=== PATIENT | female | born 1930 | race Caucasian/White ===

== ENCOUNTER 2016-12-25 16:47 | Emergency (ER) | payer OTHER ==
[~2016-12-25] VITALS: Ht 160 cm; Wt 46.7 kg
[2016-12-25 16:47] VITALS: BP_SYST 115
[~2016-12-25 16:47] MED LIST: AMLO5TAB4 PO; BENA40TA2 PO; LIP10 PO; NITR-85 PO
--- NOTE | 2016-12-25 16:47 | NUR ---
Placed in room 3 . Placed on cardiac cath rn, blood pressure machine and pulse oximeter. To gown for exam. Side rails up.
--- NOTE | 2016-12-25 17:00 | NUR ---
ER at bedside examining patient.
--- NOTE | 2016-12-25 17:09 | NUR ---
transported to CT scan via [facility]
--- NOTE | 2016-12-25 17:11 | NUR ---
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 per her son,they were outside walking, her body was shaky,assited to sit down,she had syncope episode for a few minutes. no trama noted.pt is currently awake,alert oriented x4. denies any pain.pt has early stage of dementia.no apparent neuro deficit noted.
--- NOTE | 2016-12-25 17:26 | NUR ---
returned back from the ct scan
[2016-12-25 17:27] LABS: BASOPHILS % (AUTO) 0.7 % (0.0-2.0); EOSINOPHILS # (AUTO) 0.4 K/uL (0.0-0.4); EOSINOPHILS % (AUTO) 6.8 % (0.0-4.0); HEMATOCRIT 37.3 % (36-48); HEMOGLOBIN 12.7 g/dL (12.0-16.0); LYMPHOCYTES # (AUTO) 0.8 K/uL (1.0-5.5); LYMPHOCYTES % (AUTO) 12.5 % (20.5-51.5); MEAN CORPUSCULAR HEMOGLOBIN 28 pg (27-31); MEAN CORPUSCULAR HGB CONC 34 % (32-36); MEAN CORPUSCULAR VOLUME 84 fL (79.0-98.0); MONOCYTES # (AUTO) 0.4 K/uL (0.0-1.0); MONOCYTES % (AUTO) 5.4 % (1.7-9.3); NEUTROPHILS % (AUTO) 74.6 % (40.0-70.0); PLATELET COUNT (AUTO) 220 K/uL (130-430); RED BLOOD CELL COUNT(AUTO) 4.45 MIL/uL (4.2-6.2); RED CELL DISTRIBUTION WIDTH 13.3 % (9.0-15.0); WHITE BLOOD COUNT (AUTO) 6.6 K/uL (4.8-10.8)
[2016-12-25 17:34] LABS: ANION GAP 5 (5-15); CHLORIDE 107 mmol/L (98-107); CREATININE 1.47 mg/dL (0.55-1.30); GLUCOSE 202 mg/dL (70-99); POTASSIUM 4.2 mmol/L (3.5-5.1); SODIUM SERUM 138 mmol/L (136-145); UREA NITROGEN, BLOOD 28 mg/dL (8-21)
[2016-12-25 17:38] LABS: INR 1.1 (0.8-1.2); PROTHROMBIN TIME 12.1 SECS (9.5-12.5)
[2016-12-25 17:39] LABS: ALANINE AMINOTRANSFERASE 29 U/L (12-78); ALBUMIN 3.6 g/dL (3.4-4.8); ASPARTATE AMINOTRANSFERASE 13 U/L (10-37); TOTAL BILIRUBIN 0.4 mg/dL (0.0-1.0); TOTAL PROTEIN, SERUM 7.5 g/dL (6.4-8.3)
--- NOTE | 2016-12-25 18:32 | NUR ---
# 14 FR In and Out catheter with use of sterile technique. Immediate return of 50 ml urine noted. Urine sample collected and sent to lab. Pt tolerated procedure . Patient unable to toilet self.
[2016-12-25 18:45] LABS: BILIRUBIN,URINE NEGATIVE (NEGATIVE); BLOOD, URINE NEGATIVE (NEGATIVE); CLARITY/URINE HAZY (CLEAR); COLOR,URINE YELLOW (YELLOW); GLUCOSE,URINE NEGATIVE (NEGATIVE); KETONES,URINE NEGATIVE (NEGATIVE); LEUKOCYTE ESTERASE ,URINE NEGATIVE (NEGATIVE); NITRITE, URINE NEGATIVE (NEGATIVE); PROTEIN URINE TRACE (NEGATIVE); UROBILINOGEN,URINE 0.2 (0.2-1.0)
[2016-12-25] MEDS ORDERED: NACL 0.9% 1,000 ML IV ONE (19:00)
[2016-12-25 19:06] LABS: RBC,URINE 0-3 /HPF (0-3)
[2016-12-25 19:07] LABS: BACTERIA,URINE MANY /HPF (None Seen); MUCUS,URINE 3+ /LPF (None Seen)
--- NOTE | 2016-12-25 19:11 | NUR ---
report given to juan ramon MOREIRA
[2016-12-25 20:00] VITALS: BP_SYST 133
--- NOTE | 2016-12-25 20:00 | NUR ---
Patient given written and verbal discharge instructions and verbalizes understanding. ER MD Orona discussed with patient the results and treatment provided. Patient in stable condition. ID arm band removed. no rx given. Patient educated on pain management and to follow up with PMD. Pain Scale 0/10. Opportunity for questions provided and answered.
== END 2016-12-25 20:00 | disposition home or self-care (01) ==
LOC: SED 16:47
DX: E86.0 Dehydration (principal); R55 Syncope and collapse; N39.0 Urinary tract infection, site not specified; F03.90 Unspecified dementia, unspecified severity, without behavioral disturbance, psychotic disturbance, mood disturbance, and anxiety; E11.9 Type 2 diabetes mellitus without complications; I10 Essential (primary) hypertension
CPT/HCPCS: 36415; 70450-TC; 71010; 80053; 81000-TC; 84484; 85025; 85610-TC; 85730-TC; 87086; 93005; 96360; 99285; J7030

== ENCOUNTER 2017-03-21 13:48 | Emergency (ER) | payer OTHER ==
[~2017-03-21] VITALS: Ht 160 cm; Wt 55.3 kg
[2017-03-21 14:01] VITALS: BP_SYST 125
[2017-03-21 15:34] LABS: BILIRUBIN,URINE NEGATIVE (NEGATIVE); CLARITY/URINE CLEAR (CLEAR); COLOR,URINE YELLOW (YELLOW); GLUCOSE,URINE NEGATIVE (NEGATIVE); KETONES,URINE NEGATIVE (NEGATIVE); LEUKOCYTE ESTERASE ,URINE NEGATIVE (NEGATIVE); NITRITE, URINE NEGATIVE (NEGATIVE); PH,URINE 5.5 (5.0-8.0); PROTEIN URINE NEGATIVE (NEGATIVE); UROBILINOGEN,URINE 0.2 (0.2-1.0)
[2017-03-21 15:35] LABS: BLOOD, URINE TRACE (NEGATIVE)
[2017-03-21 15:56] LABS: BACTERIA,URINE FEW /HPF (None Seen); RBC,URINE NONE SEEN /HPF (0-3)
[2017-03-21 15:57] LABS: MUCUS,URINE 2+ /LPF (None Seen)
[2017-03-21 16:35] LABS: ANION GAP 7 (5-15); CALCIUM 10.3 mg/dL (8.4-11.0); CHLORIDE 105 mmol/L (98-107); CREATININE 1.22 mg/dL (0.55-1.30); GLUCOSE 95 mg/dL (70-99); POTASSIUM 3.8 mmol/L (3.5-5.1); SODIUM SERUM 139 mmol/L (136-145); UREA NITROGEN, BLOOD 24 mg/dL (8-21)
[2017-03-21 16:44] LABS: ALANINE AMINOTRANSFERASE 40 U/L (12-78); ALBUMIN 3.8 g/dL (3.4-4.8); ASPARTATE AMINOTRANSFERASE 29 U/L (10-37); TOTAL BILIRUBIN 0.6 mg/dL (0.0-1.0); TOTAL PROTEIN, SERUM 7.3 g/dL (6.4-8.3)
[2017-03-21 18:13] LABS: BASOPHILS # (AUTO) 0.1 K/uL (0.0-0.2); BASOPHILS % (AUTO) 0.7 % (0.0-2.0); EOSINOPHILS # (AUTO) 0.2 K/uL (0.0-0.4); EOSINOPHILS % (AUTO) 2.3 % (0.0-4.0); HEMATOCRIT 36.2 % (36-48); LYMPHOCYTES # (AUTO) 0.8 K/uL (1.0-5.5); LYMPHOCYTES % (AUTO) 11.4 % (20.5-51.5); MEAN CORPUSCULAR HEMOGLOBIN 29 pg (27-31); MEAN CORPUSCULAR HGB CONC 33 % (32-36); MEAN CORPUSCULAR VOLUME 86 fL (79.0-98.0); MONOCYTES # (AUTO) 0.3 K/uL (0.0-1.0); NEUTROPHILS # (AUTO) 5.8 K/uL (1.8-7.7); NEUTROPHILS % (AUTO) 81.6 % (40.0-70.0); PLATELET COUNT (AUTO) 224 K/uL (130-430); RED BLOOD CELL COUNT(AUTO) 4.21 MIL/uL (4.2-6.2); RED CELL DISTRIBUTION WIDTH 13.3 % (9.0-15.0); WHITE BLOOD COUNT (AUTO) 7.2 K/uL (4.8-10.8)
[2017-03-21 18:28] LABS: BARBITURATE, URINE NEGATIVE (NEG <=200); BENZODIAZEPINE, URINE NEGATIVE (NEG <=150); CANNABINOID, URINE NEGATIVE (NEG <=50); COCAINE, URINE NEGATIVE (NEG <=150); METHAMPHETAMINES SCREEN,URINE NEGATIVE (NEG <=500); OPIATE, URINE NEGATIVE (NEG <=100); PHENCYCLIDINE SCREEN,URINE NEGATIVE (NEG <=25); UR TRICYCLIC ANTIDEPRESSANTS NEGATIVE (NEG <=300); URINE AMPHETAMINE NEGATIVE (NEG <=500); URINE METHADONE NEGATIVE (NEG <=200); URINE OXYCODONE SCREEN NEGATIVE (NEG <=100); URINE PROPOXYPHENE SCREEN NEGATIVE (NEG <=300)
[2017-03-21 18:45] VITALS: BP_SYST 136
== END 2017-03-21 18:45 | disposition home or self-care (01) ==
LOC: SED 13:48
DX: F03.90 Unspecified dementia, unspecified severity, without behavioral disturbance, psychotic disturbance, mood disturbance, and anxiety (principal); E11.9 Type 2 diabetes mellitus without complications; I10 Essential (primary) hypertension
CPT/HCPCS: 36415; 70450-TC; 71010; 80053; 80307; 81000-TC; 84484; 85025; 93005; 99285

== ENCOUNTER 2018-03-04 17:42 | Inpatient (IN) | payer OTHER ==
[~2018-03-04] VITALS: Ht 160 cm; Wt 50.8 kg
[2018-03-04 17:58] VITALS: BP_SYST 132
[2018-03-04 18:45] LABS: ANION GAP 11 (5-15); CALCIUM 11.6 mg/dL (8.4-11.0); CHLORIDE 106 mmol/L (98-107); CREATININE 0.97 mg/dL (0.55-1.30); GLUCOSE 115 mg/dL (70-99); POTASSIUM 4.2 mmol/L (3.5-5.1); SODIUM SERUM 139 mmol/L (136-145); UREA NITROGEN, BLOOD 31 mg/dL (8-21)
[2018-03-04 18:46] LABS: BASOPHILS # (AUTO) 0.1 K/uL (0.0-0.2); BASOPHILS % (AUTO) 0.8 % (0.0-2.0); EOSINOPHILS # (AUTO) 0.3 K/uL (0.0-0.4); EOSINOPHILS % (AUTO) 3.9 % (0.0-4.0); HEMATOCRIT 32.3 % (36-48); HEMOGLOBIN 11.1 g/dL (12.0-16.0); LYMPHOCYTES # (AUTO) 1.3 K/uL (1.0-5.5); LYMPHOCYTES % (AUTO) 16.8 % (20.5-51.5); MEAN CORPUSCULAR HEMOGLOBIN 31 pg (27-31); MEAN CORPUSCULAR HGB CONC 34 % (32-36); MEAN CORPUSCULAR VOLUME 90 fL (79.0-98.0); MONOCYTES # (AUTO) 0.4 K/uL (0.0-1.0); NEUTROPHILS # (AUTO) 5.5 K/uL (1.8-7.7); NEUTROPHILS % (AUTO) 73.5 % (40.0-70.0); PLATELET COUNT (AUTO) 185 K/uL (130-430); RED BLOOD CELL COUNT(AUTO) 3.58 MIL/uL (4.2-6.2); RED CELL DISTRIBUTION WIDTH 13.1 % (9.0-15.0); WHITE BLOOD COUNT (AUTO) 7.6 K/uL (4.8-10.8)
[2018-03-04 18:50] LABS: ALANINE AMINOTRANSFERASE 20 U/L (12-78); ALBUMIN 3.3 g/dL (3.4-4.8); ASPARTATE AMINOTRANSFERASE 12 U/L (10-37); PROTHROMBIN TIME 10.5 SECS (9.5-12.5); TOTAL BILIRUBIN 0.5 mg/dL (0.0-1.0)
[2018-03-04 19:26] LABS: BILIRUBIN,URINE NEGATIVE (NEGATIVE); BLOOD, URINE 1+ (NEGATIVE); CLARITY/URINE HAZY (CLEAR); COLOR,URINE YELLOW (YELLOW); GLUCOSE,URINE NEGATIVE (NEGATIVE); KETONES,URINE NEGATIVE (NEGATIVE); LEUKOCYTE ESTERASE ,URINE 1+ (NEGATIVE); NITRITE, URINE POSITIVE (NEGATIVE); PH,URINE 5.5 (5.0-8.0); PROTEIN URINE NEGATIVE (NEGATIVE); UROBILINOGEN,URINE 0.2 (0.2-1.0)
[2018-03-04 19:35] LABS: BACTERIA,URINE MANY /HPF (None Seen); MUCUS,URINE None Seen /LPF (None Seen)
[2018-03-04] MEDS ORDERED: GLU850 PO (19:40)
[2018-03-04] MEDS ORDERED: [UNRECOGNIZED DRUG - CODE] PO (19:40)
[2018-03-04] MEDS ORDERED: cefTRIAXone 1 GM IVPB PREMIX 50 ML IV ONE (19:45)
[2018-03-04] MEDS ORDERED: NACL 0.9% 1,000 ML IV SCH (20:15)
[2018-03-04 20:55] VITALS: BP_SYST 141
[2018-03-05] MEDS: D5/0.45 NS 1,000 ML IV SCH ×4 (00:51→20:26)
[2018-03-05 06:41] LABS: BASOPHILS % (AUTO) 0.6 % (0.0-2.0); EOSINOPHILS # (AUTO) 0.2 K/uL (0.0-0.4); HEMATOCRIT 32.3 % (36-48); HEMOGLOBIN 10.8 g/dL (12.0-16.0); LYMPHOCYTES # (AUTO) 1.1 K/uL (1.0-5.5); LYMPHOCYTES % (AUTO) 18.5 % (20.5-51.5); MEAN CORPUSCULAR HEMOGLOBIN 31 pg (27-31); MEAN CORPUSCULAR HGB CONC 33 % (32-36); MEAN CORPUSCULAR VOLUME 92 fL (79.0-98.0); MONOCYTES # (AUTO) 0.4 K/uL (0.0-1.0); NEUTROPHILS # (AUTO) 4.4 K/uL (1.8-7.7); NEUTROPHILS % (AUTO) 69.9 % (40.0-70.0); PLATELET COUNT (AUTO) 186 K/uL (130-430); RED BLOOD CELL COUNT(AUTO) 3.53 MIL/uL (4.2-6.2); RED CELL DISTRIBUTION WIDTH 12.9 % (9.0-15.0); WHITE BLOOD COUNT (AUTO) 6.1 K/uL (4.8-10.8)
[2018-03-05 06:54] LABS: ALANINE AMINOTRANSFERASE 17 U/L (12-78); ALBUMIN 3.1 g/dL (3.4-4.8); ANION GAP 9 (5-15); ASPARTATE AMINOTRANSFERASE 9 U/L (10-37); CALCIUM 10.8 mg/dL (8.4-11.0); CHLORIDE 106 mmol/L (98-107); CREATININE 0.89 mg/dL (0.55-1.30); GLUCOSE 162 mg/dL (70-99); POTASSIUM 3.7 mmol/L (3.5-5.1); SODIUM SERUM 140 mmol/L (136-145); TOTAL BILIRUBIN 0.5 mg/dL (0.0-1.0); UREA NITROGEN, BLOOD 22 mg/dL (8-21)
[2018-03-05] MEDS: INSULIN REGULAR, HUMAN 100 UNITS/ML, 10 ML VIAL (novoLIN R) SUBCUT PRN ×4 (07:02→20:28)
[2018-03-05 07:45] VITALS: BP_SYST 151
[2018-03-05] MEDS: metFORMIN HCL 500 MG TABLET PO SCH ×2 (09:00→20:17)
[2018-03-05] MEDS ORDERED: DEXTROSE 50% JECT 50 ML DISP.SYRIN IVP PRN (09:15)
[2018-03-05 09:51] LABS: FREE T4 (FREE THYROXINE) 0.9 ng/dL (0.6-1.6); THYROID STIMULATING HORMONE 2.27 uIu/mL (0.34-4.82)
[2018-03-05] MEDS ORDERED: BENAZEPRIL HCL 20 MG TABLET (LOTENSIN) PO ONE (10:45)
[2018-03-05] MEDS ORDERED: amLODIPine BESYLATE 5 MG TABLET PO ONE (11:00)
[2018-03-05] MEDS: ATORVASTATIN 10 MG TABLET PO SCH (11:04)
[2018-03-05] MEDS: LACTOBACILLUS RHAMNOSUS GG 1 CAP CAPSULE PO SCH (11:06)
[2018-03-05 11:30] VITALS: BP_SYST 133
[2018-03-05 15:32] VITALS: BP_SYST 131
[2018-03-05 19:58] VITALS: BP_SYST 138
[2018-03-05] MEDS: cefTRIAXone 1 GM IVPB PREMIX 50 ML IV SCH (20:19)
[2018-03-06 00:46] VITALS: BP_SYST 143
[2018-03-06 05:12] LABS: T3 UPTAKE 30 % (24-39); TRIIODOTHYRONINE (T3) 95 ng/dL (71-180)
[2018-03-06 06:59] LABS: BASOPHILS % (AUTO) 0.3 % (0.0-2.0); EOSINOPHILS # (AUTO) 0.3 K/uL (0.0-0.4); HEMATOCRIT 29.2 % (36-48); HEMOGLOBIN 10.1 g/dL (12.0-16.0); LYMPHOCYTES % (AUTO) 15.8 % (20.5-51.5); MEAN CORPUSCULAR HEMOGLOBIN 31 pg (27-31); MEAN CORPUSCULAR HGB CONC 35 % (32-36); MEAN CORPUSCULAR VOLUME 89 fL (79.0-98.0); MONOCYTES # (AUTO) 0.3 K/uL (0.0-1.0); NEUTROPHILS % (AUTO) 73.9 % (40.0-70.0); PLATELET COUNT (AUTO) 188 K/uL (130-430); RED BLOOD CELL COUNT(AUTO) 3.29 MIL/uL (4.2-6.2); RED CELL DISTRIBUTION WIDTH 13.1 % (9.0-15.0); WHITE BLOOD COUNT (AUTO) 6.6 K/uL (4.8-10.8)
[2018-03-06 07:09] LABS: ANION GAP 11 (5-15); CALCIUM 10.1 mg/dL (8.4-11.0); CHLORIDE 111 mmol/L (98-107); GLUCOSE 134 mg/dL (70-99); PHOSPHORUS 2.5 mg/dL (2.7-4.5); POTASSIUM 3.7 mmol/L (3.5-5.1); SODIUM SERUM 144 mmol/L (136-145); UREA NITROGEN, BLOOD 19 mg/dL (8-21)
[2018-03-06 08:00] VITALS: BP_SYST 157
[2018-03-06] MEDS: LACTOBACILLUS RHAMNOSUS GG 1 CAP CAPSULE PO SCH (08:29)
[2018-03-06] MEDS: metFORMIN HCL 500 MG TABLET PO SCH ×2 (08:29→21:23)
[2018-03-06] MEDS: ATORVASTATIN 10 MG TABLET PO SCH (08:29)
[2018-03-06] MEDS: BENAZEPRIL HCL 20 MG TABLET (LOTENSIN) PO SCH (08:30)
[2018-03-06] MEDS: amLODIPine BESYLATE 5 MG TABLET PO SCH (08:30)
[2018-03-06] MEDS ORDERED: DOCUSATE SODIUM 100 MG CAPSULE PO ONE (10:15)
[2018-03-06] MEDS ORDERED: NAPH,MB-DB/K PH,MBDB 250 MG TAB PO ONE (10:15)
[2018-03-06 11:29] VITALS: BP_SYST 143
[2018-03-06] MEDS ORDERED: CARB1TAB8 PO (11:37)
[2018-03-06] MEDS: INSULIN REGULAR, HUMAN 100 UNITS/ML, 10 ML VIAL (novoLIN R) SUBCUT PRN ×2 (12:06→21:22)
[2018-03-06] MEDS: CARBIDOPA/LEVODOPA 10/100 MG TABLET PO SCH ×3 (13:14→21:25)
[2018-03-06] MEDS: D5/0.45 NS 1,000 ML IV SCH (13:15)
[2018-03-06 15:25] VITALS: BP_SYST 143
[2018-03-06 18:00] VITALS: BP_SYST 143
[2018-03-06 20:00] VITALS: BP_SYST 158
[2018-03-06] MEDS: cefTRIAXone 1 GM IVPB PREMIX 50 ML IV SCH (21:14)
[2018-03-06] MEDS: DOCUSATE SODIUM 100 MG CAPSULE PO SCH (21:14)
[2018-03-07] VITALS: BP_SYST 150
[2018-03-07] MEDS: D5/0.45 NS 1,000 ML IV SCH (05:29)
[2018-03-07 07:42] LABS: EOSINOPHILS # (AUTO) 0.4 K/uL (0.0-0.4); MONOCYTES # (AUTO) 0.4 K/uL (0.0-1.0)
[2018-03-07 07:43] LABS: ANION GAP 7 (5-15); CALCIUM 10.9 mg/dL (8.4-11.0); CHLORIDE 111 mmol/L (98-107); CREATININE 0.84 mg/dL (0.55-1.30); GLUCOSE 105 mg/dL (70-99); PHOSPHORUS 2.6 mg/dL (2.7-4.5); POTASSIUM 3.9 mmol/L (3.5-5.1); SODIUM SERUM 142 mmol/L (136-145); UREA NITROGEN, BLOOD 19 mg/dL (8-21)
[2018-03-07 07:56] LABS: BASOPHILS % (AUTO) 0.6 % (0.0-2.0); EOSINOPHILS % (AUTO) 4.9 % (0.0-4.0); HEMATOCRIT 30.2 % (36-48); HEMOGLOBIN 10.4 g/dL (12.0-16.0); LYMPHOCYTES # (AUTO) 1.1 K/uL (1.0-5.5); LYMPHOCYTES % (AUTO) 13.9 % (20.5-51.5); MEAN CORPUSCULAR HEMOGLOBIN 31 pg (27-31); MEAN CORPUSCULAR HGB CONC 34 % (32-36); MEAN CORPUSCULAR VOLUME 91 fL (79.0-98.0); NEUTROPHILS % (AUTO) 75.6 % (40.0-70.0); PLATELET COUNT (AUTO) 225 K/uL (130-430); RED BLOOD CELL COUNT(AUTO) 3.32 MIL/uL (4.2-6.2); RED CELL DISTRIBUTION WIDTH 13.3 % (9.0-15.0); WHITE BLOOD COUNT (AUTO) 7.9 K/uL (4.8-10.8)
[2018-03-07] MEDS: metFORMIN HCL 500 MG TABLET PO SCH (09:49)
[2018-03-07] MEDS: DOCUSATE SODIUM 100 MG CAPSULE PO SCH (09:49)
[2018-03-07] MEDS: amLODIPine BESYLATE 5 MG TABLET PO SCH (09:50)
[2018-03-07] MEDS: LACTOBACILLUS RHAMNOSUS GG 1 CAP CAPSULE PO SCH (09:50)
[2018-03-07] MEDS: ATORVASTATIN 10 MG TABLET PO SCH (09:50)
[2018-03-07] MEDS: BENAZEPRIL HCL 20 MG TABLET (LOTENSIN) PO SCH (09:50)
[2018-03-07] MEDS: CARBIDOPA/LEVODOPA 10/100 MG TABLET PO SCH ×2 (09:50→15:45)
[2018-03-07] MEDS ORDERED: NAPH,MB-DB/K PH,MBDB 250 MG TAB PO ONE (10:45)
[2018-03-07] MEDS ORDERED: BENA20TA75 PO ×2 (11:19→11:28)
[2018-03-07] MEDS ORDERED: AMLO5TAB4 PO (11:19)
[2018-03-07] MEDS ORDERED: LACT1CAP57 PO (11:19)
[2018-03-07] MEDS ORDERED: DOCU-144 PO (11:19)
[2018-03-07] MEDS ORDERED: CIPR-211 PO (11:21)
[2018-03-07 11:34] VITALS: BP_SYST 178
[2018-03-07] MEDS ORDERED: BENAZEPRIL HCL 20 MG TABLET (LOTENSIN) PO ONE (11:45)
[2018-03-07] MEDS ORDERED: amLODIPine BESYLATE 5 MG TABLET PO ONE (11:45)
[2018-03-07 15:32] VITALS: BP_SYST 139
[2018-03-07 18:30] VITALS: BP_SYST 139
[2018-03-08] MEDS ORDERED: amLODIPine BESYLATE 5 MG TABLET PO SCH (09:00)
[2018-03-08] MEDS ORDERED: BENAZEPRIL HCL 20 MG TABLET (LOTENSIN) PO SCH (09:00)
== END 2018-03-07 19:47 | disposition home health service (06) | DRG 682 ==
LOC: SED 17:42 → STU 20:11 → SMU 03-06 18:52
PROVIDERS: ADMIT Family Medicine; ATTEND Family Medicine
DX: N17.0 Acute kidney failure with tubular necrosis (principal); G93.41 Metabolic encephalopathy; N39.0 Urinary tract infection, site not specified; E44.0 Moderate protein-calorie malnutrition; Z68.1 Body mass index [BMI] 19.9 or less, adult; F03.90 Unspecified dementia, unspecified severity, without behavioral disturbance, psychotic disturbance, mood disturbance, and anxiety; I10 Essential (primary) hypertension; E78.5 Hyperlipidemia, unspecified; E11.65 Type 2 diabetes mellitus with hyperglycemia; E83.39 Other disorders of phosphorus metabolism; B96.20 Unspecified Escherichia coli [E. coli] as the cause of diseases classified elsewhere; Z79.899 Other long term (current) drug therapy; Z90.49 Acquired absence of other specified parts of digestive tract; Z79.84 Long term (current) use of oral hypoglycemic drugs; Z83.3 Family history of diabetes mellitus
CPT/HCPCS: 36415; 71045; 74018; 80048; 80053; 80061; 81000-TC; 82140-TC; 82150-TC; 82962; 83036; 83605; 83690-TC; 83735-TC; 83880; 84100-TC; 84439; 84443-TC; 84479; 84480; 84484; 85025; 85610-TC; 85730-TC; 87040-TC; 87086; 87186-TC; 93005; 93306; 96365; 97110-GP; 97116-GP; 97530-GP; 99285; J0696; J1815; J7030

== ENCOUNTER 2018-05-29 11:29 | Inpatient (IN) | payer OTHER ==
[2018-05-29] VITALS (7 sets, daily range): BP systolic 148–213
[~2018-05-29] VITALS: Ht 165.1 cm; Wt 49.0 kg
[~2018-05-29 11:29] MED LIST changes: +BENA20TA75 PO; -BENA40TA2 PO; +CARB1TAB8 PO; +CIPR-211 PO; +DOCU-144 PO; +GLU850 PO; +LACT1CAP57 PO; -NITR-85 PO
--- NOTE | 2018-05-29 11:42 | NUR ---
Patient to ER bed 01 to gown for evaluation. Side rails up. Report given to ALFREDO MOREIRA.
--- NOTE | 2018-05-29 11:43 | NUR ---
Patient was not able to take PO medication this morning or eat breakfast.
--- NOTE | 2018-05-29 11:45 | NUR ---
ER Dr. Winchester at bedside examining patient.
--- NOTE | 2018-05-29 11:50 | NUR ---
Pt presents to ER brought in by family after having an unwitnessed fall yesterday. Per pt's family, pt was assisted into the bathroom and left unattended, when family returned to restroom pt was found on the ground outside of bathroom laying on her back. Per pt's family, no bleeding present after fall, no lacerations. Pt's family state that this morning, pt had no complaints, was having conversations with family, then while at the table having breakfast pt had sudden onset of lethargy and unresponsiveness. Pt denies any pain but grimaces when abdomen is palpated. Upon arrival to ER, pt AOX2, respirations even and unlabored. Family at bedside.
--- NOTE | 2018-05-29 11:55 | NUR ---
# 22 gauge angiocath placed to LAC. Use of asceptic technique. Opsite placed over site. Blood return noted. Blood for lab drawn from site. Flushed with 10 cc of normal saline. No evidence of infiltration noted. Patient tolerated well.
--- NOTE | 2018-05-29 12:10 | NUR ---
Patient transported to radiology via gurney, accompanied by rad staff.
[2018-05-29 12:22] LABS: BASOPHILS # (AUTO) 0.1 K/uL (0.0-0.2); BASOPHILS % (AUTO) 1.1 % (0.0-2.0); EOSINOPHILS # (AUTO) 0.2 K/uL (0.0-0.4); HEMATOCRIT 38.1 % (36-48); HEMOGLOBIN 12.6 g/dL (12.0-16.0); LYMPHOCYTES # (AUTO) 0.8 K/uL (1.0-5.5); LYMPHOCYTES % (AUTO) 9.5 % (20.5-51.5); MEAN CORPUSCULAR HEMOGLOBIN 29 pg (27-31); MEAN CORPUSCULAR HGB CONC 33 % (32-36); MEAN CORPUSCULAR VOLUME 88 fL (79.0-98.0); MONOCYTES # (AUTO) 0.2 K/uL (0.0-1.0); MONOCYTES % (AUTO) 2.8 % (1.7-9.3); NEUTROPHILS # (AUTO) 7.2 K/uL (1.8-7.7); NEUTROPHILS % (AUTO) 84.6 % (40.0-70.0); RED BLOOD CELL COUNT(AUTO) 4.32 MIL/uL (4.2-6.2); WHITE BLOOD COUNT (AUTO) 8.5 K/uL (4.8-10.8)
[2018-05-29 12:30] LABS: PLATELET COUNT (AUTO) 243 K/uL (130-430)
--- NOTE | 2018-05-29 12:30 | NUR ---
Returned from radiology, back to [facility].
[2018-05-29] MEDS ORDERED: IRBE300T40 PO (12:39)
[2018-05-29] MEDS ORDERED: ENALAPRILAT DIHYDRATE 1.25 MG/ML VIAL IVP ONE ×2 (12:45→13:45)
--- NOTE | 2018-05-29 12:50 | NUR ---
Medication reconciliation completed based upon list provided by family.
[2018-05-29] MEDS ORDERED: BENA20TA2 PO (12:52)
[2018-05-29] MEDS ORDERED: LACT1CAP61 PO (12:52)
[2018-05-29] MEDS ORDERED: DOCU-144 PO (12:52)
[2018-05-29] MEDS ORDERED: NOR10 PO (12:52)
[2018-05-29] MEDS ORDERED: MEGE40TA PO (12:52)
[2018-05-29 13:14] LABS: ANION GAP 10 (5-15); CALCIUM 11.2 mg/dL (8.4-11.0); CHLORIDE 104 mmol/L (98-107); GLUCOSE 163 mg/dL (70-99); POTASSIUM 4.1 mmol/L (3.5-5.1); SODIUM SERUM 139 mmol/L (136-145); UREA NITROGEN, BLOOD 19 mg/dL (8-21)
--- NOTE | 2018-05-29 13:16 | NUR ---
Medicated per MD orders. IVF infusing with no s/s of infiltration at this time. Will continue to monitor
[2018-05-29 13:19] LABS: INR 1.1 (0.8-1.2); PROTHROMBIN TIME 10.9 SECS (9.5-12.5)
[2018-05-29 13:23] LABS: ALANINE AMINOTRANSFERASE 19 U/L (12-78); ALBUMIN 3.5 g/dL (3.4-4.8); ASPARTATE AMINOTRANSFERASE 17 U/L (10-37); LIPASE 139 U/L (73-393); TOTAL BILIRUBIN 0.8 mg/dL (0.0-1.0)
[2018-05-29 14:13] LABS: BILIRUBIN,URINE NEGATIVE (NEGATIVE); BLOOD, URINE 2+ (NEGATIVE); CLARITY/URINE CLOUDY (CLEAR); COLOR,URINE YELLOW (YELLOW); GLUCOSE,URINE NEGATIVE (NEGATIVE); KETONES,URINE NEGATIVE (NEGATIVE); LEUKOCYTE ESTERASE ,URINE 2+ (NEGATIVE); NITRITE, URINE NEGATIVE (NEGATIVE); PROTEIN URINE 2+ (NEGATIVE); UROBILINOGEN,URINE 0.2 (0.2-1.0)
[2018-05-29 14:25] LABS: BACTERIA,URINE MANY /HPF (None Seen); MUCUS,URINE None Seen /LPF (None Seen); YEAST,URINE None Seen /HPF (None Seen)
--- NOTE | 2018-05-29 14:28 | NUR ---
Admitting orders taken from Dr. Grigsby.
[2018-05-29] MEDS ORDERED: cefTRIAXone 1 GM IVPB PREMIX 50 ML IV ONE (14:30)
[2018-05-29] MEDS ORDERED: LABETALOL 100 MG/ 20ML VIAL IVP ONE (14:30)
--- NOTE | 2018-05-29 14:30 | NUR ---
Post administration of Labetalol 10mg, BP 183/87 HR 79. Pt tolerated med administration well; will continue to monitor.
--- NOTE | 2018-05-29 14:40 | NUR ---
Laboratory at bedside for blood draw.
--- NOTE | 2018-05-29 14:57 | NUR ---
ADMISSION NOTE Received patient from ER via [facility], received report from TOUCHER UP. Patient admitted with diagnosis of SP FALL. Patient oriented to hospital routine, call light, toileting and safety-patient verbalized understanding.
--- NOTE | 2018-05-29 15:00 | NUR ---
Patient will be admitted to care of Dr. Grigsby. Admitted to tele unit. Will go to room 104b. Belongings list completed. Summary report printed. Report will be given at bedside. Transfer to tele via ACLS protocol. Licensed nurse present. IV present no signs or symptoms of infiltration.
--- NOTE | 2018-05-29 16:17 | NUR ---
Consult called: for Dr. Perez, regarding altered mental status, ordered by Dr. Grigsby, spoke with Michelle.
[2018-05-29] MEDS ORDERED: ZOLPIDEM TARTRATE 5 MG TABLET PO PRN (16:45)
[2018-05-29] MEDS ORDERED: ACETAMINOPHEN 325 MG TABLET PO PRN (16:45)
[2018-05-29] MEDS ORDERED: BENAZEPRIL HCL 20 MG TABLET (LOTENSIN) PO ONE (17:00)
--- NOTE | 2018-05-29 17:10 | NUR ---
BP: BP = 192/103, Dr Grigsby is aware. First dose of Benazepril 20mg given. Will continue to monitor.
[2018-05-29] MEDS ORDERED: INSULIN REGULAR, HUMAN 100 UNITS/ML, 10 ML VIAL (novoLIN R) SUBCUT PRN (17:15)
--- NOTE | 2018-05-29 17:30 | NUR ---
SKIN CARE: Bilateral heels off loaded with pillow due to redness. Patient needs assist in turning.
[2018-05-29] MEDS ORDERED: GLUCOSE 15 GM GEL (in 37.5 GM TUBE) PO PRN ×2 (17:45)
[2018-05-29] MEDS ORDERED: DEXTROSE 50%-WATER 50 ML DISP.SYRIN IVP PRN ×2 (17:45)
--- NOTE | 2018-05-29 18:19 | NUR ---
end of shift: Patient is still confused but cooperative. Ate 10% for dinner. Bilateral SCD applied for DVT prophylaxis.
--- NOTE | 2018-05-29 19:22 | NUR ---
ELEVATED BP: Bp recheck = 226/107after Lotensin dose. Dr. Grigsby is aware with new order of Norvasc 10 mg now.
--- NOTE | 2018-05-29 19:25 | NUR ---
OPENING NOTE RECEIVED PT AND REPORT FROM DAY SHIFT NURSE. PT IS ASLEEP IN BED. PT SPEAKS LUXEMBOURGER. PT APPEARS CONFUSED AND LETHARGIC. PT ON ROOM AIR. IV IS INTACT AND PATENT. FAMILY AT BEDSIDE. FALL AND SAFETY PRECAUTIONS IN PLACE. BED LOCKED IN LOWEST POSITION. BED ALARM ON. CALL LIGHT WITH PT. WILL FOLLOW ORDERS FOR BLOOD PRESSURE MANAGEMENT. WILL MONITOR CLOSELY.
[2018-05-29] MEDS ORDERED: amLODIPine BESYLATE 10 MG TABLET PO ONE (19:30)
--- NOTE | 2018-05-29 19:36 | NUR ---
BP WASH OIL COOLER OPERATOR ADMINISTERED BP MED PER ORDERS. BP CURRENTLY 213/95. WILL CONTINUE TO MONITOR.
--- NOTE | 2018-05-29 20:47 | NUR ---
REASSESS BP BP NOW 162/87, HR:85
--- NOTE | 2018-05-29 21:00 | NUR ---
ARMINDA, ORDERS INFORMED DR HILLIARD OF BLOOD PRESSURE AND POSSIBLE NEED FOR SPEECH EVALUATION. DR HILLIARD WILL PUT IN ORDERS. WILL FOLLOW ORDERS.
[2018-05-29] MEDS: DOCUSATE SODIUM 100 MG CAPSULE PO SCH (21:22)
[2018-05-29] MEDS: CARBIDOPA/LEVODOPA 10/100 MG TABLET PO SCH (21:22)
--- NOTE | 2018-05-29 21:22 | NUR ---
GENERAL LOT ATTENDANT/ BS ADMINISTERED MEDICATIONS PER ORDERS. BLOOD SUGAR READING OF 162. NO COVERAGE PER SLIDING SCALE. WILL CONTINUE TO MONITOR.
--- NOTE | 2018-05-29 23:50 | NUR ---
ROUNDING NOTE PT RESTING IN BED. PT APPEARS MORE AWAKE. PT REMAINS CONFUSED. PT SPEAKS NEPALI. PT DENIES ANY NEEDS. WILL CONTINUE TO MONITOR.
--- NOTE | 2018-05-30 01:25 | NUR ---
ROUNDING NOTE PT IS SLEEPING IN BED. NO S/S OF DISTRESS OR DISCOMFORT. CALL LIGHT WITH PT. WILL CONTINUE TO MONITOR.
--- NOTE | 2018-05-30 03:30 | NUR ---
ROUNDING NOTE PT REMAINS ASLEEP. NO SIGNS OF ACUTE DISTRESS. FALL PRECAUTIONS IN PLACE. WILL CONTINUE TO MONITOR.
[2018-05-30 04:30] VITALS: BP_SYST 177
[2018-05-30] MEDS: cloNIDine HCL 0.1 MG TABLET PO PRN (04:30)
--- NOTE | 2018-05-30 04:35 | NUR ---
HIGH BP BLOOD PRESSURE READING OF 177/85. ADMINISTERED PRN BP MEDICATION PER ORDERS. WILL CONTINUE TO MONITOR.
--- NOTE | 2018-05-30 05:11 | NUR ---
CONSULTATION PAGED/CALLED Reason for Consultation: ASHLIE JEREZ Person Who was Notified: [employer]REE [employer] Consulting Physician: Geography Faculty Member Specialty:SPEECH THERAPY Ordering Physician: ARMINDA
--- NOTE | 2018-05-30 05:35 | NUR ---
BP REASSESS BP: 104/58
[2018-05-30 05:40] VITALS: BP_SYST 104
--- NOTE | 2018-05-30 06:00 | NUR ---
BLOOD SUGAR BLOOD SUGAR READING OF 147. NO COVERAGE PER SLIDING SCALE. PT RESTING. WILL CONTINUE TO MONITOR.
--- NOTE | 2018-05-30 06:48 | NUR ---
CLOSING NOTE WILL ENDORSE CARE AND REPORT TO DAY SHIFT. PT SLEEPING IN BED. NO S/S OF DISTRESS OR DISCOMFORT. PT IN STABLE CONDITION. ALL NEEDS MET THROUGHOUT SHIFT. FALL AND SAFETY PRECAUTIONS MAINTAINED DURING SHIFT. BP MANAGED THROUGHOUT SHIFT. CALL LIGHT WITH PT. WILL CONTINUE TO MONITOR.
--- NOTE | 2018-05-30 07:59 | NUR ---
OPENING NOTE: RECEIVED REPORT FROM NIGHT NURSE. PATIENT IS SLEEPING COMFORTABLY IN BED. NO S/S OF DISTRESS OR SOB. VITAL SIGNS WNL. PATIENT ON ROOM AIR. SAFETY PRECAUTIONS IN PLACE. CALL LIGHT IN REACH, BED IN LOWEST POSITION, AND WILL CONTINUE TO MONITOR.
[2018-05-30 08:04] VITALS: BP_SYST 117
[2018-05-30] MEDS: NACL 0.9% 1,000 ML IV SCH ×2 (08:18→20:18)
[2018-05-30] MEDS: CARBIDOPA/LEVODOPA 10/100 MG TABLET PO SCH ×3 (08:25→20:19)
[2018-05-30] MEDS: cefTRIAXone 1 GM in D5W 50 ML IV SCH (08:25)
[2018-05-30] MEDS: ATORVASTATIN 10 MG TABLET PO SCH (08:25)
--- NOTE | 2018-05-30 08:25 | NUR ---
Nutrition Update Michele Scale 12 noted. Pt admitted for s/p fall, altered mental status. Diet: NPO BMI: 18 kg/m2 RD to follow per nutrition care standards.
[2018-05-30] MEDS: amLODIPine BESYLATE 10 MG TABLET PO SCH (08:26)
[2018-05-30] MEDS: MEGESTROL ACETATE 40 MG TABLET PO SCH (08:27)
[2018-05-30] MEDS: LOSARTAN POTASSIUM 50 MG TABLET (COZAAR) PO SCH (08:27)
[2018-05-30] MEDS: DOCUSATE SODIUM 100 MG CAPSULE PO SCH ×2 (08:29→20:18)
[2018-05-30] MEDS ORDERED: BENAZEPRIL HCL 20 MG TABLET (LOTENSIN) PO SCH (09:00)
[2018-05-30 09:07] LABS: ANION GAP 6 (5-15); CALCIUM 10.4 mg/dL (8.4-11.0); CHLORIDE 105 mmol/L (98-107); CREATININE 0.84 mg/dL (0.55-1.30); GLUCOSE 141 mg/dL (70-99); POTASSIUM 3.6 mmol/L (3.5-5.1); SODIUM SERUM 138 mmol/L (136-145); THYROID STIMULATING HORMONE 1.08 uIu/mL (0.34-4.82); UREA NITROGEN, BLOOD 18 mg/dL (8-21)
--- NOTE | 2018-05-30 10:38 | NUR ---
RN ROUNDS PATIENT IS SLEEPING COMFORTABLY IN BED. NO S/S OF DISTRESS OR SOB. PATIENTS SON WAS VISITING. DR. HILLIARD MADE ROUNDS. IV IS PATENT AND INFUSING. NO NEEDS AT THIS MOMENT. CALL LIGHT IN REACH, BED IN LOWEST POSITION, AND WILL CONTINUE TO MONITOR.
[2018-05-30 12:02] VITALS: BP_SYST 106
--- NOTE | 2018-05-30 12:18 | NUR ---
S.T. SWALLOW EVAL COMPLETED. DTR PRESENT. PT PRESENTS W/ PT PRESENTS W/ MOD ORAL AND ML-MOD PHARYNGEAL DYSPHAGIA W/ DELAYED BOLUS TRANSFER, ML PROLONGED MASTICATION, AND DELAYED SWALLOW AT TIMES. COUGHING X 1 ON NECTAR THICK LIQUIDS; BUT NO COUGHING ON SUBSEQUENT THICK AND THIN LIQUID SWALLOWS REC: MECH SOFT FINELY CHOPPED DIET. THIN LIQUIDS OK. ENCOURAGED DAUGHTER TO HAVE PT'S HOME CAREGIVER TO COME DURING MEAL TIMES. SHE VERBALIZED AGREEMENT. NURSE DEJON NOTIFIED. G8996 CK G8997 CK G8998 CK NOMS LEVEL 4.
--- NOTE | 2018-05-30 12:55 | NUR ---
RN ROUNDS PATIENT IS RESTING COMFORTABLY IN BED. NO S/S OF DISTRESS OR SOB. PATIENT IS AWAKE BUT NOT ALERT. DAUGHTER AT BEDSIDE. SWALLOW EVALUATION COMPLETE. DIET ORDER CHANGED. CALL LIGHT IN REACH, BED IN LOWEST POSITION, AND WILL CONTINUE TO MONITOR.
--- NOTE | 2018-05-30 14:10 | NUR ---
Wound Evaluation: Late note for 1410 secondary to patient care. Wound Consult ordered for Low Michele Score. Patient evaluated for a low Michele score of 12. Patient was awake, alert, confused, and received in a [place] Bed with an Atmos-Air 9000 mattress. Patient needs to be turned in bed. Skin is fair. Recommend reposition patient side to side only every 2 hours with pillow support. Elevate, off-load and float bilateral heels with pillows. Offload pressure areas with pillows for pressure re-distribution. Perform skin care and monitor skin integrity Q shift. Use moisture barrier cream on moisture susceptible areas QID and PRN for soiling. Place patient on a low air-loss mattress. Skin assessment: 1. Buttocks: Blanchable erythema from IAD, present on admission. Recommend: Cleanse involved areas with mild soap and water. Pat dry. Apply Hydraguard moisture barrier cream to involved areas. Perform site care 4 times a day, and as needed for soiling. 2. Bilateral heels: Dry flaky skin, with blanchable erythema, present on admission. Recommend: Elevate, offload and float bilateral heels with one pillow lengthwise under each extremity at all times. Will continue to follow as a Michele.
--- NOTE | 2018-05-30 14:48 | NUR ---
RN ROUNDS PATIENT IS RESTING COMFORTABLY IN BED. NO S/S OF DISTRESS OR SOB. NO NEEDS EXPRESSED AT THIS TIME. CALL LIGHT IN REACH, BED IN LOWEST POSITION, AND WILL CONTINUE TO MONITOR.
[2018-05-30 16:04] VITALS: BP_SYST 102
--- NOTE | 2018-05-30 16:30 | NUR ---
RN ROUNDS PATIENT IS SLEEPING COMFORTABLY IN BED. NO S/S OF DISTRESS OR SOB. NO NEEDS AT THIS TIME. CALL LIGHT IN REACH, BED IN LOWEST POSITION, AND WILL CONTINUE TO MONITOR.
[2018-05-30] MEDS: INSULIN ASPART 100 UNITS/ML, 10 ML VIAL (NovoLOG) SUBCUT PRN ×2 (16:55→20:32)
--- NOTE | 2018-05-30 18:20 | NUR ---
CLOSING NOTE: PATIENT IS RESTING COMFORTABLY IN BED. SON IS AT BEDSIDE. PATIENT IN STABLE CONDITION. NO S/S OF DISTRESS OR SOB. SON IS FEEDING DINNER. BLOOD PRESSURE CONTROLLED DURING SHIFT. ALL NEEDS MET. IV IS PATENT AND INFUSING. CALL LIGHT IN REACH, BED IN LOWEST POSITION, AND WILL GIVE REPORT TO NIGHT NURSE.
--- NOTE | 2018-05-30 19:05 | NUR ---
OPENING NOTE RECEIVED PT ENDORSEMENT REPORT FROM DAY SHIFT NURSE DEJON AT BEDSIDE. PT IS AOX2, PT RESTING COMFORTABLY IN BED WITH EYES OPEN. PT'S DTR AT BEDSIDE. PT'S CHEST RISE EVEN AND UNLABORED. NO COMPLAINTS OF PAIN AT THIS TIME. NO DISTRESS NOTED. NO RESPIRATORY DISTRESS NOTED.PT IS ON RA. PT'S IV ON LEFT FA 22G. PT ORIENTED TO HOSPITAL ROOM, PT INSTRUCTED HOW TO USE CALL LIGHT AND ROOM PHONE, PT VERBALIZED UNDERSTANDING. PT AWARE TO CALL FOR ASSISTANCE. PT INSTRUCTED ON PT SAFETY, PT VERBALIZED UNDERSTANDING. SAFETY MEASURES IN PLACE, CALL LIGHT AND ROOM PHONE WITHIN REACH, BED BRAKES LOCKED, BED ALARM ON, BED RAILS UP X2, BED IN LOWEST POSITION, BEDSIDE TABLE WITHIN REACH. NO NEEDS AT THIS TIME, WILL CONTINUE TO MONITOR PT AND CONTINUE POC.
[2018-05-30 19:30] VITALS: BP_SYST 140
--- NOTE | 2018-05-30 19:30 | NUR ---
RN ROUNDS PT RESTING COMFORTABLY IN BED WITH EYES OPEN. PT'S CHEST RISE EVEN AND UNLABORED. NO COMPLAINTS OF PAIN AT THIS TIME. NO DISTRESS NOTED. NO RESPIRATORY DISTRESS NOTED. PT'S IVF INFUSING WELL. VITAL SIGNS WNL. NO OTHER NEEDS AT THIS TIME. SAFETY MEASURES IN PLACE, CALL LIGHT AND ROOM PHONE WITHIN REACH, BED BRAKES LOCKED, BED ALARM ON, BED RAILS UP X2, BED IN LOWEST POSITION, BEDSIDE TABLE WITHIN REACH. WILL CONTINUE TO MONITOR PT AND CONTINUE POC.
--- NOTE | 2018-05-30 20:28 | NUR ---
RN ROUNDS PT RESTING COMFORTABLY IN BED WITH EYES OPEN. PT'S CHEST RISE EVEN AND UNLABORED. NO COMPLAINTS OF PAIN AT THIS TIME. NO DISTRESS NOTED. NO RESPIRATORY DISTRESS NOTED. IVF INFUSING WELL. SCHEDULED MEDICATIONS ADMINISTERED ORDERED, PT TOLERATED MEDICATIONS WELL. BS 205, 4 UN OF NOVOLOG ADMINISTERED PER SLIDING SCALE PROTOCOL. NO OTHER NEEDS AT THIS TIME. SAFETY MEASURES IN PLACE. WILL CONTINUE TO MONITOR PT AND CONTINUE POC.
--- NOTE | 2018-05-30 22:35 | NUR ---
RN ROUNDS PT RESTING COMFORTABLY IN BED WITH EYES OPEN. PT'S CHEST RISE EVEN AND UNLABORED. NO COMPLAINTS OF PAIN AT THIS TIME. NO DISTRESS NOTED. NO RESPIRATORY DISTRESS NOTED. PT'S IVF INFUSING WELL. NO NEEDS AT THIS TIME. SAFETY MEASURES IN PLACE, CALL LIGHT AND ROOM PHONE WITHIN REACH, BED BRAKES LOCKED, BED ALARM ON, BED RAILS UP X2, BED IN LOWEST POSITION, BEDSIDE TABLE WITHIN REACH. WILL CONTINUE TO MONITOR PT AND CONTINUE POC.
--- NOTE | 2018-05-31 00:16 | NUR ---
RN ROUNDS PT RESTING COMFORTABLY IN BED WITH EYES CLOSED. PT'S CHEST RISE EVEN AND UNLABORED. NO DISTRESS NOTED. NO RESPIRATORY DISTRESS NOTED. NO S/S OF PAIN NOTED. SAFETY MEASURES IN PLACE, CALL LIGHT AND ROOM PHONE WITHIN REACH, BED BRAKES LOCKED, BED ALARM ON, BED RAILS UP X2, BED IN LOWEST POSITION, BEDSIDE TABLE WITHIN REACH. NO NEEDS AT THIS TIME, WILL CONTINUE TO MONITOR PT AND CONTINUE POC.
[2018-05-31 00:47] VITALS: BP_SYST 158
--- NOTE | 2018-05-31 02:32 | NUR ---
RN ROUNDS PT RESTING COMFORTABLY IN BED WITH EYES CLOSED. PT'S CHEST RISE EVEN AND UNLABORED. NO DISTRESS NOTED. NO RESPIRATORY DISTRESS NOTED. NO NEEDS AT THIS TIME. SAFETY MEASURES IN PLACE. WILL CONTINUE TO MONITOR PT AND CONTINUE POC.
--- NOTE | 2018-05-31 04:30 | NUR ---
RN ROUNDS PT RESTING COMFORTABLY IN BED WITH EYES CLOSED. PT'S CHEST RISE EVEN AND UNLABORED. NO DISTRESS NOTED. NO RESPIRATORY DISTRESS NOTED. IVF INFUSING WELL. SAFETY MEASURES IN PLACE. WILL CONTINUE TO MONITOR PT AND CONTINUE POC.
--- NOTE | 2018-05-31 06:07 | NUR ---
BS 111, NO COVERAGE
--- NOTE | 2018-05-31 06:55 | NUR ---
CLOSING NOTE WILL ENDORSE PT REPORT TO DAY SHIFT NURSE AT BEDSIDE. PT IS AOX2, PT RESTING COMFORTABLY IN BED WITH EYES CLOSED. PT'S CHEST RISE EVEN AND UNLABORED. NO COMPLAINTS OF PAIN THROUGHOUT THE SHIFT. NO DISTRESS NOTED, NO RESPIRATORY DISTRESS NOTED THROUGHOUT SHIFT. PT'S IV INFUSING WELL. ALL NEEDS MET THROUGHOUT SHIFT. ALL SCHEDULED MEDICATIONS ADMINISTERED SCHEDULED, PT TOLERATED WELL. PT ORIENTED TO HOSPITAL ROOM, PT INSTRUCTED HOW TO USE CALL LIGHT AND ROOM PHONE, PT VERBALIZED UNDERSTANDING. PT AWARE TO CALL FOR ASSISTANCE. PT INSTRUCTED ON PT SAFETY, PT VERBALIZED UNDERSTANDING. SAFETY MEASURES IN PLACE, CALL LIGHT AND ROOM PHONE WITHIN REACH, BED BRAKES LOCKED, BED ALARM ON, BED RAILS UP X2, BED IN LOWEST POSITION, BEDSIDE TABLE WITHIN REACH. WILL CONTINUE TO MONITOR PT AND CONTINUE POC.
[2018-05-31 08:00] VITALS: BP_SYST 184
--- NOTE | 2018-05-31 08:00 | NUR ---
initial notes rec patient awake alert with periods of forgetfulness. ivl infusing well on the l forearm. no infiltration noted. resp easy and unlabored. no sob noted. bed in low position and side rails up and locked. call light wihtn reached and knows when to call for assistance.
[2018-05-31] MEDS: cefTRIAXone 1 GM in D5W 50 ML IV SCH (09:54)
--- NOTE | 2018-05-31 10:30 | NUR ---
rounds due meds given and tika well. went back to sellep after. no osb noted. call light within reached. family at bedside.
[2018-05-31] MEDS: DOCUSATE SODIUM 100 MG CAPSULE PO SCH ×2 (10:40→21:14)
[2018-05-31] MEDS: ATORVASTATIN 10 MG TABLET PO SCH (10:40)
[2018-05-31] MEDS: LOSARTAN POTASSIUM 50 MG TABLET (COZAAR) PO SCH (10:40)
[2018-05-31] MEDS: amLODIPine BESYLATE 10 MG TABLET PO SCH (10:41)
[2018-05-31] MEDS: MEGESTROL ACETATE 40 MG TABLET PO SCH (10:41)
[2018-05-31] MEDS: CARBIDOPA/LEVODOPA 10/100 MG TABLET PO SCH ×3 (10:44→21:14)
[2018-05-31] MEDS ORDERED: METOPROLOL TARTRATE 25 MG TABLET PO ONE (12:15)
[2018-05-31 12:25] VITALS: BP_SYST 166
--- NOTE | 2018-05-31 12:30 | NUR ---
rounds no hypo hyperglycemic reaction noted. stable. son at bedside to feed patient for lunch.
--- NOTE | 2018-05-31 14:00 | NUR ---
rounds seen by dr mcconnell and also speak with pt's son atv bedside re plan of care. pt is confused and reorient at intervals. sleeps at intervals.
--- NOTE | 2018-05-31 14:24 | NUR ---
Dietitian Recommendations * Recommend CCHO, 2 gm Na, mechanical soft, finely chopped diet, Glucerna TID (oral supplement provides an additional 660 kcal/day and 30 gm protein/day) LP, RD Please refer to Nutrition Assessment for details.
[2018-05-31] MEDS: INSULIN ASPART 100 UNITS/ML, 10 ML VIAL (NovoLOG) SUBCUT PRN ×2 (15:48→21:30)
--- NOTE | 2018-05-31 16:00 | NUR ---
rounds iv infiltrated and restarted by javon on the r forearm. sleeps at intervals. no sob noted. bed alarm is on and pt is close to the nurses station.
[2018-05-31 16:45] VITALS: BP_SYST 150
[2018-05-31 18:30] VITALS: BP_SYST 161
--- NOTE | 2018-05-31 18:30 | NUR ---
closing notes son at bedside and assisting patient with her dinner tray. no hypo hyperglycemic reaction noted. no sob noted. bed in low position and side rails up and locked. call light within reached. stable and needs attended.
--- NOTE | 2018-05-31 18:30 | NUR ---
OPENING NOTE RECEIVED PT ENDORSEMENT REPORT FROM DAY SHIFT NURSE ERIC AT BEDSIDE. PT'S SON AT BEDSIDE. PT IS AOX1, PT RESTING COMFORTABLY IN BED WITH EYES OPEN. PT'S CHEST RISE EVEN AND UNLABORED. NO COMPLAINTS OF PAIN AT THIS TIME. NO DISTRESS NOTED. NO RESPIRATORY DISTRESS NOTED. PT IS ON RA. PT'S IV ON LEFT FA 20G. PT ORIENTED TO HOSPITAL ROOM, PT INSTRUCTED HOW TO USE CALL LIGHT AND ROOM PHONE, PT VERBALIZED UNDERSTANDING. PT AWARE TO CALL FOR ASSISTANCE. PT INSTRUCTED ON PT SAFETY, PT VERBALIZED UNDERSTANDING. SAFETY MEASURES IN PLACE, CALL LIGHT AND ROOM PHONE WITHIN REACH, BED BRAKES LOCKED, BED ALARM ON, BED RAILS UP X2, BED IN LOWEST POSITION, BEDSIDE TABLE WITHIN REACH. NO NEEDS AT THIS TIME, WILL CONTINUE TO MONITOR PT AND CONTINUE POC.
--- NOTE | 2018-05-31 19:15 | NUR ---
RN ROUNDS PT RESTING COMFORTABLY IN BED WITH EYES OPEN. SON AT BEDSIDE. PT'S CHEST RISE EVEN AND UNLABORED. NO COMPLAINTS OF PAIN AT THIS TIME. NO DISTRESS NOTED. NO RESPIRATORY DISTRESS NOTED. PT'S IVF INFUSING WELL. VITAL SIGNS WNL. NO OTHER NEEDS AT THIS TIME. SAFETY MEASURES IN PLACE, CALL LIGHT AND ROOM PHONE WITHIN REACH, BED BRAKES LOCKED, BED ALARM ON, BED RAILS UP X2, BED IN LOWEST POSITION, BEDSIDE TABLE WITHIN REACH. WILL CONTINUE TO MONITOR PT AND CONTINUE POC.
[2018-05-31] MEDS: METOPROLOL TARTRATE 25 MG TABLET PO SCH (21:14)
--- NOTE | 2018-05-31 21:27 | NUR ---
RN ROUNDS PT RESTING COMFORTABLY IN BED WITH EYES OPEN. PT'S CHEST RISE EVEN AND UNLABORED. NO COMPLAINTS OF PAIN AT THIS TIME. NO DISTRESS NOTED. NO RESPIRATORY DISTRESS NOTED. IVF INFUSING WELL. SCHEDULED MEDICATIONS ADMINISTERED ORDERED, PT TOLERATED MEDICATIONS WELL. BS 188, 2 UN OF NOVOLOG ADMINISTERED PER SLIDING SCALE PROTOCOL. NO OTHER NEEDS AT THIS TIME. SAFETY MEASURES IN PLACE. WILL CONTINUE TO MONITOR PT AND CONTINUE POC.
--- NOTE | 2018-05-31 23:40 | NUR ---
RN ROUNDS PT RESTING COMFORTABLY IN BED WITH EYES OPEN, WATCHING TELEVISION. PT'S CHEST RISE EVEN AND UNLABORED. NO COMPLAINTS OF PAIN AT THIS TIME. NO DISTRESS NOTED. NO RESPIRATORY DISTRESS NOTED. PT'S IVF INFUSING WELL. NO NEEDS AT THIS TIME. SAFETY MEASURES IN PLACE, CALL LIGHT AND ROOM PHONE WITHIN REACH, BED BRAKES LOCKED, BED ALARM ON, BED RAILS UP X2, BED IN LOWEST POSITION, BEDSIDE TABLE WITHIN REACH. WILL CONTINUE TO MONITOR PT AND CONTINUE POC.
[2018-06-01 00:16] VITALS: BP_SYST 166
--- NOTE | 2018-06-01 00:28 | NUR ---
RN ROUNDS PT RESTING COMFORTABLY IN BED WITH EYES OPEN WATCHING TELEVISION. PT'S CHEST RISE EVEN AND UNLABORED. NO COMPLAINTS OF PAIN AT THIS TIME. NO DISTRESS NOTED. NO RESPIRATORY DISTRESS NOTED. PT'S IVF INFUSING WELL. NO NEEDS AT THIS TIME. SAFETY MEASURES IN PLACE, CALL LIGHT AND ROOM PHONE WITHIN REACH, BED BRAKES LOCKED, BED ALARM ON, BED RAILS UP X2, BED IN LOWEST POSITION, BEDSIDE TABLE WITHIN REACH. WILL CONTINUE TO MONITOR PT AND CONTINUE POC.
[2018-06-01] MEDS: cloNIDine HCL 0.1 MG TABLET PO PRN ×2 (01:26→12:52)
--- NOTE | 2018-06-01 02:43 | NUR ---
RN ROUNDS PT RESTING COMFORTABLY IN BED WITH EYES CLOSED. PT'S CHEST RISE EVEN AND UNLABORED. NO S/S OF PAIN AT THIS TIME. NO DISTRESS NOTED. NO RESPIRATORY DISTRESS NOTED. NO OTHER NEEDS AT THIS TIME. SAFETY MEASURES IN PLACE. WILL CONTINUE TO MONITOR PT AND CONTINUE POC.
[2018-06-01 04:06] VITALS: BP_SYST 131
--- NOTE | 2018-06-01 04:44 | NUR ---
RN ROUNDS PT RESTING COMFORTABLY IN BED WITH EYES CLOSED. PT'S CHEST RISE EVEN AND UNLABORED. NO S/S OF PAIN AT THIS TIME. NO DISTRESS NOTED. NO RESPIRATORY DISTRESS NOTED. SAFETY MEASURES IN PLACE, CALL LIGHT AND ROOM PHONE WITHIN REACH, BED BRAKES LOCKED, BED ALARM ON, BED RAILS UP X2, BED IN LOWEST POSITION, BEDSIDE TABLE WITHIN REACH. WILL CONTINUE TO MONITOR PT AND CONTINUE POC.
--- NOTE | 2018-06-01 05:45 | NUR ---
RN ROUNDS PT RESTING COMFORTABLY IN BED WITH EYES CLOSED. PT'S CHEST RISE EVEN AND UNLABORED. NO DISTRESS NOTED. NO RESPIRATORY DISTRESS NOTED. SAFETY MEASURES IN PLACE, CALL LIGHT AND ROOM PHONE WITHIN REACH, BED BRAKES LOCKED, BED ALARM ON, BED RAILS UP X2, BED IN LOWEST POSITION, BEDSIDE TABLE WITHIN REACH. WILL CONTINUE TO MONITOR PT AND CONTINUE POC.
--- NOTE | 2018-06-01 06:22 | NUR ---
RN ROUNDS PT RESTING COMFORTABLY IN BED WITH EYES OPEN. PT'S CHEST RISE EVEN AND UNLABORED. NO COMPLAINTS OF PAIN AT THIS TIME. NO DISTRESS NOTED. NO RESPIRATORY DISTRESS NOTED. BS 125, NO COVERAGE NEEDED. SAFETY MEASURES IN PLACE, CALL LIGHT AND ROOM PHONE WITHIN REACH, BED BRAKES LOCKED, BED ALARM ON, BED RAILS UP X2, BED IN LOWEST POSITION, BEDSIDE TABLE WITHIN REACH. NO NEEDS AT THIS TIME, WILL CONTINUE TO MONITOR PT AND CONTINUE POC.
--- NOTE | 2018-06-01 06:23 | NUR ---
BS 125, NO INSULIN COVERAGE
--- NOTE | 2018-06-01 08:00 | NUR ---
initial notes rec patient asleep but arousable to stimuli and confused. hob slightly elevated and refused to eat breakfast at this time. ivl on the l arm intact. no infiltration noted. resp easy and unlabored. no acute distress noted. bed in low position and side rails up and locked. call light within reached and side rails up and locked. call light within reached, patient close to the nurses station bed alarm is on.
[2018-06-01] MEDS ORDERED: metFORMIN HCL 500 MG TABLET PO SCH (09:00)
--- NOTE | 2018-06-01 09:30 | NUR ---
rounds son came and assisted patient to eat breakfast. sleeps at intervals. no sob noted. p. t came and hardly tika ambulation .just sit at the edge of the bed.
[2018-06-01] MEDS: cefTRIAXone 1 GM in D5W 50 ML IV SCH (09:44)
[2018-06-01] MEDS: DOCUSATE SODIUM 100 MG CAPSULE PO SCH (09:45)
[2018-06-01] MEDS: LOSARTAN POTASSIUM 50 MG TABLET (COZAAR) PO SCH (09:46)
[2018-06-01] MEDS: ATORVASTATIN 10 MG TABLET PO SCH (09:47)
[2018-06-01] MEDS: MEGESTROL ACETATE 40 MG TABLET PO SCH (09:47)
[2018-06-01] MEDS: amLODIPine BESYLATE 10 MG TABLET PO SCH (09:47)
[2018-06-01] MEDS: METOPROLOL TARTRATE 25 MG TABLET PO SCH (09:48)
[2018-06-01] MEDS: CARBIDOPA/LEVODOPA 10/100 MG TABLET PO SCH ×2 (09:48→17:57)
[2018-06-01 12:02] VITALS: BP_SYST 174
--- NOTE | 2018-06-01 12:30 | NUR ---
rounds bs was done and no hypo hyperglycemic reaction noted. call light within reached. pt's sleeps at intervals.
[2018-06-01] MEDS: INSULIN ASPART 100 UNITS/ML, 10 ML VIAL (NovoLOG) SUBCUT PRN (12:43)
--- NOTE | 2018-06-01 14:00 | NUR ---
rounds asleep at this time. denies pain. son at bedside and waiting for dr mcconnell . no acute distress noted.
--- NOTE | 2018-06-01 14:43 | NUR ---
rounds seen by dr gaitan at bedside and will d/c patient. result of ct chest and labs were discussed by dr gaitan at bedside. instructed re appt with pmd by dr gaitan. no sob noted.
--- NOTE | 2018-06-01 15:32 | NUR ---
Discharge Planning: DCP faxed referral to Cherelle at [facility] (f [phone] p [phone]) to resume care.
[2018-06-01 16:02] VITALS: BP_SYST 90
--- NOTE | 2018-06-01 17:30 | NUR ---
rounds sleeps at intervals. resting comfortably.
[2018-06-01 18:24] VITALS: BP_SYST 138
[2018-06-01] MEDS ORDERED: AMOX-520 PO (18:37)
--- NOTE | 2018-06-01 18:50 | NUR ---
closing notes pt was discharged via wheelchair.discussed with son claudio re appt to primary md dr leonardo crane, writted presc by dr mcconnell , and went over re med reconciliation. pt is stable , no sob noted. needs attended. ivl was removed and so with fall precuation bracelet and her id band.
== END 2018-06-01 18:55 | disposition home health service (06) | DRG 689 ==
LOC: SED 11:29 → STU 14:31
PROVIDERS: ADMIT Internal Medicine; ATTEND Internal Medicine
DX: N39.0 Urinary tract infection, site not specified (principal); G93.41 Metabolic encephalopathy; I67.4 Hypertensive encephalopathy; E83.52 Hypercalcemia; E11.9 Type 2 diabetes mellitus without complications; E78.5 Hyperlipidemia, unspecified; I10 Essential (primary) hypertension; Z90.49 Acquired absence of other specified parts of digestive tract; Z86.73 Personal history of transient ischemic attack (TIA), and cerebral infarction without residual deficits; J44.9 Chronic obstructive pulmonary disease, unspecified; I16.0 Hypertensive urgency; G20 Parkinson's disease; F02.80 Dementia in other diseases classified elsewhere, unspecified severity, without behavioral disturbance, psychotic disturbance, mood disturbance, and anxiety
CPT/HCPCS: 36415; 70450-TC; 71045; 72100-TC; 80048; 80053; 81000-TC; 82607; 82962; 83605; 83690-TC; 83970; 84100-TC; 84443-TC; 84484; 85025; 85610-TC; 85730-TC; 87040-TC; 87086; 87186-TC; 92610-GN; 93005; 96365; 96375; 96376; 97110-GP; 97530-GP; 99291; J0696; J1815; J3490; J7030; J7060

== ENCOUNTER 2020-04-04 21:26 | Inpatient (IN) | payer OTHER, SELFPAY ==
[~2020-04-04] VITALS: Ht 160 cm; Wt 43.5 kg
[~2020-04-04 21:26] MED LIST changes: -AMLO5TAB4 PO; +AMOX-520 PO; -BENA20TA75 PO; -CIPR-211 PO; +IRBE300T40 PO; -LACT1CAP57 PO; +LACT1CAP61 PO; +MEGE40TA PO; +NOR10 PO
[2020-04-04 21:31] VITALS: BP_SYST 126
[2020-04-04] MEDS ORDERED: METO-540 PO (22:06)
[2020-04-04] MEDS ORDERED: CARB1TAB10 PO (22:06)
[2020-04-04] MEDS ORDERED: RIVA10TA PO (22:06)
[2020-04-04 22:10] LABS: BASOPHILS # (AUTO) 0.1 K/uL (0.0-0.2); BASOPHILS % (AUTO) 0.4 % (0.0-2.0); EOSINOPHILS # (AUTO) 0.1 K/uL (0.0-0.4); EOSINOPHILS % (AUTO) 1.1 % (0.0-4.0); HEMATOCRIT 32.2 % (36-48); HEMOGLOBIN 10.3 g/dL (12.0-16.0); LYMPHOCYTES # (AUTO) 1.6 K/uL (1.0-5.5); LYMPHOCYTES % (AUTO) 12.4 % (20.5-51.5); MEAN CORPUSCULAR HEMOGLOBIN 28 pg (27-31); MEAN CORPUSCULAR HGB CONC 32 % (32-36); MEAN CORPUSCULAR VOLUME 88 fL (79.0-98.0); MONOCYTES # (AUTO) 0.6 K/uL (0.0-1.0); MONOCYTES % (AUTO) 4.5 % (1.7-9.3); NEUTROPHILS # (AUTO) 10.3 K/uL (1.8-7.7); NEUTROPHILS % (AUTO) 81.6 % (40.0-70.0); PLATELET COUNT (AUTO) 275 K/uL (130-430); RED BLOOD CELL COUNT(AUTO) 3.65 MIL/uL (4.2-6.2); RED CELL DISTRIBUTION WIDTH 14.8 % (9.0-15.0); WHITE BLOOD COUNT (AUTO) 12.6 K/uL (4.8-10.8)
[2020-04-04 22:20] LABS: ANION GAP 10 (5-15); CHLORIDE 105 mmol/L (98-107); CREATININE 1.26 mg/dL (0.55-1.30); GLUCOSE 124 mg/dL (70-99); POTASSIUM 4.7 mmol/L (3.5-5.1); SODIUM SERUM 140 mmol/L (136-145); UREA NITROGEN, BLOOD 52 mg/dL (8-21)
[2020-04-04 22:21] LABS: INR 1.3 (0.8-1.2); PROTHROMBIN TIME 12.5 SECS (9.5-12.5)
[2020-04-04 22:23] LABS: CALCIUM 12.5 mg/dL (8.4-11.0)
[2020-04-04 22:25] LABS: ALANINE AMINOTRANSFERASE 21 U/L (12-78); ALBUMIN 2.8 g/dL (3.4-4.8); ASPARTATE AMINOTRANSFERASE 14 U/L (10-37); TOTAL BILIRUBIN 0.5 mg/dL (0.0-1.0)
[2020-04-04 22:26] LABS: ALCOHOL, BLOOD < 3 mg/dL (<10)
[2020-04-04] MEDS ORDERED: NACL 0.9% 1,000 ML IV ONE (22:30)
[2020-04-04 22:47] LABS: BILIRUBIN,URINE NEGATIVE (NEGATIVE); BLOOD, URINE 3+ (NEGATIVE); CLARITY/URINE TURBID (CLEAR); COLOR,URINE YELLOW (YELLOW); GLUCOSE,URINE NEGATIVE (NEGATIVE); KETONES,URINE NEGATIVE (NEGATIVE); LEUKOCYTE ESTERASE ,URINE 3+ (NEGATIVE); NITRITE, URINE NEGATIVE (NEGATIVE); PROTEIN URINE 2+ (NEGATIVE); UROBILINOGEN,URINE 0.2 (0.2-1.0)
[2020-04-04 22:55] LABS: FIBRINOGEN 553 mg/dL (200-400)
[2020-04-04 22:58] LABS: BARBITURATE, URINE NEGATIVE (NEG <=200); BENZODIAZEPINE, URINE NEGATIVE (NEG <=150); CANNABINOID, URINE NEGATIVE (NEG <=50); COCAINE, URINE NEGATIVE (NEG <=150); METHAMPHETAMINES SCREEN,URINE NEGATIVE (NEG <=500); OPIATE, URINE NEGATIVE (NEG <=100); PHENCYCLIDINE SCREEN,URINE NEGATIVE (NEG <=25); UR TRICYCLIC ANTIDEPRESSANTS NEGATIVE (NEG <=300); URINE AMPHETAMINE NEGATIVE (NEG <=500); URINE METHADONE NEGATIVE (NEG <=200); URINE OXYCODONE SCREEN NEGATIVE (NEG <=100); URINE PROPOXYPHENE SCREEN NEGATIVE (NEG <=300)
[2020-04-04 23:12] LABS: BACTERIA,URINE MANY /HPF (None Seen); RBC,URINE 20-50 /HPF (0-3); TRIPLE PHOSPHATE CRYSTAL,UR 0-10 /HPF (None Seen); WBC,URINE 50-80 /HPF (0-3)
[2020-04-05] MEDS ORDERED: cefTRIAXone 1 GM IVPB PREMIX 50 ML IV ONE (00:15)
[2020-04-05] MEDS ORDERED: IOHEXOL 350 mgI/mL, 150 ML INFUS..BTL IV ONE (00:31)
[2020-04-05] MEDS: NACL 0.9% 1,000 ML IV SCH ×3 (01:24→13:00)
[2020-04-05 02:03] VITALS: BP_SYST 141
[2020-04-05 08:00] VITALS: BP_SYST 133
[2020-04-05] MEDS ORDERED: ZOLPIDEM TARTRATE 5 MG TABLET PO PRN (08:30)
[2020-04-05] MEDS ORDERED: DOCUSATE SODIUM 100 MG/10 ML UDC PO PRN (08:30)
[2020-04-05] MEDS ORDERED: ACETAMINOPHEN 500 MG TABLET PO PRN (08:30)
[2020-04-05] MEDS ORDERED: DOCUSATE SODIUM 100 MG CAPSULE PO PRN (08:30)
[2020-04-05] MEDS ORDERED: HYDROcodone/ACETAMIN 7.5-325 MG TAB PO PRN (08:30)
[2020-04-05] MEDS ORDERED: ONDANSETRON HCL 4 MG/2 ML VIAL IVP PRN (08:30)
[2020-04-05 08:34] LABS: BASOPHILS # (AUTO) 0.1 K/uL (0.0-0.2); BASOPHILS % (AUTO) 0.8 % (0.0-2.0); EOSINOPHILS # (AUTO) 0.4 K/uL (0.0-0.4); EOSINOPHILS % (AUTO) 3.9 % (0.0-4.0); HEMATOCRIT 31.2 % (36-48); HEMOGLOBIN 10.2 g/dL (12.0-16.0); LYMPHOCYTES # (AUTO) 1.5 K/uL (1.0-5.5); LYMPHOCYTES % (AUTO) 15.2 % (20.5-51.5); MEAN CORPUSCULAR HEMOGLOBIN 29 pg (27-31); MEAN CORPUSCULAR HGB CONC 33 % (32-36); MEAN CORPUSCULAR VOLUME 89 fL (79.0-98.0); MONOCYTES # (AUTO) 0.4 K/uL (0.0-1.0); MONOCYTES % (AUTO) 4.4 % (1.7-9.3); NEUTROPHILS # (AUTO) 7.6 K/uL (1.8-7.7); NEUTROPHILS % (AUTO) 75.7 % (40.0-70.0); PLATELET COUNT (AUTO) 269 K/uL (130-430); RED BLOOD CELL COUNT(AUTO) 3.52 MIL/uL (4.2-6.2); RED CELL DISTRIBUTION WIDTH 14.9 % (9.0-15.0); WHITE BLOOD COUNT (AUTO) 10.1 K/uL (4.8-10.8)
[2020-04-05 08:40] LABS: ANION GAP 7 (5-15); CALCIUM 11.1 mg/dL (8.4-11.0); CHLORIDE 110 mmol/L (98-107); CREATININE 0.93 mg/dL (0.55-1.30); GLUCOSE 87 mg/dL (70-99); POTASSIUM 3.9 mmol/L (3.5-5.1); SODIUM SERUM 143 mmol/L (136-145); UREA NITROGEN, BLOOD 41 mg/dL (8-21)
[2020-04-05] MEDS: metFORMIN HCL 500 MG TABLET PO SCH (09:00)
[2020-04-05] MEDS: CARBIDOPA/LEVODOPA 25/100 MG TABLET PO SCH ×3 (09:00→20:29)
[2020-04-05] MEDS: amLODIPine BESYLATE 10 MG TABLET PO SCH (09:00)
[2020-04-05] MEDS: PANTOPRAZOLE SODIUM 40 MG TAB PO SCH ×2 (09:00→10:24)
[2020-04-05] MEDS: METOPROLOL SUCCINATE 50 MG TAB.SR.24H (TOPROL XL) PO SCH (09:00)
[2020-04-05] MEDS: RIVAROXABAN 10 MG TABLET PO SCH (09:00)
[2020-04-05 10:41] LABS: FREE T4 (FREE THYROXINE) 1.1 ng/dL (0.6-1.6); PHOSPHORUS 2.6 mg/dL (2.7-4.5); THYROID STIMULATING HORMONE 0.5 uIu/mL (0.34-4.82)
[2020-04-05 11:33] VITALS: BP_SYST 141
[2020-04-05] MEDS ORDERED: D5W 1,000 ML IV PRN (11:45)
[2020-04-05] MEDS ORDERED: DEXTROSE 50% JECT 50 ML DISP.SYRIN IVP PRN (11:45)
[2020-04-05] MEDS ORDERED: GLUCOSE 15 GM GEL (in 37.5 GM TUBE) PO PRN (11:45)
[2020-04-05] MEDS: NAPH,MB-DB/K PH,MBDB 250 MG TAB PO SCH ×3 (12:30→20:29)
[2020-04-05] MEDS ORDERED: CALCITONIN SALMON,SYNTHETIC 200 UNITS/ML VIAL IM ONE (13:00)
[2020-04-05 16:00] VITALS: BP_SYST 140
[2020-04-05 20:25] VITALS: BP_SYST 142
[2020-04-05] MEDS ORDERED: CALCITONIN SALMON,SYNTHETIC 200 UNITS/ML VIAL IM SCH (21:00)
[2020-04-05] MEDS: cefTRIAXone 1 GM in D5W 50 ML IV SCH (23:38)
[2020-04-06 00:10] VITALS: BP_SYST 130
[2020-04-06] MEDS: NACL 0.9% 1,000 ML IV SCH ×2 (01:09→18:18)
[2020-04-06 08:00] VITALS: BP_SYST 144
[2020-04-06] MEDS: metFORMIN HCL 500 MG TABLET PO SCH (09:00)
[2020-04-06] MEDS: METOPROLOL SUCCINATE 50 MG TAB.SR.24H (TOPROL XL) PO SCH (09:00)
[2020-04-06] MEDS: CARBIDOPA/LEVODOPA 25/100 MG TABLET PO SCH ×3 (09:00→22:26)
[2020-04-06] MEDS: RIVAROXABAN 10 MG TABLET PO SCH (09:00)
[2020-04-06] MEDS: PANTOPRAZOLE SODIUM 40 MG TAB PO SCH (09:00)
[2020-04-06] MEDS: amLODIPine BESYLATE 10 MG TABLET PO SCH (09:00)
[2020-04-06 09:49] LABS: ANION GAP 7 (5-15); CALCIUM 10.4 mg/dL (8.4-11.0); CHLORIDE 109 mmol/L (98-107); CREATININE 0.68 mg/dL (0.55-1.30); GLUCOSE 107 mg/dL (70-99); SODIUM SERUM 142 mmol/L (136-145); UREA NITROGEN, BLOOD 19 mg/dL (8-21)
[2020-04-06 10:20] LABS: BASOPHILS # (AUTO) 0.1 K/uL (0.0-0.2); BASOPHILS % (AUTO) 0.9 % (0.0-2.0); EOSINOPHILS # (AUTO) 0.4 K/uL (0.0-0.4); EOSINOPHILS % (AUTO) 5.4 % (0.0-4.0); HEMATOCRIT 29.6 % (36-48); HEMOGLOBIN 9.9 g/dL (12.0-16.0); LYMPHOCYTES % (AUTO) 13.7 % (20.5-51.5); MEAN CORPUSCULAR HEMOGLOBIN 29 pg (27-31); MEAN CORPUSCULAR HGB CONC 33 % (32-36); MEAN CORPUSCULAR VOLUME 87 fL (79.0-98.0); MONOCYTES # (AUTO) 0.4 K/uL (0.0-1.0); MONOCYTES % (AUTO) 6.1 % (1.7-9.3); NEUTROPHILS # (AUTO) 5.3 K/uL (1.8-7.7); NEUTROPHILS % (AUTO) 73.9 % (40.0-70.0); PLATELET COUNT (AUTO) 264 K/uL (130-430); RED CELL DISTRIBUTION WIDTH 14.5 % (9.0-15.0); WHITE BLOOD COUNT (AUTO) 7.2 K/uL (4.8-10.8)
[2020-04-06] MEDS ORDERED: CALCITONIN SALMON,SYNTHETIC 200 UNITS/ML VIAL IM ONE (10:30)
[2020-04-06 11:33] VITALS: BP_SYST 145
[2020-04-06] MEDS: VANCOMYCIN HCL 750 MG in NS 250 ML IV SCH (14:04)
[2020-04-06 15:41] VITALS: BP_SYST 145
[2020-04-06] MEDS: INSULIN LISPRO SLIDING SCALE 100 UNITS/ML VIAL (humaLOG) SUBCUT PRN (18:13)
[2020-04-06 20:53] VITALS: BP_SYST 143
[2020-04-07 00:16] VITALS: BP_SYST 137
[2020-04-07] MEDS: cefTRIAXone 1 GM in D5W 50 ML IV SCH ×2 (00:45→23:48)
[2020-04-07 08:30] VITALS: BP_SYST 161
[2020-04-07] MEDS: PANTOPRAZOLE SODIUM 40 MG TAB PO SCH (09:49)
[2020-04-07] MEDS: CARBIDOPA/LEVODOPA 25/100 MG TABLET PO SCH ×3 (09:49→21:59)
[2020-04-07] MEDS: POTASSIUM CHLORIDE 20 MEQ TAB.PRT.SR PO PRN (09:50)
[2020-04-07] MEDS: amLODIPine BESYLATE 10 MG TABLET PO SCH (09:51)
[2020-04-07] MEDS: RIVAROXABAN 10 MG TABLET PO SCH (09:51)
[2020-04-07] MEDS: METOPROLOL SUCCINATE 50 MG TAB.SR.24H (TOPROL XL) PO SCH (09:52)
[2020-04-07] MEDS: metFORMIN HCL 500 MG TABLET PO SCH (09:52)
[2020-04-07 10:39] LABS: BASOPHILS % (AUTO) 0.6 % (0.0-2.0); EOSINOPHILS # (AUTO) 0.3 K/uL (0.0-0.4); EOSINOPHILS % (AUTO) 4.3 % (0.0-4.0); HEMATOCRIT 29.7 % (36-48); HEMOGLOBIN 9.7 g/dL (12.0-16.0); LYMPHOCYTES # (AUTO) 0.8 K/uL (1.0-5.5); LYMPHOCYTES % (AUTO) 11.6 % (20.5-51.5); MEAN CORPUSCULAR HEMOGLOBIN 29 pg (27-31); MEAN CORPUSCULAR HGB CONC 33 % (32-36); MEAN CORPUSCULAR VOLUME 88 fL (79.0-98.0); MONOCYTES # (AUTO) 0.4 K/uL (0.0-1.0); MONOCYTES % (AUTO) 5.9 % (1.7-9.3); NEUTROPHILS # (AUTO) 5.1 K/uL (1.8-7.7); NEUTROPHILS % (AUTO) 77.6 % (40.0-70.0); PLATELET COUNT (AUTO) 251 K/uL (130-430); RED BLOOD CELL COUNT(AUTO) 3.39 MIL/uL (4.2-6.2); RED CELL DISTRIBUTION WIDTH 14.5 % (9.0-15.0); WHITE BLOOD COUNT (AUTO) 6.6 K/uL (4.8-10.8)
[2020-04-07 10:52] LABS: ANION GAP 8 (5-15); CALCIUM 10.2 mg/dL (8.4-11.0); CHLORIDE 107 mmol/L (98-107); CREATININE 0.69 mg/dL (0.55-1.30); GLUCOSE 242 mg/dL (70-99); POTASSIUM 3.1 mmol/L (3.5-5.1); SODIUM SERUM 140 mmol/L (136-145); UREA NITROGEN, BLOOD 15 mg/dL (8-21)
[2020-04-07] MEDS: NACL 0.9% 1,000 ML IV SCH (12:24)
[2020-04-07 12:25] VITALS: BP_SYST 133
[2020-04-07] MEDS: INSULIN LISPRO SLIDING SCALE 100 UNITS/ML VIAL (humaLOG) SUBCUT PRN (12:29)
[2020-04-07 16:23] VITALS: BP_SYST 126
[2020-04-07 20:00] VITALS: BP_SYST 152
[2020-04-08] MEDS: VANCOMYCIN HCL 750 MG in NS 250 ML IV SCH (00:54)
[2020-04-08 01:43] VITALS: BP_SYST 134
[2020-04-08] MEDS: NACL 0.9% 1,000 ML IV SCH ×2 (04:32→18:27)
[2020-04-08] MEDS: METOPROLOL SUCCINATE 50 MG TAB.SR.24H (TOPROL XL) PO SCH (09:02)
[2020-04-08] MEDS: CARBIDOPA/LEVODOPA 25/100 MG TABLET PO SCH ×3 (09:02→21:00)
[2020-04-08] MEDS: metFORMIN HCL 500 MG TABLET PO SCH (09:03)
[2020-04-08] MEDS: PANTOPRAZOLE SODIUM 40 MG TAB PO SCH (09:03)
[2020-04-08] MEDS: amLODIPine BESYLATE 10 MG TABLET PO SCH (09:03)
[2020-04-08 09:05] LABS: BASOPHILS % (AUTO) 0.5 % (0.0-2.0); EOSINOPHILS # (AUTO) 0.3 K/uL (0.0-0.4); HEMATOCRIT 32.4 % (36-48); HEMOGLOBIN 10.7 g/dL (12.0-16.0); LYMPHOCYTES % (AUTO) 11.9 % (20.5-51.5); MEAN CORPUSCULAR HEMOGLOBIN 29 pg (27-31); MEAN CORPUSCULAR HGB CONC 33 % (32-36); MEAN CORPUSCULAR VOLUME 88 fL (79.0-98.0); MONOCYTES # (AUTO) 0.4 K/uL (0.0-1.0); MONOCYTES % (AUTO) 4.7 % (1.7-9.3); NEUTROPHILS # (AUTO) 6.6 K/uL (1.8-7.7); NEUTROPHILS % (AUTO) 78.9 % (40.0-70.0); PLATELET COUNT (AUTO) 227 K/uL (130-430); RED BLOOD CELL COUNT(AUTO) 3.67 MIL/uL (4.2-6.2); RED CELL DISTRIBUTION WIDTH 14.5 % (9.0-15.0); WHITE BLOOD COUNT (AUTO) 8.4 K/uL (4.8-10.8)
[2020-04-08] MEDS: RIVAROXABAN 10 MG TABLET PO SCH (09:05)
[2020-04-08 10:12] LABS: ANION GAP 12 (5-15); CALCIUM 10.1 mg/dL (8.4-11.0); CHLORIDE 104 mmol/L (98-107); CREATININE 0.75 mg/dL (0.55-1.30); GLUCOSE 244 mg/dL (70-99); POTASSIUM 3.6 mmol/L (3.5-5.1); SODIUM SERUM 138 mmol/L (136-145); UREA NITROGEN, BLOOD 12 mg/dL (8-21)
[2020-04-08 10:59] VITALS: BP_SYST 148
[2020-04-08 11:32] VITALS: BP_SYST 140
[2020-04-08] MEDS: INSULIN LISPRO SLIDING SCALE 100 UNITS/ML VIAL (humaLOG) SUBCUT PRN (12:23)
[2020-04-08 16:02] VITALS: BP_SYST 128
[2020-04-08 19:00] VITALS: BP_SYST 147
[2020-04-08 20:00] VITALS: BP_SYST 147
[2020-04-09] MEDS: cefTRIAXone 1 GM in D5W 50 ML IV SCH (00:15)
[2020-04-09 01:03] VITALS: BP_SYST 147
[2020-04-09 08:00] VITALS: BP_SYST 154
[2020-04-09] MEDS: metFORMIN HCL 500 MG TABLET PO SCH (08:16)
[2020-04-09] MEDS: PANTOPRAZOLE SODIUM 40 MG TAB PO SCH (08:16)
[2020-04-09] MEDS: amLODIPine BESYLATE 10 MG TABLET PO SCH (08:16)
[2020-04-09] MEDS: RIVAROXABAN 10 MG TABLET PO SCH (08:18)
[2020-04-09] MEDS: CARBIDOPA/LEVODOPA 25/100 MG TABLET PO SCH ×3 (08:19→21:48)
[2020-04-09] MEDS: METOPROLOL SUCCINATE 50 MG TAB.SR.24H (TOPROL XL) PO SCH (08:20)
[2020-04-09 09:31] LABS: BASOPHILS # (AUTO) 0.1 K/uL (0.0-0.2); BASOPHILS % (AUTO) 0.9 % (0.0-2.0); EOSINOPHILS # (AUTO) 0.3 K/uL (0.0-0.4); EOSINOPHILS % (AUTO) 3.8 % (0.0-4.0); HEMATOCRIT 32.8 % (36-48); HEMOGLOBIN 10.7 g/dL (12.0-16.0); LYMPHOCYTES % (AUTO) 13.6 % (20.5-51.5); MEAN CORPUSCULAR HEMOGLOBIN 29 pg (27-31); MEAN CORPUSCULAR HGB CONC 33 % (32-36); MEAN CORPUSCULAR VOLUME 88 fL (79.0-98.0); MONOCYTES # (AUTO) 0.4 K/uL (0.0-1.0); MONOCYTES % (AUTO) 4.9 % (1.7-9.3); NEUTROPHILS # (AUTO) 5.7 K/uL (1.8-7.7); NEUTROPHILS % (AUTO) 76.8 % (40.0-70.0); PLATELET COUNT (AUTO) 261 K/uL (130-430); RED BLOOD CELL COUNT(AUTO) 3.73 MIL/uL (4.2-6.2); RED CELL DISTRIBUTION WIDTH 14.5 % (9.0-15.0); WHITE BLOOD COUNT (AUTO) 7.4 K/uL (4.8-10.8)
[2020-04-09 09:44] LABS: ANION GAP 9 (5-15); CHLORIDE 104 mmol/L (98-107); CREATININE 0.68 mg/dL (0.55-1.30); GLUCOSE 148 mg/dL (70-99); POTASSIUM 3.4 mmol/L (3.5-5.1); SODIUM SERUM 137 mmol/L (136-145); UREA NITROGEN, BLOOD 12 mg/dL (8-21)
[2020-04-09] MEDS: NACL 0.9% 1,000 ML IV SCH (11:43)
[2020-04-09 12:01] VITALS: BP_SYST 135
[2020-04-09 15:42] VITALS: BP_SYST 144
[2020-04-09] MEDS ORDERED: cefTRIAXone 1 GM IVPB PREMIX 50 ML IV ONE (16:00)
[2020-04-09 16:29] VITALS: BP_SYST 140
[2020-04-09] MEDS: POTASSIUM CHLORIDE 20 MEQ TAB.PRT.SR PO PRN (17:11)
[2020-04-09 20:51] VITALS: BP_SYST 132
[2020-04-10] MEDS ORDERED: cefTRIAXone 1 GM in D5W 50 ML IV SCH (16:00)
== END 2020-04-09 22:20 | disposition home health service (06) | DRG 70 ==
LOC: SED 21:26 → STU 04-05 00:16
PROVIDERS: ADMIT Family Medicine; ATTEND Family Medicine
DX: G93.41 Metabolic encephalopathy (principal); E43 Unspecified severe protein-calorie malnutrition; N39.0 Urinary tract infection, site not specified; Z68.1 Body mass index [BMI] 19.9 or less, adult; G30.9 Alzheimer's disease, unspecified; F02.80 Dementia in other diseases classified elsewhere, unspecified severity, without behavioral disturbance, psychotic disturbance, mood disturbance, and anxiety; E78.2 Mixed hyperlipidemia; E83.52 Hypercalcemia; K76.0 Fatty (change of) liver, not elsewhere classified; E83.39 Other disorders of phosphorus metabolism; R16.0 Hepatomegaly, not elsewhere classified; I49.9 Cardiac arrhythmia, unspecified; Z20.828 Contact with and (suspected) exposure to other viral communicable diseases; G20 Parkinson's disease; E11.9 Type 2 diabetes mellitus without complications; R79.89 Other specified abnormal findings of blood chemistry; I10 Essential (primary) hypertension; B96.20 Unspecified Escherichia coli [E. coli] as the cause of diseases classified elsewhere; B96.1 Klebsiella pneumoniae [K. pneumoniae] as the cause of diseases classified elsewhere; Z79.899 Other long term (current) drug therapy; Z79.84 Long term (current) use of oral hypoglycemic drugs
CPT/HCPCS: 36415; 70450-TC; 71045; 71275; 80048; 80053; 80061; 80307; 81000-TC; 82150-TC; 82550-TC; 82962; 83036; 83605; 83690-TC; 83735-TC; 83880; 84100-TC; 84439; 84443-TC; 84484; 85025; 85379; 85384-TC; 85610-TC; 85730-TC; 87040-TC; 87086; 87186-TC; 92610-GN; 93005; 96361; 96365; 97110-GP; 97112-GP; 97116-GP; 97530-GP; 99285; G0378; G0482; J0630; J0696; J7030; J7042; J7050; J7060; Q9967; U0003-CS

== ENCOUNTER 2022-02-20 19:10 | Emergency (ER) | payer OTHER ==
[~2022-02-20] VITALS: Ht 157.5 cm; Wt 54.4 kg
[~2022-02-20 19:10] MED LIST changes: -AMOX-520 PO; +CARB1TAB10 PO; -CARB1TAB8 PO; -IRBE300T40 PO; -LACT1CAP61 PO; -LIP10 PO; -MEGE40TA PO; +METO-540 PO; +RIVA10TA PO
[2022-02-20 19:40] VITALS: BP_SYST 116
--- NOTE | 2022-02-20 19:40 | NUR ---
Patient to ER tent to [facility] for evaluation. report given to HARISH Dos Santos
--- NOTE | 2022-02-20 20:00 | NUR ---
Dr. Infante at bedside.
--- NOTE | 2022-02-20 20:10 | NUR ---
Pt came from home with c/o general weakness and COVID positive at home result. Pt is asleep but wakes to physical stimuli. She will not answer my question. Per daughter, pt has episodes of fatigue and increased sleepiness. Pt has history of dementia. Daughter at pt side.
[2022-02-20 20:59] LABS: BASOPHILS % (AUTO) 0.5 % (0.0-2.0); EOSINOPHILS % (AUTO) 0.5 % (0.0-4.0); HEMATOCRIT 28.2 % (36-48); HEMOGLOBIN 9.2 g/dL (12.0-16.0); LYMPHOCYTES # (AUTO) 0.3 K/uL (1.0-5.5); LYMPHOCYTES % (AUTO) 7.1 % (20.5-51.5); MEAN CORPUSCULAR HEMOGLOBIN 25 pg (27-31); MEAN CORPUSCULAR HGB CONC 33 % (32-36); MEAN CORPUSCULAR VOLUME 77 fL (79.0-98.0); MONOCYTES # (AUTO) 0.4 K/uL (0.0-1.0); MONOCYTES % (AUTO) 9.3 % (1.7-9.3); NEUTROPHILS # (AUTO) 3.7 K/uL (1.8-7.7); NEUTROPHILS % (AUTO) 82.6 % (40.0-70.0); PLATELET COUNT (AUTO) 242 K/uL (130-430); RED BLOOD CELL COUNT(AUTO) 3.67 MIL/uL (4.2-6.2); RED CELL DISTRIBUTION WIDTH 17.2 % (9.0-15.0); WHITE BLOOD COUNT (AUTO) 4.5 K/uL (4.8-10.8)
--- NOTE | 2022-02-20 21:00 | NUR ---
Pt moved to ER bed 08. Daughter at bedside.
[2022-02-20 21:13] LABS: ANION GAP 5 (5-15); CALCIUM 9.5 mg/dL (8.4-11.0); CHLORIDE 104 mmol/L (98-107); CREATININE 1.17 mg/dL (0.55-1.30); GLUCOSE 98 mg/dL (70-99); POTASSIUM 4.3 mmol/L (3.5-5.1); SODIUM SERUM 135 mmol/L (136-145); UREA NITROGEN, BLOOD 22 mg/dL (8-21)
[2022-02-20 21:16] LABS: INR 1.5 (0.8-1.2)
[2022-02-20 21:29] LABS: ALBUMIN 3.1 g/dL (3.4-4.8); ASPARTATE AMINOTRANSFERASE 11 U/L (10-37); C-REACTIVE PROTEIN QUANT 0.9 mg/dL (0-0.5); LACTATE DEHYDROGENASE 125 U/L (81-234); TOTAL BILIRUBIN 0.2 mg/dL (0.0-1.0)
[2022-02-20] MEDS ORDERED: BEBTELOVIMAB (EUA) 175 MG/2 ML VIAL IV ONE (21:45)
[2022-02-20 21:47] LABS: ALANINE AMINOTRANSFERASE 6 U/L (12-78); PROTHROMBIN TIME 15.5 SECS (9.5-12.5)
--- NOTE | 2022-02-20 22:20 | NUR ---
Pt not able to provide urine sample. Dr. Infante made aware.
--- NOTE | 2022-02-20 23:52 | NUR ---
Pt in bed resting with eyes closed. O2 at 96% on RA. VSS. Safety precautions are in place and pt connected to monitor.
[2022-02-21 00:51] VITALS: BP_SYST 131
--- NOTE | 2022-02-21 00:51 | NUR ---
Patient given written and verbal discharge instructions and verbalizes understanding. ER Dr. Infante discussed with patient the results and treatment provided. Patient in stable condition. ID arm band removed. IV catheter removed intact and dressing applied, no active bleeding. Patient educated on pain management and to follow up with PMD. Opportunity for questions provided and answered. Medication side effect fact sheet provided.
== END 2022-02-21 00:51 | disposition home or self-care (01) ==
LOC: SED 19:10
DX: U07.1 COVID-19 (principal); F03.90 Unspecified dementia, unspecified severity, without behavioral disturbance, psychotic disturbance, mood disturbance, and anxiety; E11.9 Type 2 diabetes mellitus without complications; I10 Essential (primary) hypertension; Z79.899 Other long term (current) drug therapy
CPT/HCPCS: 36415; 71045; 80053; 82550; 83605; 83615; 83880; 84484; 85025; 85379; 85384; 85610-TC; 85730-TC; 86140; 87040; 93005; 99285

== ENCOUNTER 2022-02-23 10:41 | Inpatient (IN) | payer OTHER ==
[~2022-02-23] VITALS: Ht 162.6 cm; Wt 47.6 kg
--- NOTE | 2022-02-23 10:52 | NUR ---
Pt BIBA coming from home due to c/o being more altered than usual. pt does respond to simple questions but very slow to resping. pt only answers to her name and how she is feeling but does not answer to other questions. Skin is intact. pt is A&Ox1. On arrival O2 saturation was at 77%. Placed pt on NC 6L and O2 saturation now at 96%. Other vitals stable. Pt is covid positive. NKA. Has hx of DM, Parkinsons, Dementia, and cardiac Disorders (HTN). Bed in lowest position.
[2022-02-23 10:53] VITALS: BP_SYST 131
--- NOTE | 2022-02-23 10:56 | NUR ---
X-Ray being done at bedside.
--- NOTE | 2022-02-23 10:59 | NUR ---
morgue technician at bedside.
[2022-02-23 11:19] LABS: BASOPHILS % (AUTO) 0.2 % (0.0-2.0); HEMATOCRIT 29.7 % (36-48); HEMOGLOBIN 9.6 g/dL (12.0-16.0); LYMPHOCYTES # (AUTO) 0.2 K/uL (1.0-5.5); LYMPHOCYTES % (AUTO) 8.3 % (20.5-51.5); MEAN CORPUSCULAR HEMOGLOBIN 25 pg (27-31); MEAN CORPUSCULAR HGB CONC 32 % (32-36); MEAN CORPUSCULAR VOLUME 77 fL (79.0-98.0); MONOCYTES # (AUTO) 0.1 K/uL (0.0-1.0); MONOCYTES % (AUTO) 3.3 % (1.7-9.3); NEUTROPHILS # (AUTO) 2.2 K/uL (1.8-7.7); NEUTROPHILS % (AUTO) 88.2 % (40.0-70.0); PLATELET COUNT (AUTO) 231 K/uL (130-430); RED BLOOD CELL COUNT(AUTO) 3.87 MIL/uL (4.2-6.2); RED CELL DISTRIBUTION WIDTH 17.8 % (9.0-15.0); WHITE BLOOD COUNT (AUTO) 2.5 K/uL (4.8-10.8)
--- NOTE | 2022-02-23 11:20 | NUR ---
EKG performed at by Victorina MOREIRA. Physician given copy of EKG for review.
--- NOTE | 2022-02-23 11:20 | NUR ---
ER at bedside examining patient.
--- NOTE | 2022-02-23 11:21 | NUR ---
Covid swab done and sent to lab.
[2022-02-23] MEDS ORDERED: TERB250T90 PO (11:27)
[2022-02-23] MEDS ORDERED: METO50TA7 PO (11:27)
[2022-02-23] MEDS ORDERED: NOR10 PO (11:27)
[2022-02-23] MEDS ORDERED: AZIL80TA PO (11:27)
[2022-02-23] MEDS ORDERED: CARB1TAB21 PO (11:27)
[2022-02-23] MEDS ORDERED: RIVA10TA PO (11:27)
[2022-02-23] MEDS ORDERED: METF-518 PO (11:27)
--- NOTE | 2022-02-23 11:27 | NUR ---
Medication reconciliation completed with information provided by daughter. Any prior medication reconciliation on file was reviewed and corrected.
--- NOTE | 2022-02-23 11:29 | NUR ---
Personal Belonging List Completed.
[2022-02-23 11:38] LABS: ANION GAP 10 (5-15); CHLORIDE 104 mmol/L (98-107); CREATININE 1.69 mg/dL (0.55-1.30); GLUCOSE 215 mg/dL (70-99); POTASSIUM 4.2 mmol/L (3.5-5.1); SODIUM SERUM 138 mmol/L (136-145); UREA NITROGEN, BLOOD 34 mg/dL (8-21)
[2022-02-23 11:41] LABS: ACETONE, SERUM NEGATIVE (NEGATIVE)
[2022-02-23 11:52] LABS: ALANINE AMINOTRANSFERASE 9 U/L (12-78); ALBUMIN 2.8 g/dL (3.4-4.8); ASPARTATE AMINOTRANSFERASE 9 U/L (10-37); TOTAL BILIRUBIN 0.2 mg/dL (0.0-1.0)
--- NOTE | 2022-02-23 12:30 | NUR ---
16 # FR In and Out catheter with use of sterile technique. Immediate return of 100 ml urine noted. Urine sample collected and sent to lab. Pt tolerated procedure . Patient unable to toilet self.
[2022-02-23 12:38] LABS: BILIRUBIN,URINE NEGATIVE (NEGATIVE); BLOOD, URINE 1+ (NEGATIVE); CLARITY/URINE CLOUDY (CLEAR); COLOR,URINE YELLOW (YELLOW); GLUCOSE,URINE NEGATIVE (NEGATIVE); KETONES,URINE NEGATIVE (NEGATIVE); LEUKOCYTE ESTERASE ,URINE 2+ (NEGATIVE); NITRITE, URINE NEGATIVE (NEGATIVE); PH,URINE 5.5 (5.0-8.0); PROTEIN URINE 2+ (NEGATIVE); UROBILINOGEN,URINE 0.2 (0.2-1.0)
[2022-02-23 12:48] LABS: BACTERIA,URINE MANY /HPF (None Seen); MUCUS,URINE 1+ /LPF (None Seen); WBC,URINE 50-80 /HPF (0-3)
--- NOTE | 2022-02-23 13:35 | NUR ---
# 22 gauge angiocath placed to right wrist. Use of asceptic technique. Opsite placed over site. Blood return noted. Flushed with 10 cc of normal saline. No evidence of infiltration noted. Patient tolerated well.
--- NOTE | 2022-02-23 15:53 | NUR ---
Admit bed requested Patient will be admitted to care of . Admitted to Tele unit. Diagnosis Covid, Pneumonia Inpatient (Yes or No) Yes Observation (Yes or No) No Orientation concerns or request close to nursing station (Yes or No) No Covid Status Positive On vent or bipap No Isolation requirements Yes Needs a sitter No From Home (Yes or if No enter name of facility) Yes Requires Dialysis (Yes or No) No Med Rec Completed (Yes of No) Yes
--- NOTE | 2022-02-23 16:01 | NUR ---
Admission orders received from Dr. Morales and have been placed.
--- NOTE | 2022-02-23 17:15 | NUR ---
Miss Cool is being admitted to room Addendum: 02/23/22 at 1839 by [employer] industrial millwright [id number]. She has been assessed as indicated. She continues to be unresponsive. Her eyes open up with repositioning but she has not egaged with staff verbally. The admission process has been started. She is on 4L NC and shes tolerated this well. Her skin has been assessed. She has no open areas. sacral area is red but not open. She is presently resting quietly
--- NOTE | 2022-02-23 17:33 | NUR ---
Patient will be admitted to care of Dr. Morales. Admitted to Tele unit. Will go to room 123B. Belongings list completed. Complete and up to date summary report printed. SBAR report to be given at bedside with opportunity for questions.
[2022-02-23] MEDS ORDERED: AZITHROMYCIN 500 MG in NS 250 ML IV ONE (17:45)
[2022-02-23] MEDS ORDERED: cefTRIAXone 1 GM in D5W 50 ML IV ONE (17:45)
[2022-02-23] MEDS ORDERED: D5/0.45 NS 1,000 ML IV ONE (18:00)
[2022-02-23 18:14] VITALS: BP_SYST 113
[2022-02-23] MEDS ORDERED: D5W 1,000 ML IV PRN (19:00)
[2022-02-23] MEDS ORDERED: GLUCOSE (DEXTROSE) ORAL GEL -Adults PO PRN (19:00)
[2022-02-23] MEDS ORDERED: DEXTROSE 50% JECT 50 ML DISP.SYRIN IVP PRN (19:00)
[2022-02-23 20:30] VITALS: BP_SYST 111
[2022-02-23] MEDS: CARBIDOPA/LEVODOPA 25/100 MG TABLET PO SCH ×2 (21:37→21:38)
[2022-02-23] MEDS: DOCUSATE SODIUM 100 MG CAPSULE PO SCH ×2 (21:37→21:38)
[2022-02-23] MEDS: 0.45% NACL 1,000 ML IV SCH (21:38)
--- NOTE | 2022-02-23 21:38 | NUR ---
IVF, meds Hung new bag of IVF and infusing well, no s/x of infiltration. Administered Rocephin-antibiotic and infusing well. Patient is lethargic yet arousable. Though opens mouth upon stimulus with spoon on lips, she does not follow command and unable to swallow PO meds. Safety precautions in place.
--- NOTE | 2022-02-23 23:25 | NUR ---
Incoming call from daughter Daughter Huyen called to check on her mother. She informed me that normally she eats well, with feeder assist. I answered her questions and informed her she is on oxygen support.
[2022-02-24] VITALS (8 sets, daily range): BP systolic 96–139
[2022-02-24] MEDS: INSULIN REGULAR, HUMAN 100 UNITS/ML, 10 ML VIAL (humuLIN R) SUBCUT PRN (01:20)
--- NOTE | 2022-02-24 03:08 | NUR ---
Dr. Trejo Paged and s/w Dr. Trejo. Updated on patients condition. She desaturated on simple mask, he had ABG order for am and it was done; read results. Received order to keep on NRB, chest xray in am and repeat ABG in am.
--- NOTE | 2022-02-24 06:50 | NUR ---
closing note Resting in bed, no distress. 100% oxygen saturation on NRB. Fingerstick BS result of 134 mg/dL. IVF infusing well, no s/sx of infiltration. Repositioned/turned, pericare. Needs met throughout shift. Safety, aspiration and isolation precautions observed. Will endorse to day shift nurse.l
[2022-02-24] MEDS ORDERED: RIVAROXABAN 10 MG TABLET PO SCH (09:00)
[2022-02-24] MEDS ORDERED: METOPROLOL SUCCINATE 25 MG TAB.SR.24H (TOPROL XL) PO SCH (09:00)
[2022-02-24] MEDS ORDERED: amLODIPine BESYLATE 10 MG TABLET PO SCH (09:00)
[2022-02-24] MEDS: CARBIDOPA/LEVODOPA 25/100 MG TABLET PO SCH ×3 (09:00→21:00)
[2022-02-24] MEDS: METOPROLOL SUCCINATE 50 MG TAB.SR.24H (TOPROL XL) PO SCH (09:00)
[2022-02-24] MEDS: amLODIPine BESYLATE 10 MG TABLET PO SCH (09:00)
[2022-02-24] MEDS: DOCUSATE SODIUM 100 MG CAPSULE PO SCH ×2 (09:00→21:00)
[2022-02-24] MEDS ORDERED: TERbinafine HCL 250 MG TABLET(LamISIL) PO SCH ×2 (09:00)
[2022-02-24] MEDS: cefTRIAXone 1 GM in D5W 50 ML IV SCH (10:11)
[2022-02-24] MEDS: AZITHROMYCIN 500 MG in NS 250 ML IV SCH (10:12)
[2022-02-24] MEDS: DEXAMETHASONE SOD PHOSPHATE 10 MG/ML VIAL IVP SCH (10:35)
[2022-02-24] MEDS: 0.45% NACL 1,000 ML IV SCH (15:56)
--- NOTE | 2022-02-24 16:25 | NUR ---
ST EVALUATION COMPLETED. ST TX NOT INDICATED AT THIS TIME. RECOMMEND NPO AND ALTERNATIVE MEANS OF NUTRITION DUE TO INABILITY TO DEMONSTRATE A SAFE, EFFECTIVE SWALLOW. PT DID NOT OPEN MOUTH FOR THERMAL STIMULATION TO LIPS AND DID NOT EVOKE A SWALLOW
[2022-02-24] MEDS ORDERED: ASCORBIC ACID 500 MG TABLET PO ONE (16:45)
[2022-02-24] MEDS ORDERED: CHOLECALCIFEROL (VITAMIN D3) 2,000 UNIT TABLET PO ONE (16:45)
[2022-02-24] MEDS: RIVAROXABAN 10 MG TABLET PO SCH (17:44)
[2022-02-24] MEDS: ASCORBIC ACID 500 MG TABLET PO SCH (21:00)
[2022-02-25] MEDS: INSULIN REGULAR, HUMAN 100 UNITS/ML, 10 ML VIAL (humuLIN R) SUBCUT PRN ×4 (00:23→17:56)
[2022-02-25 01:11] VITALS: BP_SYST 132
--- NOTE | 2022-02-25 04:30 | NUR ---
Desaturation Upon entrance to room, patient noted to be coughing, O2 sat 86-89%, decreased from 94-95% shortly before. Small amount of secretions suctioned from mouth, HOB elevated higher. Tube feeding to NG tube paused, no residual noted. RT came to bedside and placed patient on nonrebreather. O2 sat increased to 99%.
--- NOTE | 2022-02-25 06:04 | NUR ---
CONSULTATION PAGED/CALLED Reason for Consultation: RENAL FAILURE Person Who was Notified: FERMIN Consulting Physician: FRITZ IS OUT OF TOWN DOCTOR KRISTIE IS COVERING Textile Slitting Machine Operator Specialty: Ordering Physician: DOMINICK
[2022-02-25 06:06] LABS: BASOPHILS % (AUTO) 0.1 % (0.0-2.0); HEMATOCRIT 25.7 % (36-48); HEMOGLOBIN 8.5 g/dL (12.0-16.0); LYMPHOCYTES # (AUTO) 0.2 K/uL (1.0-5.5); LYMPHOCYTES % (AUTO) 4.4 % (20.5-51.5); MEAN CORPUSCULAR HEMOGLOBIN 25 pg (27-31); MEAN CORPUSCULAR HGB CONC 33 % (32-36); MEAN CORPUSCULAR VOLUME 76 fL (79.0-98.0); MONOCYTES # (AUTO) 0.2 K/uL (0.0-1.0); MONOCYTES % (AUTO) 3.7 % (1.7-9.3); NEUTROPHILS # (AUTO) 4.6 K/uL (1.8-7.7); NEUTROPHILS % (AUTO) 91.8 % (40.0-70.0); PLATELET COUNT (AUTO) 195 K/uL (130-430); RED BLOOD CELL COUNT(AUTO) 3.39 MIL/uL (4.2-6.2); RED CELL DISTRIBUTION WIDTH 17.8 % (9.0-15.0)
[2022-02-25 06:19] LABS: ANION GAP 8 (5-15); CALCIUM 9.7 mg/dL (8.4-11.0); CHLORIDE 106 mmol/L (98-107); GLUCOSE 192 mg/dL (70-99); POTASSIUM 4.1 mmol/L (3.5-5.1); SODIUM SERUM 138 mmol/L (136-145); UREA NITROGEN, BLOOD 35 mg/dL (8-21)
--- NOTE | 2022-02-25 07:30 | NUR ---
Closing Patient resting in bed, 99-100% on nonrebreather. Per resource nurse, day shift RT will attempt to titrate down. 40mL residual noted from NG tube. Aspiration precautions in place. Notified Dr. Trejo that patient desaturated earlier this morning and received clarification that he does want an ABG done today. Care endorsed to oncoming nurse.
[2022-02-25] MEDS: cefTRIAXone 1 GM in D5W 50 ML IV SCH (08:23)
[2022-02-25] MEDS: AZITHROMYCIN 500 MG in NS 250 ML IV SCH (08:23)
[2022-02-25] MEDS: DOCUSATE SODIUM 100 MG CAPSULE PO SCH ×2 (08:24→21:56)
[2022-02-25] MEDS: ASCORBIC ACID 500 MG TABLET PO SCH ×2 (08:24→21:56)
[2022-02-25] MEDS: CARBIDOPA/LEVODOPA 25/100 MG TABLET PO SCH ×3 (08:24→21:56)
[2022-02-25] MEDS: CHOLECALCIFEROL (VITAMIN D3) 2,000 UNIT TABLET PO SCH (08:24)
[2022-02-25] MEDS: DEXAMETHASONE SOD PHOSPHATE 10 MG/ML VIAL IVP SCH (08:25)
[2022-02-25] MEDS: 0.45% NACL 1,000 ML IV SCH ×2 (08:27→22:03)
[2022-02-25] MEDS: amLODIPine BESYLATE 10 MG TABLET PO SCH (09:48)
[2022-02-25] MEDS: METOPROLOL SUCCINATE 50 MG TAB.SR.24H (TOPROL XL) PO SCH (09:49)
[2022-02-25 12:00] VITALS: BP_SYST 140
--- NOTE | 2022-02-25 12:00 | NUR ---
EDUCATED DAUGHTER AT BEDSIDE ABOUT PATIENTS STATUS AND PLAN OF CARE. ALL QUESTIONS ANSWERED AND DAUGHTER VOICED UNDERSTANDING.
--- NOTE | 2022-02-25 13:00 | NUR ---
MONSIVAIS CATHETER INSERTED, 16F DRAINING CLEAR YELLOW URINE TO GRAVITY, PATIENT TOLERATING WELL, STERILE TECHNIQUE PERFORMED, PERICARE PERFORMED BEFORE AND AFTER INSERTION, WILL CONTINUE TO MONITOR.
--- NOTE | 2022-02-25 14:44 | NUR ---
Dietitian Recommendations * Vital AF 1.2 at 40 ml/hr (goal rate), Edgardo BID, Free Water Flush: per physician d/t renal Dz via NGT Provides: 1312 kcal/day, 77 gm protein/day, and 779 ml free water/day Meets: 85% of lower end of estimated caloric needs and 103% of upper end of estimated protein needs LP, RD Please refer to Nutrition Assessment for details. Addendum: 02/25/22 at [address] Amended: Links added.
[2022-02-25 16:18] VITALS: BP_SYST 145
[2022-02-25] MEDS: RIVAROXABAN 10 MG TABLET PO SCH (17:16)
[2022-02-25 20:00] VITALS: BP_SYST 116
[2022-02-26] VITALS: BP_SYST 120
[2022-02-26] MEDS: INSULIN REGULAR, HUMAN 100 UNITS/ML, 10 ML VIAL (humuLIN R) SUBCUT PRN ×5 (00:30→23:59)
[2022-02-26 06:00] VITALS: BP_SYST 112
--- NOTE | 2022-02-26 07:04 | NUR ---
PATIENT WAS ASLEEP THE WHOLE NIGHT. REPOSITIONED EVERY TWO HOURS. ON NRM SATTING BETWEEN 94-96%. VS STABLE. NO DISTRESS. WITHDRAWN. NONVERBAL. ABLE TO MOVE EXTREMITIES WELL. IV CONNECTED TO IVF AND INFUSING WELL. NGT IN PLACE WITH DESIRED TUBE FEEDING AT SET RATE ORDERED. VOIDING WELL. NO STOOL. KEPT WARM AND COMFORTABLE. ALL NEEDS ATTENDED. CALL LIGHT PLACED WITHIN REACH. MONITORED CLOSELY.
--- NOTE | 2022-02-26 07:10 | NUR ---
OPENING NOTE RECEIVED SBAR FROM NIGHT RN, PATIENT ON NON RE BREATHER, BED IN LOW AND LOCKED POSITION, CALL LIGHT WITHIN REACH, BED ALARM ON
[2022-02-26 07:36] LABS: INR 1.1 (0.8-1.2); PROTHROMBIN TIME 10.9 SECS (9.5-12.5)
[2022-02-26 07:46] LABS: BASOPHILS % (AUTO) 0.2 % (0.0-2.0); HEMATOCRIT 26.5 % (36-48); HEMOGLOBIN 8.7 g/dL (12.0-16.0); LYMPHOCYTES # (AUTO) 0.3 K/uL (1.0-5.5); LYMPHOCYTES % (AUTO) 5.4 % (20.5-51.5); MEAN CORPUSCULAR HEMOGLOBIN 25 pg (27-31); MEAN CORPUSCULAR HGB CONC 33 % (32-36); MEAN CORPUSCULAR VOLUME 77 fL (79.0-98.0); MONOCYTES # (AUTO) 0.4 K/uL (0.0-1.0); MONOCYTES % (AUTO) 6.5 % (1.7-9.3); NEUTROPHILS # (AUTO) 4.7 K/uL (1.8-7.7); NEUTROPHILS % (AUTO) 87.9 % (40.0-70.0); PLATELET COUNT (AUTO) 223 K/uL (130-430); RED BLOOD CELL COUNT(AUTO) 3.45 MIL/uL (4.2-6.2); RED CELL DISTRIBUTION WIDTH 17.9 % (9.0-15.0); WHITE BLOOD COUNT (AUTO) 5.4 K/uL (4.8-10.8)
[2022-02-26 07:55] LABS: ANION GAP 6 (5-15); CHLORIDE 106 mmol/L (98-107); CREATININE 1.14 mg/dL (0.55-1.30); GLUCOSE 267 mg/dL (70-99); POTASSIUM 3.7 mmol/L (3.5-5.1); SODIUM SERUM 137 mmol/L (136-145); UREA NITROGEN, BLOOD 40 mg/dL (8-21)
[2022-02-26 08:01] LABS: ALBUMIN 1.9 g/dL (3.4-4.8); ASPARTATE AMINOTRANSFERASE 18 U/L (10-37); C-REACTIVE PROTEIN QUANT 12.8 mg/dL (0-0.5); LACTATE DEHYDROGENASE 109 U/L (81-234); PHOSPHORUS 1.5 mg/dL (2.7-4.5); TOTAL BILIRUBIN 0.1 mg/dL (0.0-1.0)
[2022-02-26 08:21] LABS: ALANINE AMINOTRANSFERASE 1 U/L (12-78)
[2022-02-26] MEDS: CARBIDOPA/LEVODOPA 25/100 MG TABLET PO SCH ×3 (08:53→20:46)
[2022-02-26] MEDS: ASCORBIC ACID 500 MG TABLET PO SCH ×2 (08:53→20:46)
[2022-02-26] MEDS: CHOLECALCIFEROL (VITAMIN D3) 2,000 UNIT TABLET PO SCH (08:53)
[2022-02-26] MEDS: DOCUSATE SODIUM 100 MG CAPSULE PO SCH ×2 (08:55→20:46)
[2022-02-26] MEDS: amLODIPine BESYLATE 10 MG TABLET PO SCH (08:55)
[2022-02-26] MEDS: AZITHROMYCIN 500 MG in NS 250 ML IV SCH (08:56)
[2022-02-26] MEDS: cefTRIAXone 1 GM in D5W 50 ML IV SCH (08:56)
[2022-02-26] MEDS: METOPROLOL SUCCINATE 50 MG TAB.SR.24H (TOPROL XL) PO SCH (08:56)
[2022-02-26] MEDS: DEXAMETHASONE SOD PHOSPHATE 10 MG/ML VIAL IVP SCH (08:57)
--- NOTE | 2022-02-26 11:00 | NUR ---
SPOKE WITH DR FLOWERS REGARDING PATIENTS STATUS, NEW ORDERS RECEIVED
--- NOTE | 2022-02-26 11:05 | NUR ---
HIGH ALERT NOTE: Called Dr. FLOWERS back identified within the medical roster to verify physician authenticity.
[2022-02-26] MEDS: 0.45% NACL 1,000 ML IV SCH (11:15)
[2022-02-26 12:00] VITALS: BP_SYST 115
--- NOTE | 2022-02-26 12:00 | NUR ---
FREE WATER FLUSH 0 RESIDUAL, FLUSHED FREELY 150 ML WATER. PATIENT TOLERATED WELL, NO SIGNS OF DISTRESS NOTED
[2022-02-26] MEDS ORDERED: NA PHOS IV ONE (12:30)
[2022-02-26] MEDS ORDERED: D5W IV ONE (12:30)
--- NOTE | 2022-02-26 13:08 | NUR ---
INFORMED DR ORTIZ OF PATIENTS D DIMER AND FIBRINOGEN, NEW ORDERS RECEIVED
[2022-02-26 16:00] VITALS: BP_SYST 113
--- NOTE | 2022-02-26 16:11 | NUR ---
NURSE NOTE PATIENT INCONTINENT OF BOWEL, PROVIDED SONDRA CARE, CHANGED LINENS, REPOSITIONED PATIENT
[2022-02-26] MEDS: RIVAROXABAN 10 MG TABLET PO SCH (17:49)
--- NOTE | 2022-02-26 17:50 | NUR ---
FREE WATER FLUSH 0 RESIDUAL, FLUSHED FREELY 150 ML WATER. PATIENT TOLERATED WELL, NO SIGNS OF DISTRESS NOTED
--- NOTE | 2022-02-26 19:06 | NUR ---
CLOSING NOTE PROVIDED SBAR TO NIGHT RN, PATIENT IN BED, RESPIRATIONS EVEN, NON LABORED, BED IN LOW AND LOCKED POSITION, CALL LIGHT WITHIN REACH, RESTRAINTS IN PLACE, NO SIGNS OF SKIN BREAKDOWN, GOOD CAPILLARY REFILL. MONSIVAIS DRAINING BY GRAVITY, IVF'S RUNNING ORDERED. NG TUBE FEEDING RUNNING ORDERED. ENDORSED CARE TO NIGHT RN
--- NOTE | 2022-02-26 19:22 | NUR ---
CONSULTATION PAGED/CALLED Reason for Consultation: COVID ,HIGH DIMER , FIBRINOGEN Person Who was Notified:AURELIO Consulting Physician: JOSE Hot Dog Vender Specialty: Ordering Physician: ANGEL
[2022-02-26 20:00] VITALS: BP_SYST 123
[2022-02-27] VITALS (7 sets, daily range): BP systolic 116–137
--- NOTE | 2022-02-27 06:00 | NUR ---
PATIENT REMAINS RESTING ON BED. RESPOND TO TACTILE STIMULI. FLAT AFFECT. AAOX1. NGT IN PLACE CONNECTED TO TUBE FEEDING AT 40 CC/HR. TOLERATED WELL WITH MINIMAL RESIDUALS NOTED. VOIDING AND NO STOOL NOTED. MONSIVAIS IN PLACE AND DRAINING CLEAR YELLOW URINE IN MODERATE AMOUNT. BLOOD SUGARS CHECKED AND COVERED WITH INSULIN ORDERED. KEPT WARM AND COMFORTABLE. ALL NEEDS ATTENDED. CALL LIGHT PLACED WITHIN REACH. MONITORED CLOSELY.
[2022-02-27] MEDS: INSULIN REGULAR, HUMAN 100 UNITS/ML, 10 ML VIAL (humuLIN R) SUBCUT PRN ×2 (06:34→11:48)
--- NOTE | 2022-02-27 07:50 | NUR ---
RECEIVED PT LYING IN BED, NO DISTRESS NOTED, APPEARS COMFORTABLE. ON VENTI MASK O2 SAT 97%, ADVENTITIOUS LUNG SOUNDS. ON TUBE FEEDING @40CC/HR. IVF AT 50CC/HR IV SITE RT WRIST CDI. F/C SECURED TO LEG, URINE CLEAR YELLOW URINE. Addendum: 02/27/22 at 1028 by Huseyin Jones RN 1015: WRIST RESTRAINTS REMOVED ROM PERFORMED. PT DOES CONTINUE TO ATTEMPT TOUCHING TUBING. NO RESIDUAL FOR NGT FEEDING. Addendum: 02/27/22 at 1125 by Huseyin Jones RN 1115: 2[employer] AT THE BED SIDE Addendum: 02/27/22 at 1300 by [facility] Two rougher machine operator 1259: NOTIFIED DR. KRISTIE Zhang WITH CURRENT LAB VALUES. TO: DECREASE IVF TO 30ML/HR AND AM LAB. Addendum: 02/27/22 at 1403 by [facility] Two rougher machine operator 1400: UNABLE TO CANCEL PHOS AND MG LAB DRAWS FOR 11/28/21 @1300. NOTIFIED PEDIATRIC PHYSIATRIST. DRAW IS FOR TOMORROW MORNING. Addendum: 02/27/22 at 1702 by [facility] rougher machine operator [id number]: ANTHONY GUPTA IN PHARMACY NEEDS THE APPROVAL FOR REMDESIVIR. HE STATED ONCE HE GETS THE OKAY HE'LL SEND IT.
[2022-02-27 09:46] LABS: ANION GAP 6 (5-15); CALCIUM 10.3 mg/dL (8.4-11.0); CHLORIDE 108 mmol/L (98-107); CREATININE 0.79 mg/dL (0.55-1.30); GLUCOSE 272 mg/dL (70-99); POTASSIUM 3.6 mmol/L (3.5-5.1); SODIUM SERUM 136 mmol/L (136-145); UREA NITROGEN, BLOOD 41 mg/dL (8-21)
[2022-02-27] MEDS: CARBIDOPA/LEVODOPA 25/100 MG TABLET PO SCH ×3 (09:49→22:29)
[2022-02-27] MEDS: DOCUSATE SODIUM 100 MG CAPSULE PO SCH ×2 (09:49→22:29)
[2022-02-27] MEDS: DEXAMETHASONE SOD PHOSPHATE 10 MG/ML VIAL IVP SCH (09:49)
[2022-02-27] MEDS: amLODIPine BESYLATE 10 MG TABLET PO SCH ×2 (09:50→09:51)
[2022-02-27] MEDS: CHOLECALCIFEROL (VITAMIN D3) 2,000 UNIT TABLET PO SCH (09:52)
[2022-02-27] MEDS: ASCORBIC ACID 500 MG TABLET PO SCH ×2 (09:52→22:29)
[2022-02-27] MEDS: METOPROLOL SUCCINATE 50 MG TAB.SR.24H (TOPROL XL) PO SCH (09:52)
[2022-02-27] MEDS: cefTRIAXone 1 GM in D5W 50 ML IV SCH (09:55)
[2022-02-27] MEDS: AZITHROMYCIN 500 MG in NS 250 ML IV SCH (10:33)
[2022-02-27] MEDS: 0.45% NACL 1,000 ML IV SCH (13:30)
[2022-02-27 13:50] LABS: PHOSPHORUS 2.5 mg/dL (2.7-4.5)
[2022-02-27] MEDS: RIVAROXABAN 10 MG TABLET PO SCH (17:17)
--- NOTE | 2022-02-27 20:00 | NUR ---
RECIEVED PT FROM AM NURSE. NO DISTRESS. WITHDRAWN. NONVERBAL. PT ON TUBE FEEDING vITAL 1.2 ON 40MLS/HR. lUNGS ARE DIMINISHED AT BASES. SATURATION OF 89-96% UPON INITIAL ASSESSMENT. NOTIFIED RT TO HELP CLEAR AIRWAY IN ORDER TO HELP WITH SATURATION. ABLE TO MOVE UPPER EXTREMITIES UPON ITIAL REALESE OF BILATERAL RESTRAINTS. . IV CONNECTED TO IVF AND INFUSING WELL. NGT IN PLACE WITH DESIRED TUBE FEEDING AT SET RATE ORDERED. VOIDING WELL. NO STOOL. KEPT WARM AND COMFORTABLE. ALL NEEDS ATTENDED. CALL LIGHT PLACED WITHIN REACH. MONITORED CLOSELY.
[2022-02-28] VITALS: BP_SYST 139
[2022-02-28] MEDS: INSULIN REGULAR, HUMAN 100 UNITS/ML, 10 ML VIAL (humuLIN R) SUBCUT PRN ×4 (00:17→19:08)
--- NOTE | 2022-02-28 02:32 | NUR ---
NOTIFIED RT PT IS DESATURATING BETWEEN 85% AND 94% ON 15l OXIMIZER. CHARGE NURSE AWARE OF RT PLAN TO WEEN HER OFF THE NRB, WILL FOLLOW UP.
[2022-02-28] MEDS: 0.45% NACL 1,000 ML IV SCH (06:10)
--- NOTE | 2022-02-28 06:15 | NUR ---
NOTIFIED MD ZAMUDIO REGADING PT DESATING , CHANGED TO NRB, TRIED TO WEEN PT OFF nrb BACK ONTO VENTI, DESAT AGAIN AT 86%. CURRENTLY PT IS ON NRB 15L. NOTIFIED ABOUT SIMILAR TRENDING ABGS DONE AT 0400. NNO PER MD ZAMUDIO
[2022-02-28 07:15] LABS: BASOPHILS % (AUTO) 0.2 % (0.0-2.0); EOSINOPHILS % (AUTO) 0.1 % (0.0-4.0); HEMATOCRIT 25.5 % (36-48); HEMOGLOBIN 8.5 g/dL (12.0-16.0); LYMPHOCYTES # (AUTO) 0.7 K/uL (1.0-5.5); LYMPHOCYTES % (AUTO) 7.8 % (20.5-51.5); MEAN CORPUSCULAR HEMOGLOBIN 25 pg (27-31); MEAN CORPUSCULAR HGB CONC 33 % (32-36); MEAN CORPUSCULAR VOLUME 76 fL (79.0-98.0); MONOCYTES # (AUTO) 0.6 K/uL (0.0-1.0); NEUTROPHILS % (AUTO) 85.9 % (40.0-70.0); PLATELET COUNT (AUTO) 243 K/uL (130-430); RED BLOOD CELL COUNT(AUTO) 3.37 MIL/uL (4.2-6.2); WHITE BLOOD COUNT (AUTO) 9.3 K/uL (4.8-10.8)
[2022-02-28 08:00] VITALS: BP_SYST 133
[2022-02-28 08:12] LABS: ALANINE AMINOTRANSFERASE 3 U/L (12-78); ALBUMIN 1.9 g/dL (3.4-4.8); ANION GAP 3 (5-15); ASPARTATE AMINOTRANSFERASE 6 U/L (10-37); CALCIUM 9.3 mg/dL (8.4-11.0); CHLORIDE 108 mmol/L (98-107); CREATININE 0.79 mg/dL (0.55-1.30); GLUCOSE 280 mg/dL (70-99); PHOSPHORUS 2.6 mg/dL (2.7-4.5); POTASSIUM 3.7 mmol/L (3.5-5.1); SODIUM SERUM 138 mmol/L (136-145); TOTAL BILIRUBIN 0.1 mg/dL (0.0-1.0); UREA NITROGEN, BLOOD 37 mg/dL (8-21)
[2022-02-28 09:28] LABS: BILIRUBIN,DIRECT < 0.1 mg/dL (0.0-0.3)
[2022-02-28] MEDS: AZITHROMYCIN 500 MG in NS 250 ML IV SCH (10:50)
[2022-02-28] MEDS: CARBIDOPA/LEVODOPA 25/100 MG TABLET PO SCH ×3 (10:50→22:17)
[2022-02-28] MEDS: DEXAMETHASONE SOD PHOSPHATE 10 MG/ML VIAL IVP SCH (10:50)
[2022-02-28] MEDS: cefTRIAXone 1 GM in D5W 50 ML IV SCH (10:50)
[2022-02-28] MEDS: METOPROLOL SUCCINATE 50 MG TAB.SR.24H (TOPROL XL) PO SCH ×2 (10:52→11:04)
[2022-02-28] MEDS: CHOLECALCIFEROL (VITAMIN D3) 2,000 UNIT TABLET PO SCH (10:53)
[2022-02-28] MEDS: ASCORBIC ACID 500 MG TABLET PO SCH ×2 (10:53→22:17)
[2022-02-28 12:00] VITALS: BP_SYST 134
[2022-02-28] MEDS: amLODIPine BESYLATE 10 MG TABLET PO SCH (15:15)
--- NOTE | 2022-02-28 18:00 | NUR ---
Miss Cool has been assessed as indicated. She has no s/s of distress. She does open her eyes. She has TF that has been well tolerated. Alexandra is patent and tolerated well NG to the right nare is in correct position and is patent. she has minimal residuals. Iv medications have been well tolerated. she has been checked on via telephone by her son Sidney and her daughter Marissa. Marissa states that Miss Cool is very lethargic and sleeps most of the day at home. She has to be stimulated by her family i order to get up and start her day. Marissa requested that family be permitted to come in and stimulate Miss Cool. She was informed that this was not possible. She asked that a phone be taken to Miss Cool and placed at her ear. This she was informed was a possibility but she should allow the on coming nurse to start his shift and reach out after 10pm or call tomorrow. Miss Cool is resting quietly at this time
[2022-02-28 19:00] VITALS: BP_SYST 128
[2022-02-28] MEDS: RIVAROXABAN 10 MG TABLET PO SCH (19:08)
--- NOTE | 2022-02-28 19:15 | NUR ---
handoff has been given to Ranulfo Montesinos
[2022-02-28 20:00] VITALS: BP_SYST 128
[2022-02-28] MEDS: DOCUSATE SODIUM 100 MG/10 ML UDC PO SCH (22:18)
[2022-03-01 04:00] VITALS: BP_SYST 135
[2022-03-01 07:08] LABS: BASOPHILS % (AUTO) 0.1 % (0.0-2.0); HEMOGLOBIN 8.3 g/dL (12.0-16.0); LYMPHOCYTES # (AUTO) 0.5 K/uL (1.0-5.5); LYMPHOCYTES % (AUTO) 6.9 % (20.5-51.5); MEAN CORPUSCULAR HEMOGLOBIN 25 pg (27-31); MEAN CORPUSCULAR HGB CONC 33 % (32-36); MEAN CORPUSCULAR VOLUME 75 fL (79.0-98.0); MONOCYTES # (AUTO) 0.5 K/uL (0.0-1.0); MONOCYTES % (AUTO) 7.2 % (1.7-9.3); NEUTROPHILS # (AUTO) 6.2 K/uL (1.8-7.7); NEUTROPHILS % (AUTO) 85.8 % (40.0-70.0); PLATELET COUNT (AUTO) 288 K/uL (130-430); RED BLOOD CELL COUNT(AUTO) 3.32 MIL/uL (4.2-6.2); RED CELL DISTRIBUTION WIDTH 17.6 % (9.0-15.0); WHITE BLOOD COUNT (AUTO) 7.3 K/uL (4.8-10.8)
[2022-03-01 08:00] VITALS: BP_SYST 125
[2022-03-01 08:01] LABS: ALANINE AMINOTRANSFERASE 2 U/L (12-78); ANION GAP 3 (5-15); ASPARTATE AMINOTRANSFERASE 9 U/L (10-37); CALCIUM 10.1 mg/dL (8.4-11.0); CHLORIDE 107 mmol/L (98-107); CREATININE 0.83 mg/dL (0.55-1.30); GLUCOSE 384 mg/dL (70-99); POTASSIUM 4.9 mmol/L (3.5-5.1); SODIUM SERUM 141 mmol/L (136-145); TOTAL BILIRUBIN 0.2 mg/dL (0.0-1.0); UREA NITROGEN, BLOOD 54 mg/dL (8-21)
[2022-03-01] MEDS: DOCUSATE SODIUM 100 MG/10 ML UDC PO SCH ×2 (11:31→21:28)
[2022-03-01] MEDS: CARBIDOPA/LEVODOPA 25/100 MG TABLET PO SCH ×3 (11:32→21:28)
[2022-03-01] MEDS: METOPROLOL SUCCINATE 50 MG TAB.SR.24H (TOPROL XL) PO SCH (11:32)
[2022-03-01] MEDS: DEXAMETHASONE SOD PHOSPHATE 10 MG/ML VIAL IVP SCH (11:32)
[2022-03-01] MEDS: ASCORBIC ACID 500 MG TABLET PO SCH ×2 (11:33→21:28)
[2022-03-01] MEDS: cefTRIAXone 1 GM in D5W 50 ML IV SCH (11:33)
[2022-03-01] MEDS: amLODIPine BESYLATE 10 MG TABLET PO SCH (11:33)
[2022-03-01] MEDS: CHOLECALCIFEROL (VITAMIN D3) 2,000 UNIT TABLET PO SCH (11:33)
[2022-03-01 12:00] VITALS: BP_SYST 110
[2022-03-01 16:00] VITALS: BP_SYST 110
[2022-03-01] MEDS: INSULIN REGULAR, HUMAN 100 UNITS/ML, 10 ML VIAL (humuLIN R) SUBCUT PRN (17:59)
--- NOTE | 2022-03-01 18:45 | NUR ---
Miss Cool has been assessed as indicated. TF continues to be well tolerated. Blood sugars are within normal limits of Sliding scale coverage. She continues to arouse to deep stimulation only. She remains nonverbal. Alexandra continues to drain clear yellow urine with adequate output. This sheet writer spoke with GLORIA her son today for an update. He states that the second swimming pool salesperson should be changed to his local sister Flory Herrmann [phone]. miss Cool is presently resting quietly
[2022-03-01] MEDS: 0.45% NACL 1,000 ML IV SCH (18:47)
[2022-03-01] MEDS: RIVAROXABAN 10 MG TABLET PO SCH (18:51)
--- NOTE | 2022-03-01 19:15 | NUR ---
handoff has been givne to Ranulof Ceballos
[2022-03-02] VITALS (9 sets, daily range): BP systolic 117–143
[2022-03-02] MEDS: INSULIN REGULAR, HUMAN 100 UNITS/ML, 10 ML VIAL (humuLIN R) SUBCUT PRN ×2 (06:10→12:28)
[2022-03-02 06:47] LABS: BASOPHILS % (AUTO) 0.2 % (0.0-2.0); HEMATOCRIT 26.7 % (36-48); HEMOGLOBIN 8.8 g/dL (12.0-16.0); LYMPHOCYTES # (AUTO) 0.5 K/uL (1.0-5.5); LYMPHOCYTES % (AUTO) 4.2 % (20.5-51.5); MEAN CORPUSCULAR HEMOGLOBIN 25 pg (27-31); MEAN CORPUSCULAR HGB CONC 33 % (32-36); MEAN CORPUSCULAR VOLUME 76 fL (79.0-98.0); MONOCYTES # (AUTO) 0.7 K/uL (0.0-1.0); MONOCYTES % (AUTO) 5.7 % (1.7-9.3); NEUTROPHILS # (AUTO) 10.5 K/uL (1.8-7.7); NEUTROPHILS % (AUTO) 89.9 % (40.0-70.0); PLATELET COUNT (AUTO) 351 K/uL (130-430); RED BLOOD CELL COUNT(AUTO) 3.52 MIL/uL (4.2-6.2); RED CELL DISTRIBUTION WIDTH 18.3 % (9.0-15.0); WHITE BLOOD COUNT (AUTO) 11.7 K/uL (4.8-10.8)
[2022-03-02 07:53] LABS: ANION GAP 6 (5-15); CALCIUM 11.1 mg/dL (8.4-11.0); CHLORIDE 109 mmol/L (98-107); CREATININE 0.91 mg/dL (0.55-1.30); POTASSIUM 4.5 mmol/L (3.5-5.1); SODIUM SERUM 143 mmol/L (136-145); UREA NITROGEN, BLOOD 54 mg/dL (8-21)
[2022-03-02 08:30] LABS: GLUCOSE 500 mg/dL (70-99)
[2022-03-02] MEDS: DOCUSATE SODIUM 100 MG/10 ML UDC PO SCH ×2 (10:23→22:08)
[2022-03-02] MEDS: ASCORBIC ACID 500 MG TABLET PO SCH ×2 (10:25→22:08)
[2022-03-02] MEDS: METOPROLOL SUCCINATE 50 MG TAB.SR.24H (TOPROL XL) PO SCH (10:25)
[2022-03-02] MEDS: cefTRIAXone 1 GM in D5W 50 ML IV SCH (10:25)
[2022-03-02] MEDS: amLODIPine BESYLATE 10 MG TABLET PO SCH (10:26)
[2022-03-02] MEDS: CHOLECALCIFEROL (VITAMIN D3) 2,000 UNIT TABLET PO SCH (10:26)
[2022-03-02] MEDS: DEXAMETHASONE SOD PHOSPHATE 10 MG/ML VIAL IVP SCH (10:26)
[2022-03-02] MEDS: CARBIDOPA/LEVODOPA 25/100 MG TABLET PO SCH ×3 (10:27→22:08)
[2022-03-02] MEDS ORDERED: INSULIN REGULAR, HUMAN 100 UNITS/ML, 10 ML VIAL SUBCUT SCH (17:00)
[2022-03-02] MEDS: RIVAROXABAN 10 MG TABLET PO SCH (18:07)
--- NOTE | 2022-03-02 18:45 | NUR ---
Miss Cool has been assessed as indicated. She has no s/s of distress or discomfort. Her oxygen has been decreased to 9L at 35%. She has tolerated this well. TF has been well tolerated. She has had 2 large loose stools this shift. And the Alexandra continues to drain adequate amounts of clear yellow urine. Blood sugars remain elevated SSI has been adjusted up to accommodate. This rfp writer spoke with her son Sidney albright to give an update.
--- NOTE | 2022-03-02 19:15 | NUR ---
Handoff was given to Mildred
--- NOTE | 2022-03-02 19:49 | NUR ---
4145: RECEIVED PT LYING IN BED. ON VENTI MASK AT 35% O2 SAT 85%. ORAL SUCTIONING DONE THICK WHITE MUCUS. NOTIFIED RT. RT CHANGED VENTI MASK TO NON BREATHER. O2 SAT 94%. Addendum: 03/02/22 at 1958 by [employer] medical education coordinator 1957: CHARGE NURSE IS CALL DR BAEZ. Addendum: 03/02/22 at 2020 by [employer] medical education coordinator 2004: DR ZAMUDIO ORDERED STAT ABG STAT CXRAY AND TRANSFER TO ICU. NOTIFIED CHARGE NURSE. Addendum: 03/02/22 at 2117 by [employer] medical education coordinator 2116: PT TRANSFERRED TO ICU REPORT GIVEN AT BEDSIDE.
--- NOTE | 2022-03-02 21:18 | NUR ---
Opening notes Received report from media production support manager Monica for continuity of care. Patient is lying in bed in no signs of distress with IVF NS @ 30 mL. Patient's vital signs blood pressure 117/59, heart rate 74, respirations 20, and SPO2 99% on nonrebreather mask @ 15. Alexandra catheter is in place draining to gravity. Bed is locked and in lowest position, fall and safety precautions is in place.
--- NOTE | 2022-03-02 21:35 | NUR ---
DAUGHTER CALLED : CALLED AND NOTIFIED FRANCISCO ARELLANO ABOUT THE TRANSFER TO ICU . FRANCISCO SAID SHE WILL NOTIFY HER BROTHER .
--- NOTE | 2022-03-02 22:08 | NUR ---
DR. ROBB PRINGLE PAGED AT THIS TIME REGARDING ABG RESULTS. SPOKE WITH ALICIA AT THE EXCHANGE.
[2022-03-02] MEDS: 0.45% NACL 1,000 ML IV SCH (22:09)
[2022-03-03] VITALS (24 sets, daily range): BP systolic 97–132
[2022-03-03] MEDS: INSULIN REGULAR, HUMAN 100 UNITS/ML, 10 ML VIAL (humuLIN R) SUBCUT PRN ×4 (00:19→18:42)
[2022-03-03 06:19] LABS: BASOPHILS # (AUTO) 0.1 K/uL (0.0-0.2); BASOPHILS % (AUTO) 0.4 % (0.0-2.0); EOSINOPHILS # (AUTO) 0.1 K/uL (0.0-0.4); EOSINOPHILS % (AUTO) 0.7 % (0.0-4.0); HEMATOCRIT 23.7 % (36-48); HEMOGLOBIN 7.8 g/dL (12.0-16.0); LYMPHOCYTES # (AUTO) 0.5 K/uL (1.0-5.5); LYMPHOCYTES % (AUTO) 3.7 % (20.5-51.5); MEAN CORPUSCULAR HEMOGLOBIN 25 pg (27-31); MEAN CORPUSCULAR HGB CONC 33 % (32-36); MEAN CORPUSCULAR VOLUME 77 fL (79.0-98.0); MONOCYTES # (AUTO) 0.6 K/uL (0.0-1.0); MONOCYTES % (AUTO) 4.1 % (1.7-9.3); NEUTROPHILS # (AUTO) 12.7 K/uL (1.8-7.7); NEUTROPHILS % (AUTO) 91.1 % (40.0-70.0); PLATELET COUNT (AUTO) 357 K/uL (130-430); RED BLOOD CELL COUNT(AUTO) 3.09 MIL/uL (4.2-6.2); RED CELL DISTRIBUTION WIDTH 18.5 % (9.0-15.0); WHITE BLOOD COUNT (AUTO) 13.9 K/uL (4.8-10.8)
[2022-03-03] MEDS: 0.45% NACL 1,000 ML IV SCH (06:53)
[2022-03-03 06:54] LABS: ALANINE AMINOTRANSFERASE 3 U/L (12-78); ALBUMIN 1.8 g/dL (3.4-4.8); ANION GAP 5 (5-15); ASPARTATE AMINOTRANSFERASE 12 U/L (10-37); CALCIUM 10.8 mg/dL (8.4-11.0); CHLORIDE 113 mmol/L (98-107); CREATININE 0.93 mg/dL (0.55-1.30); GLUCOSE 302 mg/dL (70-99); POTASSIUM 4.3 mmol/L (3.5-5.1); SODIUM SERUM 147 mmol/L (136-145); TOTAL BILIRUBIN 0.2 mg/dL (0.0-1.0); UREA NITROGEN, BLOOD 76 mg/dL (8-21)
[2022-03-03] MEDS: DEXAMETHASONE SOD PHOSPHATE 10 MG/ML VIAL IVP SCH (08:29)
[2022-03-03] MEDS: DOCUSATE SODIUM 100 MG/10 ML UDC PO SCH ×2 (08:29→20:39)
[2022-03-03] MEDS: CARBIDOPA/LEVODOPA 25/100 MG TABLET PO SCH ×3 (08:29→20:39)
[2022-03-03] MEDS: METOPROLOL SUCCINATE 50 MG TAB.SR.24H (TOPROL XL) PO SCH (08:30)
[2022-03-03] MEDS: ASCORBIC ACID 500 MG TABLET PO SCH ×2 (08:30→20:40)
[2022-03-03] MEDS: CHOLECALCIFEROL (VITAMIN D3) 2,000 UNIT TABLET PO SCH (08:30)
[2022-03-03] MEDS: amLODIPine BESYLATE 10 MG TABLET PO SCH (08:30)
[2022-03-03] MEDS ORDERED: cefTRIAXone 1 GM in D5W 50 ML IV SCH (09:00)
[2022-03-03 10:02] LABS: INR 1.2 (0.8-1.2); PROTHROMBIN TIME 12.2 SECS (9.5-12.5)
--- NOTE | 2022-03-03 10:21 | NUR ---
rt notes (titration) 0705 Pt on 125L NRB, pt saturating 98%. 0958 Placed on on 12L- 40% FIO2 Venti mask. Pt desaturatign to mid 80s. After 10 mins, increased to 15L VM-50% FIO2 still desaturating. 1021 Pt switched back to 15L NRB, Pt doesnt tolerate any titration. will continue to monitor pt. HARISH Mixon aware. Addendum: 03/03/22 at 1035 by Venessa Duque RT 0705 Pt on 15L NRB, pt saturating 98%.
--- NOTE | 2022-03-03 13:22 | NUR ---
bowel movement noted, brown soft, moderate size, pericare provided, patient tolerated well.
--- NOTE | 2022-03-03 16:30 | NUR ---
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 Primary RN reported that pt was transferred to ICU overnight last night d/t desaturating in the 80s. RN confirmed pt's TF order and tolerating TF well; plan for PICC placement. Per EMR review, pt had a brown/soft/moderate-sized BM this afternoon; pt is on 15 L O2 via NRBM; Vital AF 1.2 at 40 ml/hr infusing via L nares NGT 03/03; abd is soft and non-distended w/ active bowel sounds; TF Intakes: 160 ml 03/03; GRV: 5 ml 03/03; bilat hand w/ 1+ pitting edema. Current TF prescription is adequate/appropriate at this time. Current Diet Order/Nutrition Support: Vital AF 1.2 at 40 ml/hr (goal rate), Edgardo BID, Free Water Flush: per physician d/t renal Dz via NGT x6 days Patient/Significant Other Unable To Verbalize Education Provided Not Indicated Pertinent Medications: SSI, colace, VIT D3, VIT C, zinc, xarelto, decadron Pertinent Labs: BG 302 H, POC BG 264 H, BUN 76 H. CRE 0.93 WNL Height (Feet) 5 feet Height (Inches) 2.00 inches Weight (Pounds) 75 pounds -- stable since 02/25 Patient Weight 34.019 kg Body Mass Index 13.72 kg/m2 %IBW 68 [place]/Adjusted Body Weight 110#/50 kg Recent Weight Change Unable to verify Weight Status Emaciated Food Allergies Unable to verify Usual Diet At Home Unable to verify Skin Integrity Comment: Michele scale: 13; nursing notes indicate wound to anterior forehead, L/R arm wound, and posterior coccyx ecchymosis Estimated Energy Expenditure (kcals/day) 2105-2416 (30-35 kcal/kg IBW d/t acute illness, wt gain promotion) Estimated Protein Required (g/day) 50-75 (1-1.5 gm/kg IBW d/t renal Dz, acute illness, wt gain promotion) Estimated Fluid Required (l/day) Per physician d/t renal Dz Problem/Etiology/Signs/Symptoms Complicated GI function R/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 *No longer applicable Expected Outcomes/Goals - Monitor change of TF formula w/ goal of pt meeting >80% of estimated nutritional needs, labs trending WNL, normal GI function, and skin integrity/wt maintenance Dietitian Recommendations * Continue Vital AF 1.2 at 40 ml/hr (goal rate), Edgardo BID, Free Water Flush: per physician d/t renal Dz via NGT Provides: 1312 kcal/day, 77 gm protein/day, and 779 ml free water/day Meets: 87% of lower end of estimated caloric needs and 103% of upper end of estimated protein needs * Nursing please document daily administration of Edgardo BID Follow Up High Risk: F/U in 2-3 days
--- NOTE | 2022-03-03 16:36 | NUR ---
Dietitian Recommendations * Continue Vital AF 1.2 at 40 ml/hr (goal rate), Edgardo BID, Free Water Flush: per physician d/t renal Dz via NGT Provides: 1312 kcal/day, 77 gm protein/day, and 779 ml free water/day Meets: 87% of lower end of estimated caloric needs and 103% of upper end of estimated protein needs * Nursing please document daily administration of Edgardo BID LP, RD Please refer to Nutrition F/u for details.
--- NOTE | 2022-03-03 17:00 | NUR ---
picc line inserted into right upper arm, patient tolerated well, fluids infusing. placement confirmed on xray.
--- NOTE | 2022-03-03 17:10 | NUR ---
rt notes 1710 pt cannot titrate down from 15L NRB. Tried pt on Vapotherm 20L/60% FIO2. pt saturating 95%. will continue to monitor pt. RN Apurva aware.
[2022-03-03] MEDS: RIVAROXABAN 10 MG TABLET PO SCH (17:38)
--- NOTE | 2022-03-03 19:00 | NUR ---
Received patient lying in bed.monitoring analyst is in sinus rhythm.HR 79 BPS 107/49 TEMP 99.0 on vapotherm High flow oxygen @20L/min on 60% cares rendered
--- NOTE | 2022-03-03 19:30 | NUR ---
Dr loya reviewing patient.updated on status .pt maintaining feeds and spo2@96%
[2022-03-04] VITALS (22 sets, daily range): BP systolic 98–132
[2022-03-04] MEDS: INSULIN REGULAR, HUMAN 100 UNITS/ML, 10 ML VIAL (humuLIN R) SUBCUT PRN ×4 (00:18→18:49)
[2022-03-04] MEDS: 0.45% NACL 1,000 ML IV SCH (00:19)
[2022-03-04] MEDS ORDERED: PIPERACILLIN/TAZOBACTAM 2.25 GM VIAL IV ONE (04:15)
[2022-03-04] MEDS: PIPERACILLIN/TAZO 2.25G/DEX-IS 50 ML IV SCH ×6 (04:33→23:47)
--- NOTE | 2022-03-04 06:00 | NUR ---
Dr mendiola ordered a chest x ray ,ABGS,BMP. DR Zuniga ordered blood for lactate cmp, blood cultures and medication abbyn Had a warm bed bath and linen changed.medicated as ordered .vitals within normal range.awaits results for Blood cultures and MRSA (72 hrs) and morning labs.ivf in progress via right PICC line
[2022-03-04 06:31] LABS: BASOPHILS % (AUTO) 0.1 % (0.0-2.0); EOSINOPHILS % (AUTO) 0.1 % (0.0-4.0); LYMPHOCYTES # (AUTO) 0.5 K/uL (1.0-5.5); LYMPHOCYTES % (AUTO) 4.7 % (20.5-51.5); MEAN CORPUSCULAR HEMOGLOBIN 25 pg (27-31); MEAN CORPUSCULAR HGB CONC 32 % (32-36); MEAN CORPUSCULAR VOLUME 77 fL (79.0-98.0); MONOCYTES # (AUTO) 0.4 K/uL (0.0-1.0); MONOCYTES % (AUTO) 3.6 % (1.7-9.3); NEUTROPHILS # (AUTO) 10.7 K/uL (1.8-7.7); NEUTROPHILS % (AUTO) 91.5 % (40.0-70.0); PLATELET COUNT (AUTO) 309 K/uL (130-430); RED BLOOD CELL COUNT(AUTO) 2.73 MIL/uL (4.2-6.2); RED CELL DISTRIBUTION WIDTH 18.2 % (9.0-15.0); WHITE BLOOD COUNT (AUTO) 11.7 K/uL (4.8-10.8)
[2022-03-04 06:48] LABS: ANION GAP 3 (5-15); CALCIUM 10.4 mg/dL (8.4-11.0); CHLORIDE 110 mmol/L (98-107); CREATININE 0.97 mg/dL (0.55-1.30); GLUCOSE 312 mg/dL (70-99); POTASSIUM 3.9 mmol/L (3.5-5.1); SODIUM SERUM 143 mmol/L (136-145); UREA NITROGEN, BLOOD 85 mg/dL (8-21)
[2022-03-04 06:53] LABS: ALBUMIN 1.6 g/dL (3.4-4.8); ASPARTATE AMINOTRANSFERASE 10 U/L (10-37); C-REACTIVE PROTEIN QUANT 9.3 mg/dL (0-0.5); LACTATE DEHYDROGENASE 129 U/L (81-234); TOTAL BILIRUBIN 0.3 mg/dL (0.0-1.0)
--- NOTE | 2022-03-04 07:30 | NUR ---
PATIENT IN BED, HIGHFLOW 20L 60%, NONVERBAL, RIGHT SIDED WEAKNESS, NGT TO RUNNING VITAL AF 1.2 AT 40ML/HR, MONSIVAIS DRAINING CLEAR YELLOW URINE TO GRAVITY, EDEMA BILATERAL UPPER EXTREMITIES +1, BED REST, BED IN LOWEST LOCKED POSITION, CALL LIGHT WITHIN REACH, SAFETY MEASURES IN PLACE, WILL CONTINUE TO MONITOR.
[2022-03-04 07:33] LABS: HEMOGLOBIN 6.8 g/dL (12.0-16.0)
[2022-03-04 07:34] LABS: HEMATOCRIT 20.9 % (36-48)
--- NOTE | 2022-03-04 08:06 | NUR ---
SPOKE WITH DR ORTIZ AND NOTIFIED OF HGB 6.8 AND HCT 20.9, ORDERED 2 UNITS PRBC TO BE GIVEN STAT, CALLED AND NOTIFIED SON GLORIA ARELLANO AND HE GAVE VERBAL CONSENT FOR THE BLOOD TRANSFUSION, PRIMARY RN ROSA MARIA AND SECOND NURSE NEERU RECEIVED VERBAL CONSENT OVER THE TELEPHONE BY GLORIA ARELLANO.
[2022-03-04 08:07] LABS: ALANINE AMINOTRANSFERASE 3 U/L (12-78)
[2022-03-04] MEDS: DOCUSATE SODIUM 100 MG/10 ML UDC PO SCH ×2 (08:23→21:10)
[2022-03-04] MEDS: CHOLECALCIFEROL (VITAMIN D3) 2,000 UNIT TABLET PO SCH (08:23)
[2022-03-04] MEDS: METOPROLOL SUCCINATE 50 MG TAB.SR.24H (TOPROL XL) PO SCH (08:25)
[2022-03-04] MEDS: ASCORBIC ACID 500 MG TABLET PO SCH ×2 (08:26→21:10)
[2022-03-04] MEDS: amLODIPine BESYLATE 10 MG TABLET PO SCH (08:26)
[2022-03-04] MEDS: CARBIDOPA/LEVODOPA 25/100 MG TABLET PO SCH ×3 (08:27→21:10)
[2022-03-04] MEDS: DEXAMETHASONE SOD PHOSPHATE 10 MG/ML VIAL IVP SCH (08:28)
[2022-03-04] MEDS: METOPROLOL TARTRATE 25 MG TABLET GT SCH ×2 (09:04→21:10)
--- NOTE | 2022-03-04 13:38 | NUR ---
patient blood transfusion of pack red blood cells began. verified with second nurse. will monitor for adverse reactions.
--- NOTE | 2022-03-04 15:41 | NUR ---
RT NOTES 1540 Titrated fio2 to 50%, pt saturating 97%. will continue to monitor pt. RN Apurva aware.
[2022-03-04] MEDS: RIVAROXABAN 10 MG TABLET PO SCH (18:12)
--- NOTE | 2022-03-04 18:30 | NUR ---
all blood transfusions complete, no adverse effects noted, patient tolerated well.
--- NOTE | 2022-03-04 19:00 | NUR ---
Received pt resting in bed on oxygen via Vapotherm @ 50% -20L/min . feeding through the Naso gastric tube with vital 1.2 KAYLEE 40 mls /hr and 150mls flush Q6.Has a Alexandra catheter with clear yellow urine .vitals updated BPs 109/53 spo2-95%RR 23/min HR 70/min
[2022-03-05] VITALS (24 sets, daily range): BP systolic 88–138
--- NOTE | 2022-03-05 | NUR ---
Oral suction done and changed her position. Blood Glucose 310.due medication administered. Dr dotson review ,she made no changes
[2022-03-05] MEDS: 0.45% NACL 1,000 ML IV SCH (00:03)
[2022-03-05] MEDS: INSULIN REGULAR, HUMAN 100 UNITS/ML, 10 ML VIAL (humuLIN R) SUBCUT PRN ×5 (00:14→23:55)
--- NOTE | 2022-03-05 02:00 | NUR ---
FREQUENT ORAL SUCTION DONE and skin care .vitals are within normal range
[2022-03-05] MEDS: PIPERACILLIN/TAZO 2.25G/DEX-IS 50 ML IV SCH ×4 (05:38→23:41)
[2022-03-05 06:37] LABS: BASOPHILS % (AUTO) 0.1 % (0.0-2.0); HEMATOCRIT 34.5 % (36-48); HEMOGLOBIN 11.6 g/dL (12.0-16.0); LYMPHOCYTES # (AUTO) 0.7 K/uL (1.0-5.5); LYMPHOCYTES % (AUTO) 5.8 % (20.5-51.5); MEAN CORPUSCULAR HEMOGLOBIN 27 pg (27-31); MEAN CORPUSCULAR HGB CONC 34 % (32-36); MONOCYTES # (AUTO) 0.8 K/uL (0.0-1.0); MONOCYTES % (AUTO) 6.8 % (1.7-9.3); NEUTROPHILS # (AUTO) 10.7 K/uL (1.8-7.7); NEUTROPHILS % (AUTO) 87.3 % (40.0-70.0); PLATELET COUNT (AUTO) 246 K/uL (130-430); RED BLOOD CELL COUNT(AUTO) 4.28 MIL/uL (4.2-6.2); RED CELL DISTRIBUTION WIDTH 18.2 % (9.0-15.0); WHITE BLOOD COUNT (AUTO) 12.2 K/uL (4.8-10.8)
--- NOTE | 2022-03-05 06:58 | NUR ---
AM labs drawn and a chest x ray. bed bathed and linen changed..oral suction done/ vitals updated
[2022-03-05 07:05] LABS: ANION GAP 2 (5-15); CALCIUM 10.1 mg/dL (8.4-11.0); CHLORIDE 111 mmol/L (98-107); CREATININE 0.98 mg/dL (0.55-1.30); GLUCOSE 270 mg/dL (70-99); POTASSIUM 3.7 mmol/L (3.5-5.1); SODIUM SERUM 143 mmol/L (136-145); UREA NITROGEN, BLOOD 60 mg/dL (8-21)
[2022-03-05 07:11] LABS: ALBUMIN 1.5 g/dL (3.4-4.8); ASPARTATE AMINOTRANSFERASE 12 U/L (10-37); LACTATE DEHYDROGENASE 162 U/L (81-234); TOTAL BILIRUBIN 0.4 mg/dL (0.0-1.0)
--- NOTE | 2022-03-05 07:30 | NUR ---
PATIENT IN BED, HIGHFLOW 20L 50%, NONVERBAL, RIGHT SIDED WEAKNESS, NGT TO RUNNING VITAL AF 1.2 AT 40ML/HR, MONSIVAIS DRAINING CLEAR YELLOW URINE TO GRAVITY, EDEMA BILATERAL UPPER EXTREMITIES +1, FACIAL SWELLING NOTED, BED REST, BED IN LOWEST LOCKED POSITION, CALL LIGHT WITHIN REACH, SAFETY MEASURES IN PLACE, WILL CONTINUE TO MONITOR.
[2022-03-05 08:24] LABS: ALANINE AMINOTRANSFERASE 6 U/L (12-78)
[2022-03-05] MEDS: ASCORBIC ACID 500 MG TABLET PO SCH ×2 (09:46→21:27)
[2022-03-05] MEDS: CHOLECALCIFEROL (VITAMIN D3) 2,000 UNIT TABLET PO SCH (09:46)
[2022-03-05] MEDS: DOCUSATE SODIUM 100 MG/10 ML UDC PO SCH ×2 (09:46→21:00)
[2022-03-05] MEDS: METOPROLOL TARTRATE 25 MG TABLET GT SCH ×2 (09:47→21:30)
[2022-03-05] MEDS: amLODIPine BESYLATE 10 MG TABLET PO SCH (09:47)
[2022-03-05] MEDS: DEXAMETHASONE SOD PHOSPHATE 10 MG/ML VIAL IVP SCH (09:48)
[2022-03-05] MEDS: CARBIDOPA/LEVODOPA 25/100 MG TABLET PO SCH ×3 (09:48→21:27)
[2022-03-05 12:06] LABS: MEAN CORPUSCULAR VOLUME 81 fL (79.0-98.0)
[2022-03-05] MEDS: VANCOMYCIN HCL 500 MG in NS 100 ML IV SCH (16:26)
[2022-03-05] MEDS ORDERED: ALBUMIN HUMAN 25% 100 ML IV ONE ×2 (17:30→17:37)
[2022-03-05] MEDS: RIVAROXABAN 10 MG TABLET PO SCH (18:00)
--- NOTE | 2022-03-05 18:12 | NUR ---
xarelto not stocked in bin or pyxis by pharmacy, notified supervisor industrial garment and awaiting medication, can not give medication until dose is provided.
--- NOTE | 2022-03-05 19:00 | NUR ---
PT RESTING IN BED ORIENTED TO SELF.MOVES RIGHT HAND ,WEAKNESS RIGHT HAND .PT NEEDS FREQUENT ORAL SUCTION
--- NOTE | 2022-03-05 23:00 | NUR ---
Dr sheets review .updated on pt. continue with current rx
[2022-03-06] VITALS (25 sets, daily range): BP systolic 98–144
--- NOTE | 2022-03-06 | NUR ---
POSITIONED TO LEFT SIDE .CARES GIVEN.I&O maintained .Blood sugar done .vitals updated
[2022-03-06] MEDS: NACL 0.9% 1,000 ML IV SCH ×4 (02:20→18:05)
[2022-03-06] MEDS: PIPERACILLIN/TAZO 2.25G/DEX-IS 50 ML IV SCH ×3 (06:12→17:07)
[2022-03-06] MEDS: INSULIN REGULAR, HUMAN 100 UNITS/ML, 10 ML VIAL (humuLIN R) SUBCUT PRN ×3 (06:26→17:17)
--- NOTE | 2022-03-06 06:30 | NUR ---
Awaits labs results
[2022-03-06 08:05] LABS: EOSINOPHILS % (AUTO) 0.1 % (0.0-4.0); HEMATOCRIT 30.7 % (36-48); HEMOGLOBIN 10.2 g/dL (12.0-16.0); LYMPHOCYTES # (AUTO) 0.7 K/uL (1.0-5.5); LYMPHOCYTES % (AUTO) 6.4 % (20.5-51.5); MEAN CORPUSCULAR HEMOGLOBIN 27 pg (27-31); MEAN CORPUSCULAR HGB CONC 33 % (32-36); MEAN CORPUSCULAR VOLUME 82 fL (79.0-98.0); MONOCYTES # (AUTO) 0.6 K/uL (0.0-1.0); MONOCYTES % (AUTO) 5.9 % (1.7-9.3); NEUTROPHILS # (AUTO) 9.2 K/uL (1.8-7.7); NEUTROPHILS % (AUTO) 87.6 % (40.0-70.0); PLATELET COUNT (AUTO) 209 K/uL (130-430); RED BLOOD CELL COUNT(AUTO) 3.75 MIL/uL (4.2-6.2); RED CELL DISTRIBUTION WIDTH 18.4 % (9.0-15.0); WHITE BLOOD COUNT (AUTO) 10.4 K/uL (4.8-10.8)
[2022-03-06] MEDS: CARBIDOPA/LEVODOPA 25/100 MG TABLET PO SCH ×3 (08:40→20:26)
[2022-03-06] MEDS: CHOLECALCIFEROL (VITAMIN D3) 2,000 UNIT TABLET PO SCH (08:40)
[2022-03-06] MEDS: METOPROLOL TARTRATE 25 MG TABLET GT SCH ×2 (08:41→20:26)
[2022-03-06] MEDS: ASCORBIC ACID 500 MG TABLET PO SCH ×2 (08:41→20:27)
[2022-03-06] MEDS: DOCUSATE SODIUM 100 MG/10 ML UDC PO SCH ×2 (08:43→20:27)
[2022-03-06] MEDS: amLODIPine BESYLATE 10 MG TABLET PO SCH (08:43)
[2022-03-06 09:03] LABS: ANION GAP 2 (5-15); CALCIUM 10.2 mg/dL (8.4-11.0); CHLORIDE 110 mmol/L (98-107); GLUCOSE 279 mg/dL (70-99); POTASSIUM 3.7 mmol/L (3.5-5.1); SODIUM SERUM 140 mmol/L (136-145); UREA NITROGEN, BLOOD 41 mg/dL (8-21)
--- NOTE | 2022-03-06 10:00 | NUR ---
SCHEDULED MEDS GIVEN AND TOLERATED WELL. PT HAD LARGE LOOSE STOOL. PT GIVEN PARTIAL BED BATH AND LINEN AND GOWN CHANGE, MONSIVAIS CATH CARE AND ORAL CARE. ASPIRATION PRECAUTIONS IN PLACE, NO RESIDUAL NOTED REGARDING TF.
--- NOTE | 2022-03-06 13:30 | NUR ---
PT HAD SECOND BM, PT GIVEN PERINEAL AND MONSIVAIS CATH CARE, OPTIFOAM TO SACRAL SITE CHANGED. PT TOLERATED ACTIVITY WELL.
--- NOTE | 2022-03-06 15:17 | NUR ---
DR. HU MET WITH AND ASSESSED PT. PT IS TO HAVE PCR AND NS IVF TO BE CHANGED TO 70ML/HOUR. ORDERS CARRIED OUT.
--- NOTE | 2022-03-06 16:00 | NUR ---
RT NOTES Pt took O2 off, sat was 85% on room air. Improved as soon as O2 was back on. RN aware.
[2022-03-06] MEDS: VANCOMYCIN HCL 500 MG in NS 100 ML IV SCH (17:07)
[2022-03-06] MEDS: RIVAROXABAN 10 MG TABLET PO SCH (17:08)
--- NOTE | 2022-03-06 19:05 | NUR ---
OPENING NOTES: RECEIVED BEDSIDE REPORT FROM DEYANIRA, PATIENT IS A&0 X1 AND ONLY RESPONDS TO NAME. PATIENT OPENS HER EYES WHEN HER NAME IS CALLED BUT DOES NOT TRACK. PN HIGH FLOW FIO2 50% AND 20L. NG TUBE IN LEFT NARE WITH VITAL AF RUNNING AT 40. ERIKA PICC WITH NS RUNNING AT 70. MONSIVAIS DRAINAGE TO GRAVITY, HAD 2 LARGE LOOSE BM TODAY. PATIENT HAS A LEFT ARM SKIN TEAR AND REDNESS ON THE SACRAL BOTH COVERED WITH FOAM DRESSING. BED IS AT THE LOWEST LEVEL, BRAKES ARE LOCKED, SUCTION IS WORKING, 3 SIDE RAILS UP, AND CALL LIGHT WITHIN REACH.
--- NOTE | 2022-03-06 19:09 | NUR ---
ENDORSED PT TO HARISH GARCÍA. ALL QUESTIONS AND CONCERNS ADDRESSED.
[2022-03-07] VITALS (24 sets, daily range): BP systolic 101–146
[2022-03-07] MEDS: PIPERACILLIN/TAZO 2.25G/DEX-IS 50 ML IV SCH ×5 (00:24→23:01)
[2022-03-07] MEDS: INSULIN REGULAR, HUMAN 100 UNITS/ML, 10 ML VIAL (humuLIN R) SUBCUT PRN ×3 (00:37→23:30)
[2022-03-07 07:23] LABS: ALANINE AMINOTRANSFERASE 3 U/L (12-78); ALBUMIN 1.6 g/dL (3.4-4.8); ANION GAP 5 (5-15); ASPARTATE AMINOTRANSFERASE 13 U/L (10-37); CALCIUM 9.6 mg/dL (8.4-11.0); CHLORIDE 111 mmol/L (98-107); CREATININE 0.63 mg/dL (0.55-1.30); GLUCOSE 225 mg/dL (70-99); POTASSIUM 3.4 mmol/L (3.5-5.1); SODIUM SERUM 142 mmol/L (136-145); TOTAL BILIRUBIN 0.3 mg/dL (0.0-1.0); UREA NITROGEN, BLOOD 37 mg/dL (8-21)
[2022-03-07 07:31] LABS: EOSINOPHILS # (AUTO) 0.1 K/uL (0.0-0.4); EOSINOPHILS % (AUTO) 0.9 % (0.0-4.0); HEMATOCRIT 31.4 % (36-48); HEMOGLOBIN 10.6 g/dL (12.0-16.0); LYMPHOCYTES # (AUTO) 0.7 K/uL (1.0-5.5); LYMPHOCYTES % (AUTO) 7.2 % (20.5-51.5); MEAN CORPUSCULAR HEMOGLOBIN 28 pg (27-31); MEAN CORPUSCULAR HGB CONC 34 % (32-36); MEAN CORPUSCULAR VOLUME 83 fL (79.0-98.0); MONOCYTES # (AUTO) 0.5 K/uL (0.0-1.0); MONOCYTES % (AUTO) 5.5 % (1.7-9.3); NEUTROPHILS # (AUTO) 8.2 K/uL (1.8-7.7); NEUTROPHILS % (AUTO) 86.4 % (40.0-70.0); PLATELET COUNT (AUTO) 201 K/uL (130-430); RED BLOOD CELL COUNT(AUTO) 3.79 MIL/uL (4.2-6.2); RED CELL DISTRIBUTION WIDTH 18.3 % (9.0-15.0); WHITE BLOOD COUNT (AUTO) 9.5 K/uL (4.8-10.8)
[2022-03-07] MEDS: DOCUSATE SODIUM 100 MG/10 ML UDC PO SCH ×2 (07:50→20:22)
[2022-03-07] MEDS: ASCORBIC ACID 500 MG TABLET PO SCH ×2 (08:29→20:21)
[2022-03-07] MEDS: CARBIDOPA/LEVODOPA 25/100 MG TABLET PO SCH ×3 (08:29→20:21)
[2022-03-07] MEDS: amLODIPine BESYLATE 10 MG TABLET PO SCH (08:30)
[2022-03-07] MEDS: METOPROLOL TARTRATE 25 MG TABLET GT SCH ×2 (08:30→20:21)
[2022-03-07] MEDS: CHOLECALCIFEROL (VITAMIN D3) 2,000 UNIT TABLET PO SCH (08:30)
--- NOTE | 2022-03-07 08:45 | NUR ---
O2 REPLACED HIGH FLOW INTO OXYMIZER ORDERED BY DR GARCIA.
--- NOTE | 2022-03-07 09:15 | NUR ---
O2 SATURATION READING RANGING 94% TO 96%. AWARE.
[2022-03-07] MEDS: NACL 0.9% 1,000 ML IV SCH (10:09)
--- NOTE | 2022-03-07 11:50 | NUR ---
FAMILY RETURNED THE CALL OF PT'S SON GLORIA. UPDATED HIM ON HER STATUS. VACCINATION INFORMATION OBTAINED. PT DID NOT HAVE COVID VACCINE, BUT HAD FLU SHOT.
--- NOTE | 2022-03-07 14:15 | NUR ---
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 Primary RN reported that pt is tolerating TF well; pt has a DTI to coccyx and will put in a wound care consult. Per EMR review, Michele score 11, pt w/ erythema to posterior coccyx and L. R. arm wound; pending wound care consult; las BM 03/07; TF formula Vital AF 03/07, TF rate 40 ml/hr 03/07, GRV: 20 ml 03/07; pt on 6L O2 via oxymizer. TF is appropriate. Current Diet Order/Nutrition Support: Vital AF 1.2 at 40 ml/hr (goal rate), Edgardo BID, Free Water Flush: 250 ml Q4H via NGT x3 days Patient/Significant Other Unable To Verbalize Education Provided Not Indicated Pertinent Medications: SSI, colace, Vit D3, VIT C, zinc, xarelto, decadron, vancomycin, piperacillin/tazobactam, Lopressor, glucophage Pertinent Labs: K 3.4 L, BUN 37 H, Cr 0.63 WNL, BG 225 H, POC BG 167-277 H Height (Feet) 5 feet Height (Inches) 2.00 inches Weight (Pounds) 75 pounds -- stable since 02/25 Patient Weight 34.019 kg Body Mass Index 13.72 kg/m2 %IBW 68 [place]/Adjusted Body Weight 110#/50 kg Recent Weight Change Unable to verify Weight Status Emaciated Food Allergies Unable to verify Usual Diet At Home Unable to verify Skin Integrity Comment: Michele scale: 13; nursing notes indicate wound to anterior forehead, L/R arm wound, and posterior coccyx ecchymosis Estimated Energy Expenditure (kcals/day) 2343-5928 (30-35 kcal/kg IBW d/t acute illness, wt gain promotion) Estimated Protein Required (g/day) 50-75 (1-1.5 gm/kg IBW d/t renal Dz, acute illness, wt gain promotion) Estimated Fluid Required (l/day) Per physician d/t renal Dz Problem/Etiology/Signs/Symptoms Complicated GI function R/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 *No longer applicable Expected Outcomes/Goals - Monitor tolerance of TF formula w/ goal of pt meeting >80% of estimated nutritional needs, labs trending WNL, normal GI function, and skin integrity/wt maintenance Dietitian Recommendations * Continue Vital AF 1.2 at 40 ml/hr (goal rate), Edgardo BID, Free Water Flush: per physician d/t renal Dz via NGT Provides: 1312 kcal/day, 77 gm protein/day, and 779 ml free water/day Meets: 87% of lower end of estimated caloric needs and 103% of upper end of estimated protein needs * Nursing please document daily administration of Edgardo BID Follow Up High Risk: F/U in 2-3 days
--- NOTE | 2022-03-07 14:16 | NUR ---
Dietitian Recommendations * Continue Vital AF 1.2 at 40 ml/hr (goal rate), Edgardo BID, Free Water Flush: per physician d/t renal Dz via NGT Provides: 1312 kcal/day, 77 gm protein/day, and 779 ml free water/day Meets: 87% of lower end of estimated caloric needs and 103% of upper end of estimated protein needs * Nursing please document daily administration of Edgardo BID Please refer to Nutrition F/U for details.
--- NOTE | 2022-03-07 15:54 | NUR ---
CALLED [facility] FOR BED ERROR DIALED: [phone] NO ANSWER LEFT VOICEMAIL ABOUT BED HAVING "AIR CONTROL BOARD SYSTEM ERROR"
--- NOTE | 2022-03-07 16:23 | NUR ---
[facility] CALLED BACK WILL RETURN TONIGHT TO EVALUATE BED AND SEE IF NEEDED TO REPLACE
[2022-03-07] MEDS: VANCOMYCIN HCL 500 MG in NS 100 ML IV SCH (17:53)
[2022-03-07] MEDS: RIVAROXABAN 10 MG TABLET PO SCH (17:53)
--- NOTE | 2022-03-07 18:45 | NUR ---
FAMILY PT'S DAUGHTER MARIANNA ON THE PHONE. UPDATE ON THE STATUS GIVEN.
[2022-03-07] MEDS ORDERED: POTASSIUM CHLORIDE 20 MEQ/PKT PACKET PO ONE (19:15)
--- NOTE | 2022-03-07 19:20 | NUR ---
OPENING NOTES: RECEIVED BEDSIDE REPORT FROM VICENTE. PATIENT IS A&O X1 WILL OPEN EYES TO HER NAME BUT DOES NOT TRACK. PATIENT IS ON OXYMIZER AT 6L. PATIENT HAS A ERIKA PICC WITH NS RUNNING AT 70, MONSIVAIS CATHETER IS PATENT, COCCYX REDNESS COVERED WITH FOAM DRESSING. PATIENT HAS HAD 2 BM BOTH DIARRHEA, NG TUBE IN THE LEFT NARE WITH VITAL AF 1.2 RUNNING AT 40 ML/HR. OCR CAME BACK POSITIVE FOR COVID. BED IS AT THE LOWEST LEVEL, BRAKES ARE LOCKED, SUCTION IS WORKING, 3 SIDE RAILS UP, CALL LIGHT WITHIN REACH.
[2022-03-08] VITALS (23 sets, daily range): BP systolic 114–142
[2022-03-08] MEDS: NACL 0.9% 1,000 ML IV SCH ×2 (01:51→12:35)
[2022-03-08] MEDS: PIPERACILLIN/TAZO 2.25G/DEX-IS 50 ML IV SCH ×3 (05:35→18:16)
[2022-03-08] MEDS: INSULIN REGULAR, HUMAN 100 UNITS/ML, 10 ML VIAL (humuLIN R) SUBCUT PRN ×2 (05:44→12:35)
--- NOTE | 2022-03-08 05:56 | NUR ---
PATIENT HAD 3 VERY DARK GREEN ALMOST BLACK DIARRHEA THAT WERE LARGE. BEDDING CHANGED AND NEW CHUCKS. GAVE PATIENT A BED BATH.
[2022-03-08 06:44] LABS: ANION GAP 1 (5-15); CALCIUM 10.2 mg/dL (8.4-11.0); CHLORIDE 112 mmol/L (98-107); CREATININE 0.64 mg/dL (0.55-1.30); GLUCOSE 259 mg/dL (70-99); POTASSIUM 4.1 mmol/L (3.5-5.1); SODIUM SERUM 142 mmol/L (136-145); UREA NITROGEN, BLOOD 50 mg/dL (8-21)
[2022-03-08 06:48] LABS: BASOPHILS % (AUTO) 0.4 % (0.0-2.0); EOSINOPHILS % (AUTO) 0.4 % (0.0-4.0); HEMATOCRIT 28.9 % (36-48); HEMOGLOBIN 9.6 g/dL (12.0-16.0); LYMPHOCYTES # (AUTO) 0.6 K/uL (1.0-5.5); LYMPHOCYTES % (AUTO) 7.1 % (20.5-51.5); MEAN CORPUSCULAR HEMOGLOBIN 28 pg (27-31); MEAN CORPUSCULAR HGB CONC 33 % (32-36); MEAN CORPUSCULAR VOLUME 84 fL (79.0-98.0); MONOCYTES # (AUTO) 0.5 K/uL (0.0-1.0); MONOCYTES % (AUTO) 5.7 % (1.7-9.3); NEUTROPHILS # (AUTO) 7.6 K/uL (1.8-7.7); NEUTROPHILS % (AUTO) 86.4 % (40.0-70.0); PLATELET COUNT (AUTO) 198 K/uL (130-430); RED BLOOD CELL COUNT(AUTO) 3.44 MIL/uL (4.2-6.2); RED CELL DISTRIBUTION WIDTH 18.7 % (9.0-15.0); WHITE BLOOD COUNT (AUTO) 8.8 K/uL (4.8-10.8)
[2022-03-08] MEDS: DOCUSATE SODIUM 100 MG/10 ML UDC PO SCH ×2 (09:00→20:51)
[2022-03-08] MEDS: METOPROLOL TARTRATE 25 MG TABLET GT SCH ×2 (10:04→20:51)
[2022-03-08] MEDS: CARBIDOPA/LEVODOPA 25/100 MG TABLET PO SCH ×3 (10:04→20:51)
[2022-03-08] MEDS: amLODIPine BESYLATE 10 MG TABLET PO SCH (10:05)
[2022-03-08] MEDS: ASCORBIC ACID 500 MG TABLET PO SCH ×2 (10:05→20:51)
[2022-03-08] MEDS: CHOLECALCIFEROL (VITAMIN D3) 2,000 UNIT TABLET PO SCH (10:05)
[2022-03-08] MEDS: RIVAROXABAN 10 MG TABLET PO SCH (18:17)
[2022-03-08] MEDS: VANCOMYCIN HCL 500 MG in NS 100 ML IV SCH (18:17)
--- NOTE | 2022-03-08 19:10 | NUR ---
OPENING NOTES: RECEIVED BEDSIDE REPORT FROM ADRIAN. PATIENT IS A&O X1 WILL FOLLOW COMMANDS FOR SQUEEZING HAND BUT DOES NOT TRACK OR DO ANYTHING ELSE. NC 2 L, VITAL AF 1.2 RUNNING AT 40 WITH FWF OF 250 Q4H. MONSIVAIS CATHETER THAT IS PATENT AND A FLEXSEAL, DAY SHIFT GOT 300 ML IN THE FLEXSEAL. PATIENT HAS A ERIKA PICC. BED IS AT THE LOWEST LEVEL, CALL LIGHT IS WITHIN REACH, BRAKES ARE LOCKED, AND SUCTION IS WORKING.
--- NOTE | 2022-03-08 21:30 | NUR ---
TRANSFERRED PATIENT TO ROOM 126 A. GAVE REPORT TO ABIEL, ANSWERED ALL QUESTIONS AT BEDSIDE.
[2022-03-09] VITALS (10 sets, daily range): BP systolic 108–147
[2022-03-09] MEDS: PIPERACILLIN/TAZO 2.25G/DEX-IS 50 ML IV SCH ×4 (00:33→19:06)
--- NOTE | 2022-03-09 01:30 | NUR ---
ICU transfer 126 bed A ISOLATION COVID 19 , patient awake NG TUBE RT NARES patient non verbal on 02 NC @ 2 LPM Respirations Remain Regular also unlabored , position change tolerated / .
--- NOTE | 2022-03-09 04:02 | NUR ---
Hourly Rounding patient Resting HOB elevated kept clean also dry as needed Reposition & turn also tolerated / .
--- NOTE | 2022-03-09 05:38 | NUR ---
wound care sacral area , left & right arms dry scabs kept clean also dry as needed position change tolerated off loading with pillows comfort measures tolerated .
[2022-03-09] MEDS: INSULIN REGULAR, HUMAN 100 UNITS/ML, 10 ML VIAL (humuLIN R) SUBCUT PRN ×3 (06:18→17:17)
[2022-03-09] MEDS: NACL 0.9% 1,000 ML IV SCH ×2 (06:20→16:42)
[2022-03-09 06:47] LABS: BASOPHILS % (AUTO) 0.7 % (0.0-2.0); EOSINOPHILS # (AUTO) 0.1 K/uL (0.0-0.4); EOSINOPHILS % (AUTO) 0.8 % (0.0-4.0); HEMATOCRIT 23.1 % (36-48); HEMOGLOBIN 7.6 g/dL (12.0-16.0); LYMPHOCYTES # (AUTO) 0.6 K/uL (1.0-5.5); LYMPHOCYTES % (AUTO) 7.5 % (20.5-51.5); MEAN CORPUSCULAR HEMOGLOBIN 28 pg (27-31); MEAN CORPUSCULAR HGB CONC 33 % (32-36); MEAN CORPUSCULAR VOLUME 84 fL (79.0-98.0); MONOCYTES # (AUTO) 0.4 K/uL (0.0-1.0); NEUTROPHILS # (AUTO) 6.4 K/uL (1.8-7.7); PLATELET COUNT (AUTO) 165 K/uL (130-430); RED BLOOD CELL COUNT(AUTO) 2.74 MIL/uL (4.2-6.2); RED CELL DISTRIBUTION WIDTH 19.2 % (9.0-15.0); WHITE BLOOD COUNT (AUTO) 7.4 K/uL (4.8-10.8)
--- NOTE | 2022-03-09 07:40 | NUR ---
Opening Notes Patient is laying in bed with eyes closed. A/O x 0. Does not respond to name, responds to stimuli. Vitals as charted. No apparent distress noted. Call light within reach. Safety and fall precautions in place. All needs met.
[2022-03-09 08:12] LABS: ANION GAP 4 (5-15); CHLORIDE 113 mmol/L (98-107); CREATININE 0.63 mg/dL (0.55-1.30); GLUCOSE 275 mg/dL (70-99); POTASSIUM 3.9 mmol/L (3.5-5.1); SODIUM SERUM 144 mmol/L (136-145); UREA NITROGEN, BLOOD 47 mg/dL (8-21)
[2022-03-09] MEDS: CARBIDOPA/LEVODOPA 25/100 MG TABLET PO SCH ×3 (08:12→21:34)
[2022-03-09] MEDS: DOCUSATE SODIUM 100 MG/10 ML UDC PO SCH ×2 (08:12→21:33)
[2022-03-09] MEDS: ASCORBIC ACID 500 MG TABLET PO SCH ×2 (08:12→21:34)
[2022-03-09] MEDS: CHOLECALCIFEROL (VITAMIN D3) 2,000 UNIT TABLET PO SCH (08:12)
[2022-03-09] MEDS: amLODIPine BESYLATE 10 MG TABLET PO SCH (08:19)
[2022-03-09] MEDS: METOPROLOL TARTRATE 25 MG TABLET GT SCH ×2 (08:20→21:34)
--- NOTE | 2022-03-09 10:58 | NUR ---
Note Spoke with patient's caregiver. Provided update on patient's condition. All questions answered.
--- NOTE | 2022-03-09 13:14 | NUR ---
Dr. Zuniga Spoke with Dr. Zuniga. New orders to d/c isolation and follow infection control protocol.
--- NOTE | 2022-03-09 13:50 | NUR ---
Infection Control Spoke with Ericka from infection control, per hospital policy celio to d/c patient from COVID isolation. Spoke with Yris MOREIRA, charge nurse celio to d/c patient from COVID isolation.
--- NOTE | 2022-03-09 14:00 | NUR ---
Note Spoke with Cassi, patient caregiver, to inform her she can now visit since patient is no longer under COVID isolation.
--- NOTE | 2022-03-09 15:29 | NUR ---
ST EVALUATION COMPLETED. ST TX NOT INDICATED AT THIS TIME. RECOMMEND CONTINUE NPO WITH ALTERNATIVE MEANS OF NUTRITION DUE TO POOR SWALLOW FUNCTION AND SAFETY.
[2022-03-09] MEDS: VANCOMYCIN HCL 500 MG in NS 100 ML IV SCH (16:42)
--- NOTE | 2022-03-09 17:08 | NUR ---
Note Paged Dr. loya regarding patient's desaturation status change.
--- NOTE | 2022-03-09 17:33 | NUR ---
Note Spoke with Dr. Trejo regarding patient status. New orders received and entered.
[2022-03-09] MEDS ORDERED: IPRATROPIUM/ALBUTEROL SULFATE 3 ML AMPUL.NEB (DUONEB) INH PRN (17:45)
--- NOTE | 2022-03-09 18:00 | NUR ---
Note Patient transferred to ICU via gurney. Endorsed care to MINING CAPTAINHARISH Pierre
[2022-03-09] MEDS: levETIRAcetam 500 MG TABLET PO SCH (21:33)
[2022-03-10] VITALS (37 sets, daily range): BP systolic 23–160
[2022-03-10] MEDS: INSULIN REGULAR, HUMAN 100 UNITS/ML, 10 ML VIAL (humuLIN R) SUBCUT PRN ×3 (00:19→19:31)
[2022-03-10] MEDS: PIPERACILLIN/TAZO 2.25G/DEX-IS 50 ML IV SCH ×4 (00:31→19:42)
--- NOTE | 2022-03-10 02:00 | NUR ---
cares given .positioned to left side
--- NOTE | 2022-03-10 06:00 | NUR ---
a CHEST X RAY TAKEN AND BLOOD WORKS
--- NOTE | 2022-03-10 06:00 | NUR ---
A CHEST XRAY DONE AND BLOOD WORKS
[2022-03-10 06:46] LABS: ALANINE AMINOTRANSFERASE 3 U/L (12-78); ALBUMIN 1.5 g/dL (3.4-4.8); ANION GAP 6 (5-15); ASPARTATE AMINOTRANSFERASE 12 U/L (10-37); CALCIUM 9.6 mg/dL (8.4-11.0); CHLORIDE 119 mmol/L (98-107); CREATININE 0.81 mg/dL (0.55-1.30); GLUCOSE 222 mg/dL (70-99); PHOSPHORUS 2.4 mg/dL (2.7-4.5); POTASSIUM 3.1 mmol/L (3.5-5.1); SODIUM SERUM 151 mmol/L (136-145); TOTAL BILIRUBIN 0.3 mg/dL (0.0-1.0); UREA NITROGEN, BLOOD 48 mg/dL (8-21)
[2022-03-10] MEDS: IPRATROPIUM/ALBUTEROL SULFATE 3 ML AMPUL.NEB (DUONEB) INH SCH (07:00)
--- NOTE | 2022-03-10 07:47 | NUR ---
RECEIVED ON VENT .TRACH SUCTIONED PRN ,ON DOBUTAMINE 22MCG/KG/MIN VA A LEFT UPPER HAND PICC LINE. DOPAMINE @3MCG/KG/MIN. Infusion 5% DEX @40MLS /H. vital 1.2 feed in progress via a Peg tube.vitals monitored/cares given
[2022-03-10 07:52] LABS: BASOPHILS # (AUTO) 0.1 K/uL (0.0-0.2); BASOPHILS % (AUTO) 1.6 % (0.0-2.0); LYMPHOCYTES # (AUTO) 0.6 K/uL (1.0-5.5); LYMPHOCYTES % (AUTO) 7.4 % (20.5-51.5); MEAN CORPUSCULAR HEMOGLOBIN 28 pg (27-31); MEAN CORPUSCULAR HGB CONC 33 % (32-36); MEAN CORPUSCULAR VOLUME 85 fL (79.0-98.0); MONOCYTES # (AUTO) 0.3 K/uL (0.0-1.0); MONOCYTES % (AUTO) 4.3 % (1.7-9.3); NEUTROPHILS # (AUTO) 6.5 K/uL (1.8-7.7); NEUTROPHILS % (AUTO) 86.7 % (40.0-70.0); PLATELET COUNT (AUTO) 151 K/uL (130-430); RED BLOOD CELL COUNT(AUTO) 2.19 MIL/uL (4.2-6.2); RED CELL DISTRIBUTION WIDTH 19.8 % (9.0-15.0); WHITE BLOOD COUNT (AUTO) 7.5 K/uL (4.8-10.8)
--- NOTE | 2022-03-10 07:53 | NUR ---
Received patient who is currently on 5 liters and 25% highflow via nasal cannula saturation 96%. Bilateral lung sounds rales and rhonchi and diminished at the bases. She presents stable vital signs. She doesn't appear to be in distress or in pain at this time.
[2022-03-10] MEDS ORDERED: NOREPINEPHRINE 4 MG/4 ML VIAL IV ONE (08:12)
[2022-03-10 08:31] LABS: HEMOGLOBIN 6.1 g/dL (12.0-16.0)
[2022-03-10 08:32] LABS: HEMATOCRIT 18.6 % (36-48)
[2022-03-10] MEDS ORDERED: PANTOPRAZOLE SODIUM 40 MG/VIAL (PROTONIX) IVP SCH (09:00)
[2022-03-10] MEDS: METOPROLOL TARTRATE 25 MG TABLET GT SCH ×2 (09:00→20:38)
--- NOTE | 2022-03-10 09:00 | NUR ---
Called Dr. Galarza with a consult, spoke with spoke with Isis from the exchange
[2022-03-10] MEDS: ASCORBIC ACID 500 MG TABLET PO SCH ×2 (09:15→20:39)
[2022-03-10] MEDS: DOCUSATE SODIUM 100 MG/10 ML UDC PO SCH ×2 (09:15→20:38)
[2022-03-10] MEDS: CARBIDOPA/LEVODOPA 25/100 MG TABLET PO SCH ×3 (09:15→20:39)
[2022-03-10] MEDS: levETIRAcetam 500 MG TABLET PO SCH (09:15)
[2022-03-10] MEDS: CHOLECALCIFEROL (VITAMIN D3) 2,000 UNIT TABLET PO SCH (09:15)
[2022-03-10] MEDS: PANTOPRAZOLE SODIUM 40 MG in NS 50 ML IV SCH ×3 (10:00→21:50)
[2022-03-10] MEDS ORDERED: POTASSIUM CHLORIDE 20 MEQ in NS 250 ML IV ONE (10:00)
--- NOTE | 2022-03-10 10:00 | NUR ---
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 Primary RN reported that pt transferred back to ICU overnight d/t hypotension and low Hgb. He reported that he suctioned pt's oral airway prior to transfer to ICU and discovered coffee-ground emesis. Pt received 2 units of PRBC overnight and was seen by GI this morning. Pt is now on levophed, and TF is being held d/t GI bleed. COVID isolation back in place for now. Per EMR review, pt was seen by for swallow eval yesterday, 03/09, at which time, rec for NPO w/ alternative means of nutrition d/t poor swallow function and safety; pt has NGT to suction; pt is on 5 L O2 via NC; Vital AF 1.2 was infusing at 40 ml/hr overnight 03/10; GRV: 30 ml 03/10; R nares NGT noted; LBM x3 03/08. Pt is not yet meeting optimal nutritional needs. Current Diet Order/Nutrition Support: Vital AF 1.2 at 40 ml/hr (goal rate), Edgardo BID, Free Water Flush: 250ML Q4H via NGT x6 days Patient/Significant Other Unable To Verbalize Education Provided Not Indicated Pertinent Medications: keppra, piperacillin/tazobactam, lopressor, SSI, colace, VIT D3, VIT C, zinc Pertinent Labs: K 3.1 L, BUN 48 H, BG 222 H, POC BG 196 H, ALB 1.5 L, WBC 7.5 WNL, H/H 6.8 L/20.7 L Height (Feet) 5 feet Height (Inches) 2.00 inches Weight (Pounds) 75 pounds -- stable since 02/25 Patient Weight 34.019 kg Body Mass Index 13.72 kg/m2 %IBW 68 [place]/Adjusted Body Weight 110#/50 kg Recent Weight Change Unable to verify Weight Status Emaciated Food Allergies Unable to verify Usual Diet At Home Unable to verify Skin Integrity Comment: Michele scale: 10; nursing notes indicate L knee dry scab, L/R arm skin tears; and posterior coccyx erythema Estimated Energy Expenditure (kcals/day) 8056-6723 (30-35 kcal/kg IBW d/t acute illness, wt gain promotion) Estimated Protein Required (g/day) 50-75 (1-1.5 gm/kg IBW d/t renal Dz, acute illness, wt gain promotion) Estimated Fluid Required (l/day) Per physician d/t renal Dz Problem/Etiology/Signs/Symptoms Complicated GI function R/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 *No longer applicable Inadequate EN support R/T recent GI bleed AEB low H/H, PRBC repletion therapy, and GI workup. *New Expected Outcomes/Goals - Monitor tolerance of TF formula w/ goal of pt meeting >80% of estimated nutritional needs, labs trending WNL, normal GI function, and skin integrity/wt maintenance Dietitian Recommendations * If/when medically appropriate, resume Vital AF 1.2 at 40 ml/hr (goal rate), Edgardo BID, Free Water Flush: 250ML Q4H (per physician d/t renal Dz) via NGT Provides: 1312 kcal/day, 77 gm protein/day, and 2279 ml free water/day Meets: 87% of lower end of estimated caloric needs and 103% of upper end of estimated protein needs * Nursing please document daily administration of Edgardo BID Follow Up High Risk: F/U in 2-3 days Addendum: 03/10/22 at [address] SARS-CoV-2 Ag (Rapid) Positive 02/23; COVID-19 (JOSE) Positive 03/06, Pending 03/10
--- NOTE | 2022-03-10 10:10 | NUR ---
Dietitian Recommendations * If/when medically appropriate, resume Vital AF 1.2 at 40 ml/hr (goal rate), Edgardo BID, Free Water Flush: 250ML Q4H (per physician d/t renal Dz) via NGT Provides: 1312 kcal/day, 77 gm protein/day, and 2279 ml free water/day Meets: 87% of lower end of estimated caloric needs and 103% of upper end of estimated protein needs * Nursing please document daily administration of Edgardo BID LP, RD Please refer to Nutrition F/U for details.
--- NOTE | 2022-03-10 11:03 | NUR ---
0815 PLACED PT ON 5L OXYMIZER, SAT 100%, RN AWARE, WILL CONT TO TITRATEAND MONITOR. Addendum: 03/10/22 at 1104 by Dee Pedraza RT Amended: Links added.
--- NOTE | 2022-03-10 11:28 | NUR ---
1125 TITRATED FI02 TO 2L OXYMIZER. SAT 100% HR 91 RR19. WILL CONT TO MONITOR. Addendum: 03/10/22 at 1130 by Dee Pedraza RT Amended: Links added.
[2022-03-10] MEDS ORDERED: NS IV PRN (11:45)
[2022-03-10] MEDS ORDERED: NOREPINEPHRINE BITARTRATE IV PRN (11:45)
[2022-03-10] MEDS ORDERED: NOREPINEPHRINE BITARTRATE 8 MG in NS 242 ML IV PRN (13:00)
[2022-03-10 14:27] LABS: BASOPHILS % (AUTO) 0.4 % (0.0-2.0); PLATELET COUNT (AUTO) 171 K/uL (130-430)
[2022-03-10 14:31] LABS: BASOPHILS # (AUTO) 0.1 K/uL (0.0-0.2); LYMPHOCYTES # (AUTO) 0.9 K/uL (1.0-5.5); MEAN CORPUSCULAR HEMOGLOBIN 28 pg (27-31); MEAN CORPUSCULAR HGB CONC 33 % (32-36); MEAN CORPUSCULAR VOLUME 87 fL (79.0-98.0); MONOCYTES # (AUTO) 0.5 K/uL (0.0-1.0); MONOCYTES % (AUTO) 3.7 % (1.7-9.3); NEUTROPHILS # (AUTO) 10.9 K/uL (1.8-7.7); NEUTROPHILS % (AUTO) 88.9 % (40.0-70.0); RED BLOOD CELL COUNT(AUTO) 2.39 MIL/uL (4.2-6.2); RED CELL DISTRIBUTION WIDTH 19.9 % (9.0-15.0); WHITE BLOOD COUNT (AUTO) 12.2 K/uL (4.8-10.8)
[2022-03-10 14:33] LABS: HEMATOCRIT 20.7 % (36-48); HEMOGLOBIN 6.8 g/dL (12.0-16.0)
[2022-03-10 14:40] LABS: PROTHROMBIN TIME 10.5 SECS (9.5-12.5)
[2022-03-10] MEDS: 0.45% NACL 1,000 ML IV SCH (17:00)
[2022-03-10] MEDS: VANCOMYCIN HCL 750 MG in NS 250 ML IV SCH (17:26)
[2022-03-10] MEDS ORDERED: FUROSEMIDE 40 MG/4 ML VIAL IVP ONE (19:30)
[2022-03-10] MEDS: levETIRAcetam 500 MG in NS 100 ML IV SCH (22:35)
[2022-03-11] VITALS (22 sets, daily range): BP systolic 115–174
[2022-03-11 01:04] LABS: BASOPHILS # (AUTO) 0.1 K/uL (0.0-0.2); BASOPHILS % (AUTO) 0.8 % (0.0-2.0); HEMOGLOBIN 12.2 g/dL (12.0-16.0); LYMPHOCYTES # (AUTO) 0.9 K/uL (1.0-5.5); MEAN CORPUSCULAR VOLUME 89 fL (79.0-98.0); PLATELET COUNT (AUTO) 137 K/uL (130-430)
[2022-03-11 01:14] LABS: EOSINOPHILS # (AUTO) 0.3 K/uL (0.0-0.4); EOSINOPHILS % (AUTO) 3.1 % (0.0-4.0); HEMATOCRIT 35.3 % (36-48); MEAN CORPUSCULAR HEMOGLOBIN 31 pg (27-31); MEAN CORPUSCULAR HGB CONC 35 % (32-36); MONOCYTES # (AUTO) 0.5 K/uL (0.0-1.0); MONOCYTES % (AUTO) 6.1 % (1.7-9.3); NEUTROPHILS # (AUTO) 6.9 K/uL (1.8-7.7); RED BLOOD CELL COUNT(AUTO) 3.99 MIL/uL (4.2-6.2); RED CELL DISTRIBUTION WIDTH 17.7 % (9.0-15.0); WHITE BLOOD COUNT (AUTO) 8.7 K/uL (4.8-10.8)
[2022-03-11 06:00] LABS: BASOPHILS # (AUTO) 0.1 K/uL (0.0-0.2); BASOPHILS % (AUTO) 0.8 % (0.0-2.0); EOSINOPHILS % (AUTO) 0.4 % (0.0-4.0); HEMATOCRIT 32.6 % (36-48); HEMOGLOBIN 11.3 g/dL (12.0-16.0); LYMPHOCYTES # (AUTO) 0.8 K/uL (1.0-5.5); LYMPHOCYTES % (AUTO) 9.4 % (20.5-51.5); MEAN CORPUSCULAR HEMOGLOBIN 30 pg (27-31); MEAN CORPUSCULAR HGB CONC 35 % (32-36); MEAN CORPUSCULAR VOLUME 87 fL (79.0-98.0); MONOCYTES # (AUTO) 0.5 K/uL (0.0-1.0); MONOCYTES % (AUTO) 5.9 % (1.7-9.3); NEUTROPHILS # (AUTO) 7.3 K/uL (1.8-7.7); NEUTROPHILS % (AUTO) 83.5 % (40.0-70.0); PLATELET COUNT (AUTO) 121 K/uL (130-430); RED BLOOD CELL COUNT(AUTO) 3.76 MIL/uL (4.2-6.2); RED CELL DISTRIBUTION WIDTH 17.4 % (9.0-15.0); WHITE BLOOD COUNT (AUTO) 8.8 K/uL (4.8-10.8)
[2022-03-11] MEDS: 0.45% NACL 1,000 ML IV SCH ×2 (06:03→17:00)
[2022-03-11] MEDS: PANTOPRAZOLE SODIUM 40 MG in NS 50 ML IV SCH ×3 (06:04→14:28)
[2022-03-11 06:26] LABS: ANION GAP 5 (5-15); CALCIUM 9.6 mg/dL (8.4-11.0); CHLORIDE 118 mmol/L (98-107); CREATININE 0.71 mg/dL (0.55-1.30); GLUCOSE 149 mg/dL (70-99); SODIUM SERUM 151 mmol/L (136-145); UREA NITROGEN, BLOOD 31 mg/dL (8-21)
[2022-03-11 07:08] LABS: POTASSIUM 2.9 mmol/L (3.5-5.1)
--- NOTE | 2022-03-11 07:45 | NUR ---
dr thurston at bedside, ok to give po medication.
--- NOTE | 2022-03-11 08:00 | NUR ---
dr orr at bedside, ok to give po medication
[2022-03-11] MEDS ORDERED: POTASSIUM CHLORIDE 40 MEQ in NS 250 ML IV ONE (08:15)
[2022-03-11] MEDS: ASCORBIC ACID 500 MG TABLET PO SCH ×2 (08:36→20:41)
[2022-03-11] MEDS: levETIRAcetam 500 MG in NS 100 ML IV SCH ×2 (08:36→20:41)
[2022-03-11] MEDS: DOCUSATE SODIUM 100 MG/10 ML UDC PO SCH ×2 (08:37→20:41)
[2022-03-11] MEDS: METOPROLOL TARTRATE 25 MG TABLET GT SCH ×2 (08:37→20:40)
[2022-03-11] MEDS: CHOLECALCIFEROL (VITAMIN D3) 2,000 UNIT TABLET PO SCH (08:37)
[2022-03-11] MEDS: CARBIDOPA/LEVODOPA 25/100 MG TABLET PO SCH ×3 (08:37→20:41)
[2022-03-11] MEDS: POTASSIUM CHLORIDE 20 mEq in 100 mL (PREMIX) 100 ML x 2 doses IV SCH ×2 (08:41→11:13)
[2022-03-11 14:31] LABS: BASOPHILS % (AUTO) 0.6 % (0.0-2.0); EOSINOPHILS % (AUTO) 0.5 % (0.0-4.0); HEMATOCRIT 31.4 % (36-48); HEMOGLOBIN 10.7 g/dL (12.0-16.0); LYMPHOCYTES # (AUTO) 0.6 K/uL (1.0-5.5); LYMPHOCYTES % (AUTO) 9.3 % (20.5-51.5); MEAN CORPUSCULAR HEMOGLOBIN 30 pg (27-31); MEAN CORPUSCULAR HGB CONC 34 % (32-36); MEAN CORPUSCULAR VOLUME 88 fL (79.0-98.0); MONOCYTES # (AUTO) 0.3 K/uL (0.0-1.0); NEUTROPHILS # (AUTO) 5.6 K/uL (1.8-7.7); NEUTROPHILS % (AUTO) 84.6 % (40.0-70.0); PLATELET COUNT (AUTO) 109 K/uL (130-430); RED BLOOD CELL COUNT(AUTO) 3.58 MIL/uL (4.2-6.2); RED CELL DISTRIBUTION WIDTH 17.3 % (9.0-15.0); WHITE BLOOD COUNT (AUTO) 6.7 K/uL (4.8-10.8)
[2022-03-11] MEDS: VANCOMYCIN HCL 750 MG in NS 250 ML IV SCH (17:40)
[2022-03-11 23:54] LABS: BASOPHILS % (AUTO) 0.4 % (0.0-2.0); EOSINOPHILS # (AUTO) 0.1 K/uL (0.0-0.4); EOSINOPHILS % (AUTO) 0.9 % (0.0-4.0); HEMATOCRIT 31.4 % (36-48); HEMOGLOBIN 10.5 g/dL (12.0-16.0); LYMPHOCYTES # (AUTO) 0.6 K/uL (1.0-5.5); LYMPHOCYTES % (AUTO) 8.1 % (20.5-51.5); MEAN CORPUSCULAR HEMOGLOBIN 30 pg (27-31); MEAN CORPUSCULAR HGB CONC 34 % (32-36); MEAN CORPUSCULAR VOLUME 89 fL (79.0-98.0); MONOCYTES # (AUTO) 0.4 K/uL (0.0-1.0); MONOCYTES % (AUTO) 5.4 % (1.7-9.3); NEUTROPHILS % (AUTO) 85.2 % (40.0-70.0); PLATELET COUNT (AUTO) 105 K/uL (130-430); RED BLOOD CELL COUNT(AUTO) 3.55 MIL/uL (4.2-6.2); RED CELL DISTRIBUTION WIDTH 17.8 % (9.0-15.0); WHITE BLOOD COUNT (AUTO) 7.1 K/uL (4.8-10.8)
[2022-03-12] VITALS (19 sets, daily range): BP systolic 137–178
[2022-03-12] MEDS: PANTOPRAZOLE SODIUM 40 MG in NS 50 ML IV SCH ×7 (00:38→22:19)
[2022-03-12] MEDS: 0.45% NACL 1,000 ML IV SCH ×3 (00:40→15:03)
[2022-03-12 06:47] LABS: BASOPHILS % (AUTO) 0.3 % (0.0-2.0); EOSINOPHILS # (AUTO) 0.1 K/uL (0.0-0.4); EOSINOPHILS % (AUTO) 1.2 % (0.0-4.0); HEMATOCRIT 30.9 % (36-48); HEMOGLOBIN 10.4 g/dL (12.0-16.0); LYMPHOCYTES # (AUTO) 0.6 K/uL (1.0-5.5); LYMPHOCYTES % (AUTO) 8.2 % (20.5-51.5); MEAN CORPUSCULAR HEMOGLOBIN 30 pg (27-31); MEAN CORPUSCULAR HGB CONC 34 % (32-36); MEAN CORPUSCULAR VOLUME 89 fL (79.0-98.0); MONOCYTES # (AUTO) 0.4 K/uL (0.0-1.0); MONOCYTES % (AUTO) 5.4 % (1.7-9.3); NEUTROPHILS # (AUTO) 5.7 K/uL (1.8-7.7); NEUTROPHILS % (AUTO) 84.9 % (40.0-70.0); PLATELET COUNT (AUTO) 100 K/uL (130-430); RED BLOOD CELL COUNT(AUTO) 3.49 MIL/uL (4.2-6.2); RED CELL DISTRIBUTION WIDTH 17.4 % (9.0-15.0); WHITE BLOOD COUNT (AUTO) 6.7 K/uL (4.8-10.8)
[2022-03-12 07:03] LABS: ANION GAP 3 (5-15); CALCIUM 9.3 mg/dL (8.4-11.0); CHLORIDE 114 mmol/L (98-107); CREATININE 0.66 mg/dL (0.55-1.30); GLUCOSE 109 mg/dL (70-99); POTASSIUM 3.5 mmol/L (3.5-5.1); SODIUM SERUM 146 mmol/L (136-145); UREA NITROGEN, BLOOD 23 mg/dL (8-21)
--- NOTE | 2022-03-12 08:00 | NUR ---
LORI DAVENPORT RN IS IN CHARGE OF THIS PATIENT/PT IS NOT FOLLOWING COMMANDS BUT RESPONSIVE TO VERBAL AND PHYSICAL STIMULI, COUGHING OCCASIONALLY BUT NOT SWALLOWING OR SPITTING PHLEGM/PT APPEARS IN ZERO DISTRESS ON 2L OXYMIZER//MW
[2022-03-12] MEDS ORDERED: PANTOPRAZOLE SODIUM 40 MG/VIAL (PROTONIX) ONE ×2 (09:38→22:19)
[2022-03-12] MEDS: CARBIDOPA/LEVODOPA 25/100 MG TABLET PO SCH ×3 (09:51→20:58)
[2022-03-12] MEDS: levETIRAcetam 500 MG in NS 100 ML IV SCH ×2 (09:52→22:14)
[2022-03-12] MEDS: ASCORBIC ACID 500 MG TABLET PO SCH ×2 (09:52→21:00)
[2022-03-12] MEDS: CHOLECALCIFEROL (VITAMIN D3) 2,000 UNIT TABLET PO SCH (09:52)
[2022-03-12] MEDS: DOCUSATE SODIUM 100 MG/10 ML UDC PO SCH ×2 (09:53→20:59)
[2022-03-12] MEDS: METOPROLOL TARTRATE 25 MG TABLET GT SCH ×2 (09:53→20:59)
--- NOTE | 2022-03-12 14:00 | NUR ---
1400 PER MD, PT NEEDS ANOTHER DAY ON PROTONIX DRIP/VS STABLE/HAD TO TITRATE OXYGEN TO 4L OXYMIZRER//MW
[2022-03-12] MEDS: VANCOMYCIN HCL 750 MG in NS 250 ML IV SCH (16:48)
--- NOTE | 2022-03-12 17:30 | NUR ---
PT TRANSFERRED TO TELEMETRY TO ROOM 123, SON WAS INFORMED/PT TOLERATED WELL BUT NOW ON 5L OXYMIZER//
--- NOTE | 2022-03-12 17:45 | NUR ---
Pt has been moved to room 23A from the ICU. Pt is on isolation for COVID. Pt is nonresponsive. PERLLA. Pt responds to deep stimuli. g tube up and running. Alexandra catheter and rectal tube is connected and draining. Bed is at lowest position. Pt is stable at this time. Will continue to monitor
[2022-03-12] MEDS: INSULIN REGULAR, HUMAN 100 UNITS/ML, 10 ML VIAL (humuLIN R) SUBCUT PRN (17:46)
[2022-03-13] MEDS: 0.45% NACL 1,000 ML IV SCH ×3 (00:49→23:27)
[2022-03-13 01:05] VITALS: BP_SYST 162
[2022-03-13] MEDS: PANTOPRAZOLE SODIUM 40 MG in NS 50 ML IV SCH ×4 (03:00→18:15)
[2022-03-13] MEDS ORDERED: PANTOPRAZOLE SODIUM 40 MG/VIAL (PROTONIX) ONE (03:14)
[2022-03-13 06:47] LABS: BASOPHILS % (AUTO) 0.4 % (0.0-2.0); EOSINOPHILS # (AUTO) 0.1 K/uL (0.0-0.4); EOSINOPHILS % (AUTO) 0.7 % (0.0-4.0); HEMATOCRIT 31.8 % (36-48); HEMOGLOBIN 10.8 g/dL (12.0-16.0); LYMPHOCYTES # (AUTO) 0.5 K/uL (1.0-5.5); LYMPHOCYTES % (AUTO) 6.9 % (20.5-51.5); MEAN CORPUSCULAR HEMOGLOBIN 30 pg (27-31); MEAN CORPUSCULAR HGB CONC 34 % (32-36); MEAN CORPUSCULAR VOLUME 88 fL (79.0-98.0); MONOCYTES # (AUTO) 0.4 K/uL (0.0-1.0); MONOCYTES % (AUTO) 4.8 % (1.7-9.3); NEUTROPHILS # (AUTO) 6.7 K/uL (1.8-7.7); NEUTROPHILS % (AUTO) 87.2 % (40.0-70.0); PLATELET COUNT (AUTO) 83 K/uL (130-430); RED BLOOD CELL COUNT(AUTO) 3.61 MIL/uL (4.2-6.2); RED CELL DISTRIBUTION WIDTH 17.3 % (9.0-15.0); WHITE BLOOD COUNT (AUTO) 7.7 K/uL (4.8-10.8)
[2022-03-13 07:12] LABS: ANION GAP 4 (5-15); CALCIUM 8.7 mg/dL (8.4-11.0); CHLORIDE 109 mmol/L (98-107); GLUCOSE 260 mg/dL (70-99); POTASSIUM 3.2 mmol/L (3.5-5.1); SODIUM SERUM 140 mmol/L (136-145); UREA NITROGEN, BLOOD 19 mg/dL (8-21)
[2022-03-13] MEDS: INSULIN REGULAR, HUMAN 100 UNITS/ML, 10 ML VIAL (humuLIN R) SUBCUT PRN ×2 (07:17→11:52)
[2022-03-13 08:00] VITALS: BP_SYST 150
--- NOTE | 2022-03-13 08:00 | NUR ---
Opening notes: PATIENT RESTING IN BED. BREATHING EVEN AND NON LABORED TO OXYMIZER AT 5L. NGT TUBE IN PLACED AND INFUSING WELL. IV INFUSING WELL. FALL AND SAFETY MEASURES PROVIDED. CALL LIGHT WITHIN REACH.
[2022-03-13] MEDS: DOCUSATE SODIUM 100 MG/10 ML UDC PO SCH ×2 (08:21→22:00)
[2022-03-13] MEDS: CHOLECALCIFEROL (VITAMIN D3) 2,000 UNIT TABLET PO SCH (08:23)
[2022-03-13] MEDS: METOPROLOL TARTRATE 25 MG TABLET GT SCH ×2 (08:23→22:34)
[2022-03-13] MEDS: CARBIDOPA/LEVODOPA 25/100 MG TABLET PO SCH ×3 (08:23→22:00)
[2022-03-13] MEDS: ASCORBIC ACID 500 MG TABLET PO SCH ×2 (08:24→22:01)
[2022-03-13] MEDS: levETIRAcetam 500 MG in NS 100 ML IV SCH ×2 (08:31→22:00)
--- NOTE | 2022-03-13 12:00 | NUR ---
RN NOTES: PATIENT RESTING IN BED. NG TUBE FLUSHED, PATENT AND IN PLACED. IV INFUSING WELL. NO S/S OF ACUTE DISTRESS NOTED.
[2022-03-13 12:53] VITALS: BP_SYST 155
[2022-03-13 16:09] VITALS: BP_SYST 152
[2022-03-13] MEDS ORDERED: POTASSIUM CHLORIDE 20 MEQ/PKT PACKET PO ONE (16:15)
[2022-03-13] MEDS: VANCOMYCIN HCL 750 MG in NS 250 ML IV SCH (16:18)
--- NOTE | 2022-03-13 19:18 | NUR ---
CLOSING NOTES: PATIENT RESTING IN BED. NO S/S OF ACUTE DISTRESS NOTED. NGT TUBE INFUSING WELL. FLEXI-SEAL IN PLACED AND MONSIVAIS CATHETER DRAINING BY GRAVITY. NEEDS MET THROUGHOUT SHIFT. FALL AND SAFETY MEASURES PROVIDED.
[2022-03-13 22:32] VITALS: BP_SYST 176
[2022-03-14] MEDS: PANTOPRAZOLE SODIUM 40 MG in NS 50 ML IV SCH ×5 (00:03→21:22)
--- NOTE | 2022-03-14 00:30 | NUR ---
PT BP 166/[address] GARCIA NOTIFIED. NO NEW ORDERS. STATED TO JUST CONTINUE TO MONITOR THE PT.
[2022-03-14 01:11] VITALS: BP_SYST 168
[2022-03-14] MEDS: INSULIN REGULAR, HUMAN 100 UNITS/ML, 10 ML VIAL (humuLIN R) SUBCUT PRN (05:45)
[2022-03-14 06:48] LABS: ANION GAP 2 (5-15); CALCIUM 9.4 mg/dL (8.4-11.0); CHLORIDE 107 mmol/L (98-107); CREATININE 0.59 mg/dL (0.55-1.30); GLUCOSE 234 mg/dL (70-99); POTASSIUM 3.6 mmol/L (3.5-5.1); SODIUM SERUM 139 mmol/L (136-145); UREA NITROGEN, BLOOD 17 mg/dL (8-21)
[2022-03-14 07:17] LABS: BASOPHILS % (AUTO) 0.5 % (0.0-2.0); EOSINOPHILS # (AUTO) 0.1 K/uL (0.0-0.4); EOSINOPHILS % (AUTO) 1.2 % (0.0-4.0); HEMATOCRIT 32.6 % (36-48); HEMOGLOBIN 11.1 g/dL (12.0-16.0); LYMPHOCYTES # (AUTO) 0.5 K/uL (1.0-5.5); LYMPHOCYTES % (AUTO) 7.6 % (20.5-51.5); MEAN CORPUSCULAR HEMOGLOBIN 30 pg (27-31); MEAN CORPUSCULAR HGB CONC 34 % (32-36); MEAN CORPUSCULAR VOLUME 89 fL (79.0-98.0); MONOCYTES # (AUTO) 0.3 K/uL (0.0-1.0); MONOCYTES % (AUTO) 4.8 % (1.7-9.3); NEUTROPHILS # (AUTO) 6.1 K/uL (1.8-7.7); NEUTROPHILS % (AUTO) 85.9 % (40.0-70.0); PLATELET COUNT (AUTO) 82 K/uL (130-430); RED BLOOD CELL COUNT(AUTO) 3.68 MIL/uL (4.2-6.2); RED CELL DISTRIBUTION WIDTH 17.5 % (9.0-15.0); WHITE BLOOD COUNT (AUTO) 7.1 K/uL (4.8-10.8)
--- NOTE | 2022-03-14 07:32 | NUR ---
report given to day rn. pt in bed resting. kendrick cath and flexiseal draining well. pt calm throughout night. all needs meet at this time
[2022-03-14 08:00] VITALS: BP_SYST 201
[2022-03-14] MEDS: METOPROLOL TARTRATE 25 MG TABLET GT SCH ×2 (08:52→21:21)
[2022-03-14] MEDS: CHOLECALCIFEROL (VITAMIN D3) 2,000 UNIT TABLET PO SCH (08:53)
[2022-03-14] MEDS: DOCUSATE SODIUM 100 MG/10 ML UDC PO SCH ×2 (08:53→21:20)
[2022-03-14] MEDS: CARBIDOPA/LEVODOPA 25/100 MG TABLET PO SCH ×3 (08:53→21:21)
[2022-03-14] MEDS: POTASSIUM CHLORIDE 20 MEQ/PKT PACKET PO SCH (08:53)
[2022-03-14] MEDS: ASCORBIC ACID 500 MG TABLET PO SCH ×2 (08:53→21:21)
[2022-03-14] MEDS: levETIRAcetam 500 MG in NS 100 ML IV SCH ×2 (09:00→21:20)
[2022-03-14] MEDS: 0.45% NACL 1,000 ML IV SCH (13:45)
--- NOTE | 2022-03-14 15:22 | NUR ---
Spoke w/patient's son,Sidney, he refused [facility] for SNF Placement. The family would like [facility] for SNF placement. Requested repeat swallow evaluation, the family does not want a G-Tube placement for the patient.
--- NOTE | 2022-03-14 15:49 | NUR ---
Discharge Planning: DCP faxed [facility] [phone] DCP to follow up
[2022-03-14 16:35] VITALS: BP_SYST 159; BP_SYST 165
--- NOTE | 2022-03-14 17:45 | NUR ---
ST EVALUATION COMPLETED. ST TX NOT INDICATED AT THIS TIME. RECOMMEND NPO WITH ALTERNATIVE MEANS OF NUTRITION DUE TO POOR SWALLOW FUNCTION AND SAFETY.
[2022-03-14] MEDS: VANCOMYCIN HCL 750 MG in NS 250 ML IV SCH (18:00)
[2022-03-14 20:00] VITALS: BP_SYST 187
--- NOTE | 2022-03-14 22:25 | NUR ---
RECIEVED PT FROM AM NURSE. PATIENT RESTING IN BED. BREATHING EVEN AND NON LABORED TO OXYMIZER AT 5L. NGT TUBE IN PLACED AND INFUSING WELL. IV INFUSING WELL. PT WOUNDS ASSESSED AND VISUALIZED. FALL AND SAFETY MEASURES PROVIDED. CALL LIGHT WITHIN REACH
--- NOTE | 2022-03-15 01:00 | NUR ---
PT VS ELEVATED BP 199/114. NOTIFIED MD GARCIA. 20MG IVP OF HYDRALYZINE ORDERED. WILL ADMINISTER AND MONITOR BP THROUGH THE NIGHT.
[2022-03-15] MEDS ORDERED: hydrALAZINE HCL 20 MG/ML VIAL IVP PRN (02:15)
[2022-03-15] MEDS: PANTOPRAZOLE SODIUM 40 MG in NS 50 ML IV SCH ×5 (02:15→21:30)
[2022-03-15] MEDS: 0.45% NACL 1,000 ML IV SCH ×2 (04:03→18:13)
--- NOTE | 2022-03-15 10:20 | NUR ---
Discharge Planning: DCP followed up per Ibis muñoz not take pt on [facility] [phone]. DCP to follow up
[2022-03-15] MEDS: DOCUSATE SODIUM 100 MG/10 ML UDC PO SCH ×2 (10:24→21:29)
[2022-03-15] MEDS: METOPROLOL TARTRATE 25 MG TABLET GT SCH ×2 (10:25→21:29)
[2022-03-15] MEDS: POTASSIUM CHLORIDE 20 MEQ/PKT PACKET PO SCH (10:25)
[2022-03-15] MEDS: hydrALAZINE HCL 25 MG TABLET PO SCH ×2 (10:26→21:29)
[2022-03-15] MEDS: ASCORBIC ACID 500 MG TABLET PO SCH ×2 (10:26→21:30)
[2022-03-15] MEDS: CARBIDOPA/LEVODOPA 25/100 MG TABLET PO SCH ×3 (10:26→21:30)
[2022-03-15] MEDS: levETIRAcetam 500 MG in NS 100 ML IV SCH ×2 (10:34→21:30)
[2022-03-15] MEDS: CHOLECALCIFEROL (VITAMIN D3) 2,000 UNIT TABLET PO SCH (10:34)
[2022-03-15 11:33] VITALS: BP_SYST 148
[2022-03-15] MEDS: INSULIN REGULAR, HUMAN 100 UNITS/ML, 10 ML VIAL (humuLIN R) SUBCUT PRN (13:09)
[2022-03-15 16:03] VITALS: BP_SYST 139
[2022-03-15 17:00] VITALS: BP_SYST 148
--- NOTE | 2022-03-15 17:30 | NUR ---
Wound Evaluation: Wound Consult ordered for Low Mihcele Score. Patient evaluated for a low Michele score of 9. Patient was awake, lethargic, non-responsive to verbal commands and received in a [employer] Bed with a P500 low air-loss mattress. Patient needs to be turned in bed. Skin assessment: 1. Anterior Forehead: Black scab from wound of unknown origin, present on admission. No odor, no drainage. Dry, stable. Recommend: No dressing needed. Continue to monitor site every shift. 2. Lower Lip: Black scabs from biting. Recommend: Cleanse involved areas with normal saline. Apply moisturizer to involved areas. Perform site care twice daily. 3. Anterior chin: Dark discolored area of skin. Recommend: Cover site with foam dressing for protection. Change dressing and assess site daily, and as needed for dressing soiling or dislodgment. 4. Left Heel: Blanchable redness, present on admission. Small area of broken skin, superficial, is not a wound. 5. Right Heel: Blanchable redness, present on admission. Recommend: Cover bilateral heels with foam dressings. Elevate, offload and float bilateral heels with 1 pillow lengthwise under each extremity at all times. Not allow heels to touch bed or other surfaces at any time. 6. Sacral area: Two brown skin areas with dry flaky skin, present on admission. Does not appear to be a DTI. Recommend: Cleanse involved area with mild soap and water. Apply Hydraguard barrier cream. Cover site with sacral foam dressing. Perform site care daily, and as needed for dressing soiling or dislodgment. Recommend reposition patient every 2 hours with pillow support. Elevate, off-load and float bilateral heels with pillows. Offload pressure areas with pillows for pressure re-distribution. Perform skin care and monitor skin integrity Q shift. Use moisture barrier cream on moisture susceptible areas QID and PRN for soiling. Maintain patient on a P500 low air-loss mattress. Addendum: 03/18/22 at 1731 by Narendra Mariscal RN Addendum: 7. Left Upper Extremity: Pitting edema with copious serous drainage with yellow tint. 8. Right Upper Extremity: Pitting edema with copious serous drainage with yellow tint. Cleanse extremities with mild soap and water. Pat dry. Wrap weeping areas of extremities with Interdry Ag cloth, then wrap with tsering. Change Interdry Ag cloth and tsering every 5 days, and as needed for cloth and tsering soiling. Elevate extremities above heart as tolerated
[2022-03-15] MEDS: VANCOMYCIN HCL 750 MG in NS 250 ML IV SCH (18:23)
--- NOTE | 2022-03-15 18:45 | NUR ---
Miss Cool has been assessed as indicted. She has been visited by her son, daughter, grand daughter as well as her caregiver. They were very happy to see as they had not seen her in 3 weeks. Covid isolation was DC today. She remains on IV abx. No iv fluids were given. bilat upper arms are fluid filled. She was seen by the wound nurse. She has no open areas to bilat arms but they are beginning to weep. She remains on TF via NG tube TF is well tolerated blood sugars are within limits of sliding scale coverage. FMS leaks small amount of stool. Alexandra remains in place with adequate output. Midline in place and functions well. She has been repositioned regularly
--- NOTE | 2022-03-15 19:15 | NUR ---
Handoff given to Zachary
--- NOTE | 2022-03-15 20:00 | NUR ---
pt family member kalyan garcia called and left her number [phone]. she stated she left a phone with the patient the day prior and the phone is no longer at bedside. the day rn was already aware and said the phone was not there during her shift. I was unable to find the phone at bedside
[2022-03-15 21:55] VITALS: BP_SYST 149
[2022-03-16] VITALS: BP_SYST 126
[2022-03-16] MEDS: PANTOPRAZOLE SODIUM 40 MG in NS 50 ML IV SCH ×3 (01:10→13:32)
[2022-03-16] MEDS: INSULIN REGULAR, HUMAN 100 UNITS/ML, 10 ML VIAL (humuLIN R) SUBCUT PRN (06:06)
--- NOTE | 2022-03-16 06:35 | NUR ---
Pt BUE wrapped per orders. pt repositioned throughout shift. call light within reach. all needs meet at this time. pt tolerating tube feeding well. will endorse care to day rn.
[2022-03-16 06:47] LABS: BASOPHILS % (AUTO) 0.3 % (0.0-2.0); EOSINOPHILS # (AUTO) 0.1 K/uL (0.0-0.4); EOSINOPHILS % (AUTO) 1.9 % (0.0-4.0); HEMATOCRIT 27.8 % (36-48); HEMOGLOBIN 9.4 g/dL (12.0-16.0); LYMPHOCYTES # (AUTO) 0.4 K/uL (1.0-5.5); LYMPHOCYTES % (AUTO) 7.9 % (20.5-51.5); MEAN CORPUSCULAR HEMOGLOBIN 30 pg (27-31); MEAN CORPUSCULAR HGB CONC 34 % (32-36); MEAN CORPUSCULAR VOLUME 90 fL (79.0-98.0); MONOCYTES # (AUTO) 0.3 K/uL (0.0-1.0); MONOCYTES % (AUTO) 5.4 % (1.7-9.3); NEUTROPHILS # (AUTO) 4.6 K/uL (1.8-7.7); NEUTROPHILS % (AUTO) 84.5 % (40.0-70.0); PLATELET COUNT (AUTO) 99 K/uL (130-430); RED BLOOD CELL COUNT(AUTO) 3.11 MIL/uL (4.2-6.2); RED CELL DISTRIBUTION WIDTH 18.2 % (9.0-15.0); WHITE BLOOD COUNT (AUTO) 5.5 K/uL (4.8-10.8)
[2022-03-16 08:00] VITALS: BP_SYST 140
[2022-03-16 08:37] LABS: ANION GAP 1 (5-15); CALCIUM 9.9 mg/dL (8.4-11.0); CHLORIDE 106 mmol/L (98-107); CREATININE 0.54 mg/dL (0.55-1.30); GLUCOSE 239 mg/dL (70-99); POTASSIUM 4.3 mmol/L (3.5-5.1); SODIUM SERUM 137 mmol/L (136-145); UREA NITROGEN, BLOOD 34 mg/dL (8-21)
[2022-03-16] MEDS: 0.45% NACL 1,000 ML IV SCH (08:39)
[2022-03-16] MEDS: ASCORBIC ACID 500 MG TABLET PO SCH ×2 (10:03→21:09)
[2022-03-16] MEDS: CHOLECALCIFEROL (VITAMIN D3) 2,000 UNIT TABLET PO SCH (10:03)
[2022-03-16] MEDS: POTASSIUM CHLORIDE 20 MEQ/PKT PACKET PO SCH (10:03)
[2022-03-16] MEDS: DOCUSATE SODIUM 100 MG/10 ML UDC PO SCH ×2 (10:03→21:10)
[2022-03-16] MEDS: levETIRAcetam 500 MG in NS 100 ML IV SCH ×2 (10:03→21:08)
[2022-03-16] MEDS: CARBIDOPA/LEVODOPA 25/100 MG TABLET PO SCH ×3 (10:04→21:09)
[2022-03-16] MEDS: METOPROLOL TARTRATE 25 MG TABLET GT SCH ×2 (10:06→21:09)
[2022-03-16] MEDS: hydrALAZINE HCL 25 MG TABLET PO SCH ×2 (10:07→21:10)
[2022-03-16 12:00] VITALS: BP_SYST 135
--- NOTE | 2022-03-16 15:25 | NUR ---
Nutritional F/U Admitting Diagnosis COVID pneumonia Reviewed Pertinent Medical/Surgical Hx Medical Record Primary RN Medical History Comment: PMH: dementia, DM2, HTN, CVA, COPD, renal Dz, and seizures per physician notes Per ST swallow evaluation 03/09 and 03/14 - ST rec for NPO w/ alternative means of nutrition Per RD chart review 03/11: pt found to have upper GI bleed w/ coffee-ground type material coming out of her NGT, per physician notes SARS-CoV-2 Ag (Rapid) Positive 02/24 & 03/14, COVID-19 ([facility]SE) Positive 03/06 & 03/10 Subjective Information: RD visited p tat bedside, resting soundly, no family present. RD witnessed TF Vital AF 1.2 infusing at 40 ml/hr. Per EMR review, no active GI bleeding; pt out of isolation a/w COVID-19 infection since 03/15; Michele scale 12 (03/15 @ 2200) - wound to posterior coccyx; 1+ pitting edema to B. arm and B. hand; abd is soft w/ active bowel sounds; last BM x2 03/15; TF Vital AF 1.2 at 40 ml/hr, GRV: 5-20 ml 03/15. TF is appropriate and warranted. Current Diet Order/Nutrition Support: Vital AF 1.2 at 40 ml/hr (goal rate), Edgardo BID, Free Water Flush: 250ML Q4H via NGT x12 days Patient/Significant Other Unable To Verbalize Education Provided Not Indicated Pertinent Medications: lopressor, SSI, colace, VIT D3, VIT C, zinc, KCl packet, vancomycin Pertinent Labs: BUN 34 H, Cr 0.54 L, BG 239 H, BG POC 220 H, H/H 9.4 L/27.8 L Height (Feet) 5 feet Height (Inches) 2.00 inches Weight (Pounds) 75 pounds -- stable since 02/25 Patient Weight 34.019 kg Body Mass Index 13.72 kg/m2 %IBW 68 [place]/Adjusted Body Weight 110#/50 kg Recent Weight Change Unable to verify Weight Status Emaciated Food Allergies Unable to verify Usual Diet At Home Unable to verify Skin Integrity Comment: Michele scale: 10; nursing notes indicate L knee dry scab, L/R arm skin tears; and posterior coccyx erythema Estimated Energy Expenditure (kcals/day) 5978-5638 (30-35 kcal/kg IBW d/t acute illness, wt gain promotion) Estimated Protein Required (g/day) 50-75 (1-1.5 gm/kg IBW d/t renal Dz, acute illness, wt gain promotion) Estimated Fluid Required (l/day) Per physician d/t renal Dz Problem/Etiology/Signs/Symptoms Complicated GI function R/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 *No longer applicable Inadequate EN support R/T recent GI bleed AEB low H/H, PRBC repletion therapy, and GI workup. *Improving Expected Outcomes/Goals - Monitor tolerance of TF formula w/ goal of pt meeting >80% of estimated nutritional needs, labs trending WNL, normal GI function, and skin integrity/wt maintenance Dietitian Recommendations * Continue Vital AF 1.2 at 40 ml/hr (goal rate), Edgardo BID, Free Water Flush: 250ML Q4H (per physician d/t renal Dz) via NGT Provides: 1312 kcal/day, 77 gm protein/day, and 2279 ml free water/day Meets: 87% of lower end of estimated caloric needs and 103% of upper end of estimated protein needs Follow Up High Risk: F/U in 2-3 days
--- NOTE | 2022-03-16 15:26 | NUR ---
Dietitian Recommendations * Continue Vital AF 1.2 at 40 ml/hr (goal rate), Edgardo BID, Free Water Flush: 250ML Q4H (per physician d/t renal Dz) via NGT Provides: 1312 kcal/day, 77 gm protein/day, and 2279 ml free water/day Meets: 87% of lower end of estimated caloric needs and 103% of upper end of estimated protein needs Please refer to Nutrition F/U for details. RU, RD
[2022-03-16 16:00] VITALS: BP_SYST 127
[2022-03-16] MEDS: metFORMIN HCL 500 MG TABLET PO SCH (17:43)
[2022-03-16] MEDS: VANCOMYCIN HCL 750 MG in NS 250 ML IV SCH (17:43)
--- NOTE | 2022-03-16 18:29 | NUR ---
Miss Cool has been assessed as indicated. She continues to be lethargic with periods of time that she open her eyes. No verbal communication has been observed. TF has been well tolerated. IVF were held and then DC due to bilateral upper extremity edema. Metformin was restarted. prior to that blood sugars were within normal limits of the sliding scale coverage. FMS remains in place. Alexandra remains in place and is well tolerated. She has been visited by Her son, daughter, grand daughter as well as her private acute care clinical nurse specialist. Her son Sidney has been in touch with dr Morales. they were unable to talk in person. But Dr Morales informed this junior technical writer that he would call Sidney later. Family has removed the wraps that have been placed on her arms during their visits.
--- NOTE | 2022-03-16 19:30 | NUR ---
handoff has been given to Zachary
[2022-03-16 20:12] VITALS: BP_SYST 151
[2022-03-17] VITALS: BP_SYST 149
--- NOTE | 2022-03-17 06:52 | NUR ---
PICC DRESSING CHANGED. PT TOLERATED WELL. BUE WRAPPED WITH TOWELS. PT FAMILY REMOVED WRAPS ORDERED PER MD OFF MULTIPLE TIMES DAY PRIOR
[2022-03-17 08:00] VITALS: BP_SYST 158
[2022-03-17] MEDS: CHOLECALCIFEROL (VITAMIN D3) 2,000 UNIT TABLET PO SCH (09:22)
[2022-03-17] MEDS: levETIRAcetam 500 MG in NS 100 ML IV SCH ×2 (09:22→20:36)
[2022-03-17] MEDS: metFORMIN HCL 500 MG TABLET PO SCH ×2 (09:23→17:41)
[2022-03-17] MEDS: DOCUSATE SODIUM 100 MG/10 ML UDC PO SCH ×2 (09:23→20:35)
[2022-03-17] MEDS: METOPROLOL TARTRATE 25 MG TABLET GT SCH ×2 (09:24→20:36)
[2022-03-17] MEDS: hydrALAZINE HCL 25 MG TABLET PO SCH ×2 (09:24→20:35)
[2022-03-17] MEDS: POTASSIUM CHLORIDE 20 MEQ/PKT PACKET PO SCH (09:24)
[2022-03-17] MEDS: CARBIDOPA/LEVODOPA 25/100 MG TABLET PO SCH ×3 (09:25→20:35)
[2022-03-17] MEDS: ASCORBIC ACID 500 MG TABLET PO SCH ×2 (09:25→20:35)
[2022-03-17 12:20] VITALS: BP_SYST 136
[2022-03-17 16:12] VITALS: BP_SYST 123
--- NOTE | 2022-03-17 16:42 | NUR ---
1605 NASOTRACHEALLY SUCTIONED THICK MODERATE WHITE SECRETIONS, SAT 100% HR 98. RN AWARE. Addendum: 03/17/22 at 1645 by Dee Pedraza RT Amended: Links added.
--- NOTE | 2022-03-17 17:57 | NUR ---
0800: PATIENT IS ASLEEP, OPEN EYES WHEN WITH TACTILE STIMULI, DOES NOT TRACK OR FOLLOW DIRECTION. O2 VIA OXIMYZER NO S/S OF ANY ACUTE DISTRESS @ THIS TIME. ALL NEEDS ASSESS Q HOURLY AND PRN. ABDOMEN SOFT AND NON-DISTENDED, P Addendum: 03/17/22 at 1800 by Eight fagot maker CONTINUE TO ABOVE NOTE: POSITIVE BOWEL SOUND X 4 NO N/V OR DIARRHEA NOTED. SKIN WARM AND DRY WITH MULTIPLE SKI N PROBLEM, TX INITIATED PER PROTOCOL. NG-TUBE INTACT FOR MED AND FEEDING.
--- NOTE | 2022-03-17 18:00 | NUR ---
CONSULT DR. HUANG PLAN FOR PEG INSERTION TOMORROW, CONSENT SIGNED BY SON JUAN TO AHEAD WITH PROCEDURE PLANNED FOR TOMORROW.
[2022-03-17 21:00] VITALS: BP_SYST 139
--- NOTE | 2022-03-18 | NUR ---
pt tube feeding turned off. pt npo for for peg placement in am.
[2022-03-18 01:13] VITALS: BP_SYST 128
[2022-03-18] MEDS ORDERED: CEFAZOLIN 1 GM IVPB PREMIX 50 ML IV ONE ×3 (06:12→07:00)
[2022-03-18] MEDS ORDERED: MEPERIDINE 100 MG INJ. 100 MG/ML VIAL ONE (07:56)
[2022-03-18] MEDS ORDERED: MIDAZOLAM HCL 5 MG/5 ML VIAL ONE (07:57)
[2022-03-18] MEDS: metFORMIN HCL 500 MG TABLET PO SCH ×2 (08:00→18:56)
[2022-03-18] MEDS ORDERED: SIMETHICONE 40 MG/0.6 ML ML ONE (08:51)
[2022-03-18] MEDS: METOPROLOL TARTRATE 25 MG TABLET GT SCH ×2 (09:00→23:23)
[2022-03-18] MEDS: ASCORBIC ACID 500 MG TABLET PO SCH ×2 (09:00→23:29)
[2022-03-18] MEDS: DOCUSATE SODIUM 100 MG/10 ML UDC PO SCH ×2 (09:00→23:25)
[2022-03-18] MEDS: CHOLECALCIFEROL (VITAMIN D3) 2,000 UNIT TABLET PO SCH (09:00)
[2022-03-18] MEDS: hydrALAZINE HCL 25 MG TABLET PO SCH ×2 (09:00→23:26)
[2022-03-18] MEDS: CARBIDOPA/LEVODOPA 25/100 MG TABLET PO SCH ×3 (09:00→23:22)
[2022-03-18] MEDS: levETIRAcetam 500 MG in NS 100 ML IV SCH ×2 (09:00→23:24)
[2022-03-18 10:00] VITALS: BP_SYST 128
[2022-03-18 10:44] LABS: PROTHROMBIN TIME 10.3 SECS (9.5-12.5)
[2022-03-18 10:57] LABS: BASOPHILS % (AUTO) 0.7 % (0.0-2.0); EOSINOPHILS # (AUTO) 0.1 K/uL (0.0-0.4); EOSINOPHILS % (AUTO) 2.9 % (0.0-4.0); HEMOGLOBIN 9.1 g/dL (12.0-16.0); LYMPHOCYTES # (AUTO) 0.7 K/uL (1.0-5.5); LYMPHOCYTES % (AUTO) 17.1 % (20.5-51.5); MEAN CORPUSCULAR HEMOGLOBIN 30 pg (27-31); MEAN CORPUSCULAR HGB CONC 34 % (32-36); MEAN CORPUSCULAR VOLUME 89 fL (79.0-98.0); MONOCYTES # (AUTO) 0.3 K/uL (0.0-1.0); MONOCYTES % (AUTO) 7.5 % (1.7-9.3); NEUTROPHILS # (AUTO) 2.9 K/uL (1.8-7.7); NEUTROPHILS % (AUTO) 71.8 % (40.0-70.0); PLATELET COUNT (AUTO) 139 K/uL (130-430); RED BLOOD CELL COUNT(AUTO) 3.03 MIL/uL (4.2-6.2); RED CELL DISTRIBUTION WIDTH 17.1 % (9.0-15.0)
[2022-03-18 11:07] LABS: ANION GAP 5 (5-15); CALCIUM 10.1 mg/dL (8.4-11.0); CHLORIDE 103 mmol/L (98-107); CREATININE 0.39 mg/dL (0.55-1.30); GLUCOSE 121 mg/dL (70-99); POTASSIUM 5.1 mmol/L (3.5-5.1); SODIUM SERUM 138 mmol/L (136-145); UREA NITROGEN, BLOOD 25 mg/dL (8-21)
[2022-03-18 11:25] VITALS: BP_SYST 140
[2022-03-18] MEDS ORDERED: LANSOPRAZOLE 30 MG CAPSULE.DR GT ONE (12:00)
[2022-03-19] VITALS (23 sets, daily range): BP systolic 96–151
[2022-03-19] MEDS ORDERED: NOREPINEPHRINE 4 MG/4 ML VIAL IV ONE (04:18)
--- NOTE | 2022-03-19 04:54 | NUR ---
DURING ROUNDS I NOTICED MS. ARELLANO SATURATIONS WERE IN THE LOW 80s. I INCREASED HER OXYGEN AND REASSESSED HER AND HER SATURATION REMAINED LOW. I ASSESSED THE SATURATION ON ANOTHER EXTREMITY AND THE MONITOR SHOWED A SATURATION IN THE LOW 70s. I increased the pt's oxygen once more but because of the patient's history of COPD I DID NOT WANT TO INCREASE HER O2 TOO MUCH SO I CALLED RT TO ASSESS THE PT WELL AND I SUGGESTED BIPAP. I CALLED THE MD FOR ORDERS BUT WHILE ON THE PHONE WITH THE DOCTOR THEY CHARGE NURSE CALLED Janey MONAE. SEE PJ MONAE DOCUMENTATION
[2022-03-19] MEDS ORDERED: ATROPINE SULFATE 1 MG/10 ML SYRINGE IVP ONE (04:55)
--- NOTE | 2022-03-19 05:18 | NUR ---
DR PETER pickensed placement of ET tube after viewing x-ray.
--- NOTE | 2022-03-19 05:25 | NUR ---
HIGH ALERT NOTE: Called Dr. Trejo back at 0525 identified within the medical roster to verify physician authenticity. For Propofol drip and Ativan 1mg Q2H IVP.
[2022-03-19] MEDS ORDERED: LORazepam 2 MG/ML VIAL IVP PRN (05:30)
[2022-03-19] MEDS ORDERED: NOREPINEPHRINE BITARTRATE 4 MG in NS 246 ML IV PRN (06:00)
--- NOTE | 2022-03-19 06:37 | NUR ---
Pt arrived in icu at 0440. Patient was a Rapid from the floor due to oxygen desaturation, lowest was 72%. Received patient from the floor lethargic w/no response to painful stimuli, no cough gag blink, PERRL sluggish. Pt was Intubated during the rapid; settings AC 16 500 100% PEEP of 8, she was hypotensive lowest 49/26 on levo titrated per protocol. Patient also started to go minnie as low as HR 34 with Oxygen level of 80%. stat Chest Xray was done to confirm tube placement and the reason why patient oxygen level was not increasing, RT at bedside and made adjustment base on the result. BP increased after titration, oxygen level increased after adjustment made by RT. Doctor Neil aware and orders were given. charge nurse aware. family were notified by previous nurse.
--- NOTE | 2022-03-19 06:46 | NUR ---
RT @ 0350 WAS CALLED TO PT BY RN DUE TO PT DESATING. PT ON ON 5L OXYMIZER SPO2 79%. INCREASED LITERS WITH NO CHANGE. PUT PT ON NONREBREATHER PT'S SPO2 82. RAPID WAS CALLED. DR WANTED TO INTUBATE. HR IS PRESENT AND SPO2 STAYED THE SAME AROUND 80%. BAGGED WITH 100% O2 VIA AMBU BAG BEFORE, DURING AND AFTER INTUBATION. MEDS WERE PUSHED AND DR INTUBATED WITH 6.5 ET TUBE 26CM @ LIP. COLOR CHANGE ON CO2 DETECTOR AND BILAT BS BY DRS VERIFICATION. PT WAS TRANSFERRED TO ICU 8 WITH NO EVENTS. XRAY REVEALED THAT ET TUBE WAS IN THE RIGHT MAIN STEM. RT PULLED BACK ET TUBE TO 22CM LIP LINE AND SECURED. WITH ET BROWN. ABG AND SPUTUM SAMPLE SENT. PT SPO2 97%
--- NOTE | 2022-03-19 07:23 | NUR ---
PT NEVER CODED. SHE BEGAN STATING IN THE 80s and 70s
[2022-03-19] MEDS ORDERED: NS 500 ML IV ONE (08:15)
--- NOTE | 2022-03-19 08:15 | NUR ---
I WAS ABLE TO REACH THE PATIENT'S SON GLORIA ARELLANO AND UPDATE HIM ON HIS MOTHER'S STATUS. HE WANTS IT NOTED IN HIS MOTHERS CHART THAT SHE NEVER HAD COPD.
[2022-03-19] MEDS: DOCUSATE SODIUM 100 MG/10 ML UDC PO SCH ×2 (09:00→20:49)
[2022-03-19] MEDS: hydrALAZINE HCL 25 MG TABLET PO SCH ×2 (09:00→20:53)
[2022-03-19] MEDS: METOPROLOL TARTRATE 25 MG TABLET GT SCH ×2 (09:00→20:48)
[2022-03-19] MEDS: LANSOPRAZOLE 30 MG CAPSULE.DR GT SCH (09:00)
[2022-03-19] MEDS: CHOLECALCIFEROL (VITAMIN D3) 2,000 UNIT TABLET PO SCH (09:00)
[2022-03-19] MEDS: metFORMIN HCL 500 MG TABLET PO SCH ×2 (09:00→18:21)
[2022-03-19] MEDS: ASCORBIC ACID 500 MG TABLET PO SCH ×2 (09:00→20:49)
[2022-03-19] MEDS: CARBIDOPA/LEVODOPA 25/100 MG TABLET PO SCH ×3 (09:00→20:49)
[2022-03-19] MEDS: NOREPINEPHRINE BITARTRATE 8 MG in D5W 242 ML IV PRN (09:00)
[2022-03-19] MEDS: PROPOFOL DRIP 100 ML IV PRN (09:30)
[2022-03-19] MEDS: NACL 0.9% 1,000 ML IV SCH ×2 (09:30→18:05)
--- NOTE | 2022-03-19 09:40 | NUR ---
ET TUBE PLACED THIS MORNING HAS CUFF LEAK PER RT BHARATHI. MD SING FROM ER BEDSIDE TO REINTUBATE AND CHANGE TUBE. ET 7.5 PLACED. GOOD COLOR CHANGE ON CAPNOGRAPHER. BILAT BREATH SOUNDS PRESENT. PT TOLERATED WELL, TO PLACE STAT CXRAY FOR ET TUBE PLACEMENT, 1 VIEW PER MD SING.
[2022-03-19] MEDS: levETIRAcetam 500 MG in NS 100 ML IV SCH ×2 (10:00→20:49)
--- NOTE | 2022-03-19 10:11 | NUR ---
[address] VALENTINE REPLACED 6.5 ETT TUBE WITH A 7.5 ETT STILL AT 22cm LIP LINE WITHOUT INCIDENT. ETT TUBE WAS REPLACED DUE TO GROSS LEAK IN CUFF. A BOUGI WAS USE FOR ETT REPLACEMENT.
--- NOTE | 2022-03-19 10:32 | NUR ---
PULLED ETT BACK 1cm FROM 22cm LIP LINE TO 21cm LIP LINE PER DR VILLA (ED DR).
[2022-03-19] MEDS ORDERED: ETOMIDATE 20 MG/ 10 ML VIAL (AMIDATE) IVP ONE (13:38)
[2022-03-19] MEDS ORDERED: SUCCINYLCHOLINE CHLORIDE 20 MG/ML(QUELICIN) IVP ONE (13:38)
--- NOTE | 2022-03-19 19:08 | NUR ---
SBAR ENDORSED TO DEANA MOREIRA. ALL QUESTIONS ANSWERED. PT VSS. END OF CARE.
[2022-03-19] MEDS: ACETAMINOPHEN 325 MG TABLET PO PRN (23:36)
[2022-03-20] VITALS (30 sets, daily range): BP systolic 84–145
[2022-03-20 06:34] LABS: HEMATOCRIT 25.1 % (36-48); HEMOGLOBIN 8.6 g/dL (12.0-16.0); MEAN CORPUSCULAR HEMOGLOBIN 30 pg (27-31); MEAN CORPUSCULAR HGB CONC 34 % (32-36); MEAN CORPUSCULAR VOLUME 87 fL (79.0-98.0); PLATELET COUNT (AUTO) 213 K/uL (130-430); RED BLOOD CELL COUNT(AUTO) 2.87 MIL/uL (4.2-6.2)
[2022-03-20] MEDS: NACL 0.9% 1,000 ML IV SCH ×3 (06:47→14:58)
[2022-03-20] MEDS: INSULIN REGULAR, HUMAN 100 UNITS/ML, 10 ML VIAL (humuLIN R) SUBCUT PRN ×3 (06:59→17:59)
[2022-03-20 07:01] LABS: ALBUMIN 1.1 g/dL (3.4-4.8); ANION GAP 10 (5-15); ASPARTATE AMINOTRANSFERASE 15 U/L (10-37); CALCIUM 9.3 mg/dL (8.4-11.0); CHLORIDE 103 mmol/L (98-107); CREATININE 1.14 mg/dL (0.55-1.30); GLUCOSE 249 mg/dL (70-99); POTASSIUM 3.8 mmol/L (3.5-5.1); SODIUM SERUM 137 mmol/L (136-145); TOTAL BILIRUBIN 0.1 mg/dL (0.0-1.0); UREA NITROGEN, BLOOD 24 mg/dL (8-21)
--- NOTE | 2022-03-20 08:00 | NUR ---
LORI ANGEL IN CHARGE OF THIS PATIENT, PT IS SEDATED AND RESPONDS TO VOICE BUT NOT FOLLOWING COMMANDS.TITRATING PT LEVOPHED, BUT NOT OFF YET, PT REMAINS IN ZERO APPARENT DISTRESS/MW
[2022-03-20 08:03] LABS: ALANINE AMINOTRANSFERASE 4 U/L (12-78)
[2022-03-20] MEDS: METOPROLOL TARTRATE 25 MG TABLET GT SCH ×2 (09:00→20:26)
[2022-03-20] MEDS: hydrALAZINE HCL 25 MG TABLET PO SCH ×2 (09:00→20:25)
[2022-03-20] MEDS: levETIRAcetam 500 MG in NS 100 ML IV SCH ×2 (09:35→20:26)
[2022-03-20] MEDS: CARBIDOPA/LEVODOPA 25/100 MG TABLET PO SCH ×3 (09:35→20:26)
[2022-03-20] MEDS: ASCORBIC ACID 500 MG TABLET PO SCH ×2 (09:35→20:27)
[2022-03-20] MEDS: metFORMIN HCL 500 MG TABLET PO SCH ×2 (09:36→17:58)
[2022-03-20] MEDS: LANSOPRAZOLE 30 MG CAPSULE.DR GT SCH (09:36)
[2022-03-20] MEDS: CHOLECALCIFEROL (VITAMIN D3) 2,000 UNIT TABLET PO SCH (09:37)
[2022-03-20] MEDS: DOCUSATE SODIUM 100 MG/10 ML UDC PO SCH ×2 (09:37→20:26)
[2022-03-20] MEDS ORDERED: PIPERACILLIN/TAZO 2.25G/DEX-IS 50 ML IV ONE (16:15)
[2022-03-20 16:18] LABS: BAND % (MANUAL) 5 % (0-6); BASOPHILS % (MANUAL) 0 % (0-2); EOSINOPHILS % (MANUAL) 0 % (0-7); LYMPHOCYTES % (MANUAL) 6 % (20-46); MONOCYTES % (MANUAL) 4 % (0-11)
[2022-03-20] MEDS: PROPOFOL DRIP 100 ML IV PRN (18:33)
[2022-03-20] MEDS: ENOXAPARIN SODIUM 30 MG/0.3 ML SYRINGE SUBCUT SCH (20:27)
[2022-03-20] MEDS: PIPERACILLIN/TAZO 2.25G/DEX-IS 50 ML IV SCH (23:04)
[2022-03-21] VITALS (23 sets, daily range): BP systolic 90–136
[2022-03-21] MEDS: PIPERACILLIN/TAZO 2.25G/DEX-IS 50 ML IV SCH ×4 (04:00→22:00)
[2022-03-21] MEDS: NACL 0.9% 1,000 ML IV SCH ×3 (06:19→17:56)
[2022-03-21 06:51] LABS: BASOPHILS % (AUTO) 0.3 % (0.0-2.0); EOSINOPHILS # (AUTO) 0.1 K/uL (0.0-0.4); EOSINOPHILS % (AUTO) 1.6 % (0.0-4.0); HEMATOCRIT 26.9 % (36-48); HEMOGLOBIN 9.1 g/dL (12.0-16.0); LYMPHOCYTES # (AUTO) 0.5 K/uL (1.0-5.5); LYMPHOCYTES % (AUTO) 5.2 % (20.5-51.5); MEAN CORPUSCULAR HEMOGLOBIN 30 pg (27-31); MEAN CORPUSCULAR HGB CONC 34 % (32-36); MEAN CORPUSCULAR VOLUME 88 fL (79.0-98.0); MONOCYTES # (AUTO) 0.1 K/uL (0.0-1.0); MONOCYTES % (AUTO) 1.3 % (1.7-9.3); NEUTROPHILS # (AUTO) 8.5 K/uL (1.8-7.7); NEUTROPHILS % (AUTO) 91.6 % (40.0-70.0); PLATELET COUNT (AUTO) 270 K/uL (130-430); RED BLOOD CELL COUNT(AUTO) 3.07 MIL/uL (4.2-6.2); RED CELL DISTRIBUTION WIDTH 17.4 % (9.0-15.0); WHITE BLOOD COUNT (AUTO) 9.2 K/uL (4.8-10.8)
[2022-03-21 07:06] LABS: ANION GAP 13 (5-15); CALCIUM 9.6 mg/dL (8.4-11.0); CHLORIDE 104 mmol/L (98-107); CREATININE 1.16 mg/dL (0.55-1.30); GLUCOSE 138 mg/dL (70-99); SODIUM SERUM 139 mmol/L (136-145); UREA NITROGEN, BLOOD 29 mg/dL (8-21)
--- NOTE | 2022-03-21 07:30 | NUR ---
Received report from shift coordinator RN, and assumed patient care.
[2022-03-21] MEDS: PROPOFOL DRIP 100 ML IV PRN (07:34)
--- NOTE | 2022-03-21 08:05 | NUR ---
Patient was placed on sedation vacation, propofol gtt is on hold in order to proceed with CPAP trials. Will reinforce if needed throughout the shift.
[2022-03-21] MEDS: CARBIDOPA/LEVODOPA 25/100 MG TABLET PO SCH ×3 (08:33→21:00)
[2022-03-21] MEDS: LANSOPRAZOLE 30 MG CAPSULE.DR GT SCH (08:33)
[2022-03-21] MEDS: CHOLECALCIFEROL (VITAMIN D3) 2,000 UNIT TABLET PO SCH (08:33)
[2022-03-21] MEDS: DOCUSATE SODIUM 100 MG/10 ML UDC PO SCH ×2 (08:33→21:00)
[2022-03-21] MEDS: ASCORBIC ACID 500 MG TABLET PO SCH ×2 (08:34→21:00)
[2022-03-21] MEDS: METOPROLOL TARTRATE 25 MG TABLET GT SCH ×2 (08:34→21:00)
[2022-03-21] MEDS: hydrALAZINE HCL 25 MG TABLET PO SCH ×2 (08:34→21:00)
[2022-03-21] MEDS: metFORMIN HCL 500 MG TABLET PO SCH ×2 (08:36→17:24)
--- NOTE | 2022-03-21 10:00 | NUR ---
Patient was not able to tolerate CPAP trials, was placed back on the vent settings due to patient's vital signs of HR elevated in the 120s, and tachypneic in the 25s. Will reinforce if needed throughout the shift.
--- NOTE | 2022-03-21 10:10 | NUR ---
COVID ISOLATION Pts son angry about being asked to step out of pts room due to isolation protocols for COVID. After his questions were answered he calmed down but would like to talk to Dr. Trejo and RT. Dr. Zuniga's notes indicated that pt can be removed from isolation as it has been 20 days since testing positive for COVID. Visitor informed he can go in to visit pt.
--- NOTE | 2022-03-21 10:17 | NUR ---
0950 PT PLACED BACK TO DUE TO TACHYPNEA AND TACHYCARDIA. HARISH EVERETT. Addendum: 03/21/22 at 1019 by Dee Pedraza RT Amended: Links added.
[2022-03-21] MEDS: levETIRAcetam 500 MG in NS 100 ML IV SCH ×2 (10:18→21:00)
[2022-03-21] MEDS: NOREPINEPHRINE BITARTRATE 8 MG in D5W 242 ML IV PRN (10:20)
--- NOTE | 2022-03-21 11:00 | NUR ---
Pts son requested to speak to Dr. Trejo. Call out to Dr. Trejo.
--- NOTE | 2022-03-21 11:26 | NUR ---
Family requesting to speak to Dr. Zuniga. Call placed.
--- NOTE | 2022-03-21 12:00 | NUR ---
Dr. Zuniga at bedside and spoke to patient's family members regarding isolation status. Patient's is allowed to have visitors, and OK to DC isolation per Dr. Zuniga's verbal and most recent progress note. Patient had no further concerns noted at the moment, and will reinforce if needed throughout the shift.
[2022-03-21] MEDS: INSULIN REGULAR, HUMAN 100 UNITS/ML, 10 ML VIAL (humuLIN R) SUBCUT PRN (18:21)
[2022-03-21] MEDS: ENOXAPARIN SODIUM 30 MG/0.3 ML SYRINGE SUBCUT SCH (21:00)
[2022-03-22] VITALS (31 sets, daily range): BP systolic 95–153
[2022-03-22] MEDS: NACL 0.9% 1,000 ML IV SCH ×3 (02:55→19:35)
[2022-03-22] MEDS: PIPERACILLIN/TAZO 2.25G/DEX-IS 50 ML IV SCH ×4 (04:00→21:44)
--- NOTE | 2022-03-22 07:12 | NUR ---
Patient is resting in bed on a ventilator. Ventilator settings are AC 14, 30%, 500, peep 5. Patient is riding the vent as expected and saturations are holding in the high 90s. Patient does have visual edema on the arms and feet that is pitting and weeping. Lung sounds have crackles on the bilateral bases. Skin has tear on forearm, sacrum, and f Addendum: 03/22/22 at 1504 by [facility] Nine upkeep worker section saved without finishing Skin tear on L Forearm, Left knee, and sacrum, as well as a scab on her forehead. Patient is not on any medication drips for sedation, only has NS running through a PICC line in their Right upper arm. Plan for rosio is to have CPAP trials.
--- NOTE | 2022-03-22 07:15 | NUR ---
Dr. Morales at bedside. New orders received
--- NOTE | 2022-03-22 08:16 | NUR ---
Patient has been switched to CPAP 06/01. Patient is supporting own breathing on 30% oxygen. Will continue to monitor.
[2022-03-22 08:31] LABS: BASOPHILS % (AUTO) 0.2 % (0.0-2.0); EOSINOPHILS # (AUTO) 0.2 K/uL (0.0-0.4); EOSINOPHILS % (AUTO) 1.6 % (0.0-4.0); HEMATOCRIT 30.3 % (36-48); HEMOGLOBIN 9.8 g/dL (12.0-16.0); LYMPHOCYTES # (AUTO) 0.5 K/uL (1.0-5.5); MEAN CORPUSCULAR HEMOGLOBIN 29 pg (27-31); MEAN CORPUSCULAR HGB CONC 32 % (32-36); MEAN CORPUSCULAR VOLUME 90 fL (79.0-98.0); MONOCYTES # (AUTO) 0.3 K/uL (0.0-1.0); MONOCYTES % (AUTO) 2.1 % (1.7-9.3); NEUTROPHILS % (AUTO) 92.1 % (40.0-70.0); PLATELET COUNT (AUTO) 271 K/uL (130-430); RED BLOOD CELL COUNT(AUTO) 3.37 MIL/uL (4.2-6.2); RED CELL DISTRIBUTION WIDTH 17.9 % (9.0-15.0); WHITE BLOOD COUNT (AUTO) 13.1 K/uL (4.8-10.8)
[2022-03-22] MEDS: metFORMIN HCL 500 MG TABLET PO SCH ×2 (08:34→19:10)
[2022-03-22] MEDS: hydrALAZINE HCL 25 MG TABLET PO SCH ×3 (08:34→21:21)
[2022-03-22] MEDS: METOPROLOL TARTRATE 25 MG TABLET GT SCH ×2 (08:34→21:10)
[2022-03-22] MEDS: ASCORBIC ACID 500 MG TABLET PO SCH ×2 (08:35→21:10)
[2022-03-22] MEDS: CHOLECALCIFEROL (VITAMIN D3) 2,000 UNIT TABLET PO SCH (08:35)
[2022-03-22] MEDS: LANSOPRAZOLE 30 MG CAPSULE.DR GT SCH (08:35)
[2022-03-22] MEDS: DOCUSATE SODIUM 100 MG/10 ML UDC PO SCH ×2 (08:35→21:09)
[2022-03-22] MEDS: CARBIDOPA/LEVODOPA 25/100 MG TABLET PO SCH ×3 (08:35→21:10)
[2022-03-22] MEDS: levETIRAcetam 500 MG in NS 100 ML IV SCH ×2 (08:35→21:42)
[2022-03-22 09:45] LABS: ANION GAP 13 (5-15); CALCIUM 10.3 mg/dL (8.4-11.0); CHLORIDE 107 mmol/L (98-107); CREATININE 1.27 mg/dL (0.55-1.30); GLUCOSE 211 mg/dL (70-99); POTASSIUM 4.1 mmol/L (3.5-5.1); SODIUM SERUM 136 mmol/L (136-145); TOTAL BILIRUBIN 0.3 mg/dL (0.0-1.0); UREA NITROGEN, BLOOD 37 mg/dL (8-21)
--- NOTE | 2022-03-22 09:45 | NUR ---
Patient field care manager at bedside and has been updated with patient status and education.
[2022-03-22 09:46] LABS: ALANINE AMINOTRANSFERASE 3 U/L (12-78); ASPARTATE AMINOTRANSFERASE 11 U/L (10-37)
[2022-03-22] MEDS ORDERED: HALOPERIDOL LACTATE 5 MG/ML VIAL ONE (11:42)
[2022-03-22] MEDS: INSULIN REGULAR, HUMAN 100 UNITS/ML, 10 ML VIAL (humuLIN R) SUBCUT PRN (12:28)
[2022-03-22] MEDS ORDERED: SODIUM BICARBONATE 8.4% JECT 50 MEQ/50 ML SYRINGE IVP ONE (13:00)
[2022-03-22] MEDS: IPRATROPIUM/ALBUTEROL SULFATE 3 ML AMPUL.NEB (DUONEB) INH SCH ×2 (13:00→19:00)
--- NOTE | 2022-03-22 19:00 | NUR ---
Received pt from outgoing nurse.ventilated settings unchanged .rectal tube re inserted .cares rendered and positioned to right side .vitals updated pt feed on hold due to high residue. Awaits Amonia and Keppra levels
[2022-03-22] MEDS: ENOXAPARIN SODIUM 30 MG/0.3 ML SYRINGE SUBCUT SCH (21:11)
--- NOTE | 2022-03-22 21:34 | NUR ---
cares given and medicated. awaits Keppra lab value. Amonia levels 11
--- NOTE | 2022-03-22 22:00 | NUR ---
cares rendered suctioned .positioned to left side .has received Meds.vitals are within normal range
[2022-03-23] VITALS (35 sets, daily range): BP systolic 98–168
[2022-03-23] MEDS: IPRATROPIUM/ALBUTEROL SULFATE 3 ML AMPUL.NEB (DUONEB) INH SCH ×4 (00:46→19:59)
--- NOTE | 2022-03-23 02:00 | NUR ---
vent settings unchanged .vitals done .pt positioned to left side. awaits Keppra levels form lab.
[2022-03-23] MEDS: PIPERACILLIN/TAZO 2.25G/DEX-IS 50 ML IV SCH ×4 (05:42→21:37)
[2022-03-23] MEDS: NACL 0.9% 1,000 ML IV SCH ×2 (05:46→11:18)
[2022-03-23 06:21] LABS: BASOPHILS % (AUTO) 0.6 % (0.0-2.0); EOSINOPHILS # (AUTO) 0.2 K/uL (0.0-0.4); EOSINOPHILS % (AUTO) 2.6 % (0.0-4.0); HEMATOCRIT 22.8 % (36-48); HEMOGLOBIN 7.8 g/dL (12.0-16.0); LYMPHOCYTES # (AUTO) 0.4 K/uL (1.0-5.5); LYMPHOCYTES % (AUTO) 5.3 % (20.5-51.5); MEAN CORPUSCULAR HEMOGLOBIN 30 pg (27-31); MEAN CORPUSCULAR HGB CONC 34 % (32-36); MEAN CORPUSCULAR VOLUME 87 fL (79.0-98.0); MONOCYTES # (AUTO) 0.1 K/uL (0.0-1.0); MONOCYTES % (AUTO) 1.3 % (1.7-9.3); NEUTROPHILS # (AUTO) 6.9 K/uL (1.8-7.7); NEUTROPHILS % (AUTO) 90.2 % (40.0-70.0); PLATELET COUNT (AUTO) 240 K/uL (130-430); RED BLOOD CELL COUNT(AUTO) 2.61 MIL/uL (4.2-6.2); RED CELL DISTRIBUTION WIDTH 17.7 % (9.0-15.0)
[2022-03-23 06:29] LABS: ANION GAP 10 (5-15); CALCIUM 9.2 mg/dL (8.4-11.0); CHLORIDE 109 mmol/L (98-107); CREATININE 1.19 mg/dL (0.55-1.30); GLUCOSE 109 mg/dL (70-99); POTASSIUM 3.3 mmol/L (3.5-5.1); SODIUM SERUM 142 mmol/L (136-145); UREA NITROGEN, BLOOD 36 mg/dL (8-21)
--- NOTE | 2022-03-23 07:15 | NUR ---
Received report from soaking tank worker RN, and assumed patient care.
--- NOTE | 2022-03-23 07:42 | NUR ---
RT NOTES Per daily trial, vent to CPAP 5 PS 10. No adverse reactions noted. Will monitor pt. RN made aware.
[2022-03-23 07:50] LABS: WHITE BLOOD COUNT (AUTO) 7.7 K/uL (4.8-10.8)
--- NOTE | 2022-03-23 07:50 | NUR ---
Patient was placed on CPAP trials, repositioned patient for better tidal volume, educated the patient taking breaths but patient is unable to comprehend teaching at the moment, will reinforce if needed throughout the shift.
[2022-03-23] MEDS: levETIRAcetam 500 MG in NS 100 ML IV SCH ×2 (08:40→21:00)
[2022-03-23] MEDS: ASCORBIC ACID 500 MG TABLET PO SCH ×2 (08:44→21:00)
[2022-03-23] MEDS: LANSOPRAZOLE 30 MG CAPSULE.DR GT SCH (08:44)
[2022-03-23] MEDS: CARBIDOPA/LEVODOPA 25/100 MG TABLET PO SCH ×3 (08:44→21:00)
[2022-03-23] MEDS: metFORMIN HCL 500 MG TABLET PO SCH ×2 (08:44→17:16)
[2022-03-23] MEDS: CHOLECALCIFEROL (VITAMIN D3) 2,000 UNIT TABLET PO SCH (08:44)
[2022-03-23] MEDS: DOCUSATE SODIUM 100 MG/10 ML UDC PO SCH ×2 (08:44→21:00)
[2022-03-23] MEDS: METOPROLOL TARTRATE 25 MG TABLET GT SCH ×2 (08:45→21:00)
--- NOTE | 2022-03-23 09:10 | NUR ---
RT NOTES Vent back to previous AC settings due to tachypnea and tachycardia. H.R 114 RR low 30s. Rn made aware.
--- NOTE | 2022-03-23 09:13 | NUR ---
RT Hetal, was able to obtain ABG on CPAP trials however patient was becoming tachypneic in the 30s, and tachycardic in the 110s. RT placed patient back on regular ventilator settings, and will inform Dr. Trejo about current situation. No new orders noted at the moment, will reinforce if needed throughout the shift.
--- NOTE | 2022-03-23 10:31 | NUR ---
Patient's family members at bedside, provided nursing updates. No further questions noted at the moment.
--- NOTE | 2022-03-23 11:11 | NUR ---
Nutrition f/u Admitting Diagnosis COVID pneumonia Reviewed Pertinent Medical/Surgical Hx Medical Record Other Medical History Comment: PMH: dementia, DM2, HTN, CVA, COPD, renal Dz, and seizures per physician notes SARS-CoV-2 Ag (Rapid) Positive 02/[address] bedside visit deferred d/t airborne isolation to minimize exposure. TF seen running in room, per EMR vital AF @ 40mL/hr + Edgardo BID via NGT with no residuals noted since 03/19, pt tolerating TF. Per EMR, patient is poorly responsive, intubated/vent. Previous RD noted that pt weight was 75#, however today ELEVATOR INSTALLER clarified pt weight on bed scale, which showed 140 lb/ 63.6 kg. LBM note 03/19. Current Diet Order/Nutrition Support Vital AF 1.2 at 40 ml/hr, Edgardo BID x2, Free Water Flush: 250mL q4h via NGT Patient/Significant Other Unable To Verbalize Education Provided Not Indicated Pertinent Medications VIT D3, VIT C, zinc sulfate, abx, lovenox, NaCl, metformin, apresoline, lopressor, insulin, colace Pertinent Labs BG 156 H, BUN 37 H, Hgb 9.8 L, Hct 30.3 L Height (Feet) 5 feet Height (Inches) 2.00 inches Weight (Pounds) 140 pounds Weight (Calculated Kilograms) 63.6363 kilograms Patient Weight 64 kg Body Mass Index 25.6 kg/m2 %IBW 127 [place]/Adjusted Body Weight 110#/50 kg Recent Weight Change Unable to verify Weight Status Overweight (slightly) Food Allergies Unable to verify Usual Diet At Home Unable to verify Skin Integrity Comment: Michele scale: 9; nursing notes indicate dry scab to anterior forehead and L-knee; posterior coccyx and L/R arm skin tear Estimated Energy Expenditure (kcals/day) 7684-9077 (25-30 kcal/kg d/t vent, overweight BMI) Estimated Protein Required (g/day) 64-96 (1-1.5 gm/kg d/t renal Dz, acute illness, vent) Estimated Fluid Required (l/day) Per physician d/t renal Dz Problem/Etiology/Signs/Symptoms Complicated GI function R/T suspected malabsorption of current TF formula AEB RN report of high GRV given low TF infusion rate of Nepro TF formula (Resolved- tolerating new TF order) Increased energy utilization r/t COVID; vent-dependent a/e/b 25-30 kcal/kg nutrient recommendations (new) Expected Outcomes/Goals - Monitor TF formula w/ goal of pt meeting >80% of estimated nutritional needs, labs trending WNL, normal GI function, and skin integrity Dietitian Recommendations Adjust TF order: Vital AF 1.2 @ 50 ml/hr (goal rate), Edgardo BID, Free Water Flush: per physician d/t renal Dz via NGT Provides: 1440 kcal/day, 90 gm protein/day, and 973 ml free water/day Meets: 90% of lower end of estimated caloric needs and 93% of upper end of estimated protein needs CC, MPH, RDN
--- NOTE | 2022-03-23 14:00 | NUR ---
Performed CHG bath on patient, patient was able to tolerate the big turns and will reinforce if needed throughout the shift.
[2022-03-23] MEDS ORDERED: POTASSIUM CHLORIDE 20 MEQ/PKT PACKET PO ONE (15:45)
[2022-03-23] MEDS: hydrALAZINE HCL 25 MG TABLET PO SCH (21:00)
[2022-03-23] MEDS: ENOXAPARIN SODIUM 30 MG/0.3 ML SYRINGE SUBCUT SCH (21:00)
[2022-03-24] VITALS (34 sets, daily range): BP systolic 97–157
[2022-03-24] MEDS: IPRATROPIUM/ALBUTEROL SULFATE 3 ML AMPUL.NEB (DUONEB) INH SCH ×3 (01:06→14:30)
[2022-03-24] MEDS: ACETAMINOPHEN 325 MG TABLET PO PRN (02:10)
[2022-03-24] MEDS: PIPERACILLIN/TAZO 2.25G/DEX-IS 50 ML IV SCH ×4 (03:58→22:06)
--- NOTE | 2022-03-24 06:00 | NUR ---
--PT ALYSSA ETT-VENT WELL-POX 99-100%. PT HAS THICK-PALE WH.-SPUT. PT HAD LOW-GRADE TEMP THRU THE NIGHT. TYLENOL GIVEN AND COOLING ADAM DONE. IN TO [facility]I PT LAST NIGHT-NO ORDERS. AM LABS PENDING. F/C I/P-300CC OUTYELL/CLOUDY. RECT.T. I/P. IRRIG DONE-200CC OUT-LIQ-BRN. PT ENDORSED TO HARISH SOUZA. TIP MOREIRA
[2022-03-24 06:47] LABS: BASOPHILS # (AUTO) 0.1 K/uL (0.0-0.2); BASOPHILS % (AUTO) 0.6 % (0.0-2.0); EOSINOPHILS # (AUTO) 0.1 K/uL (0.0-0.4); EOSINOPHILS % (AUTO) 0.8 % (0.0-4.0); HEMATOCRIT 26.9 % (36-48); HEMOGLOBIN 9.1 g/dL (12.0-16.0); LYMPHOCYTES # (AUTO) 0.5 K/uL (1.0-5.5); LYMPHOCYTES % (AUTO) 5.2 % (20.5-51.5); MEAN CORPUSCULAR HEMOGLOBIN 30 pg (27-31); MEAN CORPUSCULAR HGB CONC 34 % (32-36); MEAN CORPUSCULAR VOLUME 88 fL (79.0-98.0); MONOCYTES # (AUTO) 0.2 K/uL (0.0-1.0); MONOCYTES % (AUTO) 1.9 % (1.7-9.3); NEUTROPHILS # (AUTO) 9.2 K/uL (1.8-7.7); NEUTROPHILS % (AUTO) 91.5 % (40.0-70.0); PLATELET COUNT (AUTO) 256 K/uL (130-430); RED BLOOD CELL COUNT(AUTO) 3.05 MIL/uL (4.2-6.2); RED CELL DISTRIBUTION WIDTH 17.2 % (9.0-15.0); WHITE BLOOD COUNT (AUTO) 10.1 K/uL (4.8-10.8)
--- NOTE | 2022-03-24 07:30 | NUR ---
PT IN BED, NO ISOLATION, INTUBATED AC 16 30% TV500 PEEP5, SUCTIONED FOR THICK CLEAR ORAL/ETT TUBE SECRETIONS, BILATERAL UPPER EXTREMITY EDEMA WITH WEEPING, BILATERAL LOWER EXTREMITY EDEMA NO WEEPING, GT RUNNING JEVITY1.5 AT 44ML/HR WITH SOME DRAINAGE NOTED AROUND THE SITE, MONSIVAIS DRAINING URINE TO GRAVITY, FLEXISEAL DRAINING BROWN LOOSE STOOL, RIGHT UPPER ARM PICC RUNNING NS TKO, BED IN LOWEST LOCKED POSITION, CALL LIGHT WITHIN REACH, WILL CONTINUE TO MONITOR. SON AT BEDSIDE, EDUCATED ON PLAN OF CARE, ANSWERED ALL QUESTIONS, SON VOICED UNDERSTANDING.
[2022-03-24] MEDS: levETIRAcetam 500 MG in NS 100 ML IV SCH ×2 (08:26→21:00)
[2022-03-24] MEDS: hydrALAZINE HCL 25 MG TABLET PO SCH ×2 (08:27→21:00)
[2022-03-24] MEDS: LANSOPRAZOLE 30 MG CAPSULE.DR GT SCH (08:27)
[2022-03-24] MEDS: ASCORBIC ACID 500 MG TABLET PO SCH ×2 (08:28→21:00)
[2022-03-24] MEDS: CHOLECALCIFEROL (VITAMIN D3) 2,000 UNIT TABLET PO SCH (08:28)
[2022-03-24 08:29] LABS: ANION GAP 16 (5-15); CALCIUM 8.5 mg/dL (8.4-11.0); CHLORIDE 109 mmol/L (98-107); CREATININE 1.28 mg/dL (0.55-1.30); GLUCOSE 217 mg/dL (70-99); POTASSIUM 3.8 mmol/L (3.5-5.1); SODIUM SERUM 144 mmol/L (136-145); UREA NITROGEN, BLOOD 35 mg/dL (8-21)
[2022-03-24] MEDS: metFORMIN HCL 500 MG TABLET PO SCH ×2 (08:29→17:04)
[2022-03-24] MEDS: CARBIDOPA/LEVODOPA 25/100 MG TABLET PO SCH ×3 (08:29→21:00)
[2022-03-24] MEDS: METOPROLOL TARTRATE 25 MG TABLET GT SCH ×2 (08:29→21:00)
[2022-03-24] MEDS: DOCUSATE SODIUM 100 MG/10 ML UDC PO SCH ×2 (08:29→21:00)
--- NOTE | 2022-03-24 08:30 | NUR ---
CHECKED PATIENT GTUBE RESIDUAL, IT IS 450ML OF TUBE FEEDING COLORED OUTPUT, PER PROTOCOL WILL HOLD FEEDING AND RECHECK IN 1HR.
[2022-03-24] MEDS: INSULIN REGULAR, HUMAN 100 UNITS/ML, 10 ML VIAL (humuLIN R) SUBCUT PRN (08:31)
--- NOTE | 2022-03-24 12:10 | NUR ---
Nutrition F/U Admitting Diagnosis COVID pneumonia Reviewed Pertinent Medical/Surgical Hx Medical Record ICU Rounds Primary RN Medical History Comment: PMH: dementia, DM2, HTN, CVA, COPD, renal Dz, and seizures per physician notes SARS-CoV-2 Ag (Rapid) Positive 02/23 & 03/14; COVID-19 (JOSE) Positive 03/06 & 03/10 Subjective Information: RD attended ICU rounds this morning. Primary RN reported that pt had high GRV of 450 ml this morning, so TF had been held; pt has not been under isolation precautions for COVID since 03/15; had a fever last night; pt is edematous/weeping to BUE; flexiseal w/ 200 ml stool output; 200 ml of urine output. RD visited ICU again this afternoon. RN reported that at about 1145, pt had GRV of 250 ml. She stated she would resume TF once GRV under 200 ml as per physician order. RD relayed new TF rec to change back to Vital AF 1.2 TF formula w/ implementation of Edgardo BID and Banatrol BID (banana flakes/prebiotic fibers) to help w/ wound healing and to bulk stool, respectively; RN acknowledged. Per EMR review, pt had GT placement 03/18; physicians are noting that pt my possibly need a tracheostomy soon; Jevity 1.5 infusing today, Vital AF 1.2 infused 03/19; TF rate: 40 ml/hr 03/24; abd is soft w/ active bowel sounds; stool output: 400 ml 03/23. Pt is not yet meeting optimal nutritional needs. Current Diet Order/Nutrition Support: Jevity 1.5 at 40 ml/hr (goal), Free Water Flush: N/A via GT x5 days Patient/Significant Other Unable To Verbalize Education Provided Not Indicated Pertinent Medications: piperacillin/tazobactam, lovenox, levophed, propofol at 6.24 ml/hr (165 kcal/day), glucophage, lopressor, SSI, colace, VIT D3, VIT C, zinc Pertinent Labs: BG 217 H, BUN 35 H/H 9.1 L/26.9 L Height (Feet) 5 feet Height (Inches) 2.00 inches Weight (Pounds) 140 pounds -- bedscale wt 03/23 Patient Weight 64 kg Body Mass Index 25.6 kg/m2 %IBW 127 [place]/Adjusted Body Weight 110#/50 kg Recent Weight Change Unable to verify Weight Status Overweight (slightly) Food Allergies Unable to verify Usual Diet At Home Unable to verify Skin Integrity Comment: Michele scale: 7 -- Intelligent Systems Engineer note 03/15 revealed 1. Anterior Forehead: Black scab from wound of unknown origin, present on admission. 2. Lower Lip: Black scabs from biting. 3. Anterior chin: Dark discolored area of skin. 4. Left Heel: Blanchable redness, present on admission. 5. Right Heel: Blanchable redness, present on admission. 6. Sacral area: Two brown skin areas with dry flaky skin, present on admission. 7. Left Upper Extremity: Pitting edema with copious serous drainage with yellow tint. 8. Right Upper Extremity: Pitting edema with copious serous drainage with yellow tint. Estimated Energy Expenditure (kcals/day) 5363-5767 (25-30 kcal/kg d/t vent, overweight BMI) Estimated Protein Required (g/day) 64-96 (1-1.5 gm/kg d/t renal Dz, acute illness, vent) Estimated Fluid Required (l/day) Per physician d/t renal Dz Problem/Etiology/Signs/Symptoms *MODIFIED* Complicated GI function R/T suspected malabsorption of current TF formula AEB RN report of high GRV and possible intolerance to Jevity 1.5 TF formula. *New Increased energy utilization R/T COVID R/T vent-dependent AEB 25-30 kcal/kg nutrient recommendations. *Ongoing Expected Outcomes/Goals * Monitor TF formula w/ goal of pt meeting >80% of estimated nutritional needs, labs trending WNL, normal GI function, and skin integrity Dietitian Recommendations * Vital AF 1.2 at 50 ml/hr (goal rate), Edgardo BID, Banatrol BID, Free Water Flush: research hydrologist d/t renal Dz via GT Provides: 1600 kcal/day, 95 gm protein/day, and 973 ml free water/day Meets: 100% of lower end of estimated caloric needs and 94% of upper end of estimated protein needs Follow Up High Risk: F/U in 2-3 days
--- NOTE | 2022-03-24 12:20 | NUR ---
Dietitian Recommendations * Vital AF 1.2 at 50 ml/hr (goal rate), Edgardo BID, Banatrol BID, Free Water Flush: maple syrup maker d/t renal Dz via GT Provides: 1600 kcal/day, 95 gm protein/day, and 973 ml free water/day Meets: 100% of lower end of estimated caloric needs and 94% of upper end of estimated protein needs LP, MS, RD Please refer to Nutrition F/U for details.
[2022-03-24] MEDS: ENOXAPARIN SODIUM 30 MG/0.3 ML SYRINGE SUBCUT SCH (21:00)
[2022-03-24] MEDS ORDERED: METHYLPREDNISOLONE SOD SUCC 40 MG/ML VIAL ONE (23:34)
[2022-03-24] MEDS: methylPREDNISolone SOD SUCC/PF 62.5 MG/ML VIAL IVP SCH (23:41)
[2022-03-25] VITALS (35 sets, daily range): BP systolic 95–138
[2022-03-25] MEDS: PIPERACILLIN/TAZO 2.25G/DEX-IS 50 ML IV SCH ×4 (04:00→21:57)
[2022-03-25] MEDS ORDERED: METHYLPREDNISOLONE SOD SUCC 40 MG/ML VIAL ONE (05:41)
[2022-03-25] MEDS: methylPREDNISolone SOD SUCC/PF 62.5 MG/ML VIAL IVP SCH ×3 (05:48→20:58)
[2022-03-25 06:29] LABS: BASOPHILS % (AUTO) 0.3 % (0.0-2.0); EOSINOPHILS % (AUTO) 0.2 % (0.0-4.0); HEMATOCRIT 23.1 % (36-48); HEMOGLOBIN 7.8 g/dL (12.0-16.0); LYMPHOCYTES # (AUTO) 0.5 K/uL (1.0-5.5); LYMPHOCYTES % (AUTO) 5.7 % (20.5-51.5); MEAN CORPUSCULAR HEMOGLOBIN 29 pg (27-31); MEAN CORPUSCULAR HGB CONC 34 % (32-36); MEAN CORPUSCULAR VOLUME 87 fL (79.0-98.0); MONOCYTES # (AUTO) 0.1 K/uL (0.0-1.0); NEUTROPHILS # (AUTO) 8.7 K/uL (1.8-7.7); NEUTROPHILS % (AUTO) 92.8 % (40.0-70.0); PLATELET COUNT (AUTO) 266 K/uL (130-430); RED BLOOD CELL COUNT(AUTO) 2.65 MIL/uL (4.2-6.2); RED CELL DISTRIBUTION WIDTH 17.5 % (9.0-15.0); WHITE BLOOD COUNT (AUTO) 9.3 K/uL (4.8-10.8)
[2022-03-25 06:48] LABS: ANION GAP 9 (5-15); CALCIUM 9.7 mg/dL (8.4-11.0); CHLORIDE 110 mmol/L (98-107); CREATININE 1.21 mg/dL (0.55-1.30); GLUCOSE 138 mg/dL (70-99); POTASSIUM 3.5 mmol/L (3.5-5.1); SODIUM SERUM 142 mmol/L (136-145); UREA NITROGEN, BLOOD 35 mg/dL (8-21)
--- NOTE | 2022-03-25 07:15 | NUR ---
OPENING NOTES: RECEIVED PATIENT FROM [facility], PATIENT LETHARGIC AND RESPONDS TO TACTILE STIMULI. PATIENT HAS A ERIKA PICC WITH NS RUNNING AT 20 ML/HR. G-TUBE WITH VITAL AF 1.2 RUNNING AT 10, GOAL IS 50, PATIENT HAS HIGH RESIDUALS. PATIENT IS SR WITH NO FEVER. PATIENT HAS A WOUND ON THE SACRAL COVERED WITH A FOAM DRESSING, LEFT LEG BLISTER THAT IS RUPTURED COVERED WITH A FOAM DRESSING, RIGHT LOWER LEG BLISTERED INTACT, REDNESS THAT IS BLANCHABLE ON LEFT AND RIGHT CALF OPEN TO AIR, FOREHEAD SCAB, AND LEFT ARM SKIN TEAR. PATIENT HAS A PATIENT MONSIVAIS AND FLEXSEAL. HEELS ARE FLOATED ON PILLOW. VENT SETTINGS ARE AC 16, 500, 30%, 8. PATIENT HAS A LEFT WRIST RESTRAINT THAT WAS RENEWED TODAY, BED IS AT THE LOWEST LEVEL, BRAKES ARE LOCKED, 3 SIDE RAILS UP, AND CALL LIGHT WITH IN REACH. Addendum: 03/26/22 at 0634 by Kay Thurman RN ADDENDUM TIME: TIME IS 1914
[2022-03-25] MEDS: IPRATROPIUM/ALBUTEROL SULFATE 3 ML AMPUL.NEB (DUONEB) INH SCH ×2 (08:15→23:06)
[2022-03-25] MEDS: metFORMIN HCL 500 MG TABLET PO SCH ×2 (09:03→20:57)
[2022-03-25] MEDS: LANSOPRAZOLE 30 MG CAPSULE.DR GT SCH (09:03)
[2022-03-25] MEDS: levETIRAcetam 500 MG in NS 100 ML IV SCH ×2 (09:04→21:44)
[2022-03-25] MEDS: CARBIDOPA/LEVODOPA 25/100 MG TABLET PO SCH ×3 (09:05→20:38)
[2022-03-25] MEDS: DOCUSATE SODIUM 100 MG/10 ML UDC PO SCH ×2 (09:05→20:38)
[2022-03-25] MEDS: ASCORBIC ACID 500 MG TABLET PO SCH ×2 (09:06→20:39)
[2022-03-25] MEDS: CHOLECALCIFEROL (VITAMIN D3) 2,000 UNIT TABLET PO SCH (09:06)
[2022-03-25] MEDS: hydrALAZINE HCL 25 MG TABLET PO SCH ×2 (09:07→20:39)
[2022-03-25] MEDS: METOPROLOL TARTRATE 25 MG TABLET GT SCH ×2 (09:07→20:39)
[2022-03-25] MEDS: ENOXAPARIN SODIUM 30 MG/0.3 ML SYRINGE SUBCUT SCH (20:39)
[2022-03-26] VITALS (30 sets, daily range): BP systolic 94–142
[2022-03-26] MEDS: methylPREDNISolone SOD SUCC/PF 62.5 MG/ML VIAL IVP SCH ×4 (01:00→18:34)
[2022-03-26] MEDS: IPRATROPIUM/ALBUTEROL SULFATE 3 ML AMPUL.NEB (DUONEB) INH SCH ×5 (02:26→19:52)
[2022-03-26] MEDS: PIPERACILLIN/TAZO 2.25G/DEX-IS 50 ML IV SCH ×4 (03:23→22:00)
[2022-03-26 07:12] LABS: BASOPHILS % (AUTO) 0.4 % (0.0-2.0); EOSINOPHILS % (AUTO) 0.1 % (0.0-4.0); HEMOGLOBIN 7.6 g/dL (12.0-16.0); LYMPHOCYTES # (AUTO) 0.5 K/uL (1.0-5.5); LYMPHOCYTES % (AUTO) 4.1 % (20.5-51.5); MEAN CORPUSCULAR HEMOGLOBIN 29 pg (27-31); MEAN CORPUSCULAR HGB CONC 33 % (32-36); MEAN CORPUSCULAR VOLUME 87 fL (79.0-98.0); MONOCYTES # (AUTO) 0.3 K/uL (0.0-1.0); MONOCYTES % (AUTO) 2.2 % (1.7-9.3); NEUTROPHILS # (AUTO) 10.7 K/uL (1.8-7.7); NEUTROPHILS % (AUTO) 93.2 % (40.0-70.0); PLATELET COUNT (AUTO) 324 K/uL (130-430); RED BLOOD CELL COUNT(AUTO) 2.64 MIL/uL (4.2-6.2); RED CELL DISTRIBUTION WIDTH 17.5 % (9.0-15.0); WHITE BLOOD COUNT (AUTO) 11.4 K/uL (4.8-10.8)
[2022-03-26 07:47] LABS: ALANINE AMINOTRANSFERASE 1 U/L (12-78); ANION GAP 11 (5-15); ASPARTATE AMINOTRANSFERASE 15 U/L (10-37); CALCIUM 9.6 mg/dL (8.4-11.0); CHLORIDE 110 mmol/L (98-107); CREATININE 1.26 mg/dL (0.55-1.30); GLUCOSE 200 mg/dL (70-99); POTASSIUM 3.5 mmol/L (3.5-5.1); SODIUM SERUM 142 mmol/L (136-145); TOTAL BILIRUBIN 0.2 mg/dL (0.0-1.0); UREA NITROGEN, BLOOD 39 mg/dL (8-21)
--- NOTE | 2022-03-26 07:57 | NUR ---
0755 PT ON CPAP TRIAL. CPAP5 PS 10. HR102 RR 26 SAT 97% WILL CONT TO MONITOR. Addendum: 03/26/22 at 0758 by Dee Pedraza RT Amended: Links added.
[2022-03-26] MEDS: metFORMIN HCL 500 MG TABLET PO SCH ×2 (09:12→18:33)
[2022-03-26] MEDS: LANSOPRAZOLE 30 MG CAPSULE.DR GT SCH (09:12)
[2022-03-26] MEDS: CHOLECALCIFEROL (VITAMIN D3) 2,000 UNIT TABLET PO SCH (09:13)
[2022-03-26] MEDS: DOCUSATE SODIUM 100 MG/10 ML UDC PO SCH ×2 (09:13→22:07)
[2022-03-26] MEDS: levETIRAcetam 500 MG in NS 100 ML IV SCH ×2 (09:13→21:00)
[2022-03-26] MEDS: CARBIDOPA/LEVODOPA 25/100 MG TABLET PO SCH ×3 (09:13→22:07)
[2022-03-26] MEDS: ASCORBIC ACID 500 MG TABLET PO SCH ×2 (09:14→22:08)
[2022-03-26] MEDS: hydrALAZINE HCL 25 MG TABLET PO SCH ×2 (09:14→22:07)
[2022-03-26] MEDS: METOPROLOL TARTRATE 25 MG TABLET GT SCH ×2 (09:15→22:08)
--- NOTE | 2022-03-26 14:19 | NUR ---
CONSULTATION PAGED/CALLED Reason for Consultation: ALOC Person Who was Notified: Dr. Perez Consulting Physician: Dr. Perez Ordnance Truck Installation Mechanic Specialty: Neurology Ordering Physician: Dr. Trejo
--- NOTE | 2022-03-26 17:06 | NUR ---
1610 PT CHANGED TO AC. TOLERATING WELL. Addendum: 03/26/22 at 1707 by Dee Pedraza RT Amended: Links added.
[2022-03-26] MEDS: ENOXAPARIN SODIUM 30 MG/0.3 ML SYRINGE SUBCUT SCH (21:00)
[2022-03-27] VITALS (33 sets, daily range): BP systolic 95–153
[2022-03-27] MEDS: methylPREDNISolone SOD SUCC/PF 62.5 MG/ML VIAL IVP SCH ×4 (00:59→18:00)
[2022-03-27] MEDS: IPRATROPIUM/ALBUTEROL SULFATE 3 ML AMPUL.NEB (DUONEB) INH SCH ×4 (01:17→19:56)
[2022-03-27] MEDS: PIPERACILLIN/TAZO 2.25G/DEX-IS 50 ML IV SCH ×3 (04:39→18:00)
--- NOTE | 2022-03-27 06:00 | NUR ---
[id number] CONT. ON VENT VIA ETT. POX 100-99%. IV I/P VIA R.ARM PICC-LINE. PT HAD RESID OF 300CC-T.FEEDG HELD X1HR. LATER IN SHIFT GT LEAKING GASTRIC FLUID. T.FEEDG HELD AT 0630. CN NICO INFORMED. PT HAS BEEN IN SR. BUT HAD S.TACH AT SHIFT CHANGE BRIEFLY. BATH AND LINEN CHANGE DONE. U/O 300CC OUT. RECT.T INTACT-100CC OUT-BRN LIQ. PT OPENS EYES OCCASS. PT ENDORSED TO HARISH MARTÍNEZ. VS STABLE. AFEBRILE. TIP MOREIRA
[2022-03-27 07:04] LABS: BASOPHILS % (AUTO) 0.2 % (0.0-2.0); HEMATOCRIT 24.6 % (36-48); HEMOGLOBIN 8.1 g/dL (12.0-16.0); LYMPHOCYTES # (AUTO) 0.5 K/uL (1.0-5.5); MEAN CORPUSCULAR HEMOGLOBIN 29 pg (27-31); MEAN CORPUSCULAR HGB CONC 33 % (32-36); MEAN CORPUSCULAR VOLUME 88 fL (79.0-98.0); MONOCYTES # (AUTO) 0.3 K/uL (0.0-1.0); NEUTROPHILS # (AUTO) 8.5 K/uL (1.8-7.7); NEUTROPHILS % (AUTO) 91.8 % (40.0-70.0); PLATELET COUNT (AUTO) 345 K/uL (130-430); RED BLOOD CELL COUNT(AUTO) 2.79 MIL/uL (4.2-6.2); RED CELL DISTRIBUTION WIDTH 17.6 % (9.0-15.0); WHITE BLOOD COUNT (AUTO) 9.2 K/uL (4.8-10.8)
[2022-03-27 07:54] LABS: ANION GAP 12 (5-15); CALCIUM 9.6 mg/dL (8.4-11.0); CHLORIDE 120 mmol/L (98-107); CREATININE 1.28 mg/dL (0.55-1.30); GLUCOSE 212 mg/dL (70-99); POTASSIUM 3.5 mmol/L (3.5-5.1); SODIUM SERUM 156 mmol/L (136-145); UREA NITROGEN, BLOOD 37 mg/dL (8-21)
[2022-03-27] MEDS: LANSOPRAZOLE 30 MG CAPSULE.DR GT SCH (10:57)
[2022-03-27] MEDS: metFORMIN HCL 500 MG TABLET PO SCH (10:57)
[2022-03-27] MEDS: METOPROLOL TARTRATE 25 MG TABLET GT SCH ×2 (10:58→21:00)
[2022-03-27] MEDS: levETIRAcetam 500 MG in NS 100 ML IV SCH ×2 (10:59→22:03)
[2022-03-27] MEDS: DOCUSATE SODIUM 100 MG/10 ML UDC PO SCH ×2 (11:00→21:00)
[2022-03-27] MEDS: CARBIDOPA/LEVODOPA 25/100 MG TABLET PO SCH ×3 (11:00→21:00)
[2022-03-27] MEDS: hydrALAZINE HCL 25 MG TABLET PO SCH ×2 (11:00→21:00)
[2022-03-27] MEDS: ASCORBIC ACID 500 MG TABLET PO SCH ×2 (11:01→21:00)
[2022-03-27] MEDS: CHOLECALCIFEROL (VITAMIN D3) 2,000 UNIT TABLET PO SCH (11:01)
--- NOTE | 2022-03-27 13:23 | NUR ---
Nutrition F/U Admitting Diagnosis COVID pneumonia Reviewed Pertinent Medical/Surgical Hx Medical Record Medical History Comment: PMH: dementia, DM2, HTN, CVA, COPD, renal Dz, and seizures per physician notes SARS-CoV-2 Ag (Rapid) Positive 02/23 & 03/14; COVID-19 (JOSE) Positive 03/06 & 03/10 Subjective Information: primary RN providing care to other patient at time of visit, per notes, GRV 300 ml @ 0600, TF currently infusing @ 10 ml/h; pt has not been under isolation precautions for COVID since 03/15; flexiseal w/ 100 ml stool output; Vital AF 1.2 TF formula w/ Edgardo BID to support healing and Banatrol BID (banana flakes/prebiotic fibers) to bulk stool. Per EMR review, pt had GT placement 03/18; abd is soft w/ active bowel sounds; Pt is not yet meeting optimal nutritional needs. Current Diet Order/Nutrition Support: Vital AF @ 10 ml/h w/ increase to goal rate of 50 ml/h (goal), Free Water Flush: N/A via GT x8 days; per MD order: hold TF if residual >200 ml, resume TF if residual <100 ml Patient/Significant Other Unable To Verbalize Education Provided Not Indicated Pertinent Medications: piperacillin/tazobactam, lovenox, levophed, propofol at 1.5 ml/hr (40 kcal/day), glucophage, lopressor, SSI, colace, VIT D3, VIT C, zinc Pertinent Labs: BG 212 H, POC glu 176-193 H Height (Feet) 5 feet Height (Inches) 2.00 inches Weight (Pounds) 140 pounds -- bedscale wt 03/23 Patient Weight 64 kg Body Mass Index 25.6 kg/m2 %IBW 127 [place]/Adjusted Body Weight 110#/50 kg Recent Weight Change Unable to verify Weight Status Overweight (slightly) Food Allergies Unable to verify Usual Diet At Home Unable to verify Skin Integrity Comment: Michele scale: 9 03/27/22 @ 0400 -- Dialysis Registered Nurse note 03/15 revealed 1. Anterior Forehead: Black scab from wound of unknown origin, present on admission. 2. Lower Lip: Black scabs from biting. 3. Anterior chin: Dark discolored area of skin. 4. Left Heel: Blanchable redness, present on admission. 5. Right Heel: Blanchable redness, present on admission. 6. Sacral area: Two brown skin areas with dry flaky skin, present on admission. 7. Left Upper Extremity: Pitting edema with copious serous drainage with yellow tint. 8. Right Upper Extremity: Pitting edema with copious serous drainage with yellow tint. Estimated Energy Expenditure (kcals/day) 4418-6920 (25-30 kcal/kg d/t vent, overweight BMI) Estimated Protein Required (g/day) 64-96 (1-1.5 gm/kg d/t renal Dz, acute illness, vent) Estimated Fluid Required (l/day) Per physician d/t renal Dz Problem/Etiology/Signs/Symptoms *Ongoing Complicated GI function R/T suspected malabsorption of current TF formula AEB RN report of high GRV and possible intolerance to TF *New Increased energy utilization R/T COVID R/T vent-dependent AEB 25-30 kcal/kg nutrient recommendations. *Ongoing Expected Outcomes/Goals * Monitor TF formula w/ goal of pt meeting >80% of estimated nutritional needs, labs trending WNL, normal GI function, and skin integrity Dietitian Recommendations * Vital AF 1.2 at 50 ml/hr (goal rate), Edgardo BID, Banatrol BID, Free Water Flush: board setter d/t renal Dz via GT Provides: 1600 kcal/day, 95 gm protein/day, and 973 ml free water/day Meets: 100% of lower end of estimated caloric needs and 94% of upper end of estimated protein needs Follow Up High Risk: F/U in 2-3 days
--- NOTE | 2022-03-27 20:34 | NUR ---
DR. MONICA PRINGLE PAGED AT THIS TIME FOR ORDERS. SPOKE WITH AURELIO AT THE EXCHANGE.
[2022-03-27] MEDS: ENOXAPARIN SODIUM 30 MG/0.3 ML SYRINGE SUBCUT SCH (21:00)
[2022-03-28] VITALS (34 sets, daily range): BP systolic 90–152
[2022-03-28] MEDS: IPRATROPIUM/ALBUTEROL SULFATE 3 ML AMPUL.NEB (DUONEB) INH SCH ×4 (01:10→19:55)
[2022-03-28] MEDS: methylPREDNISolone SOD SUCC/PF 62.5 MG/ML VIAL IVP SCH ×4 (06:00→18:22)
[2022-03-28] MEDS: PIPERACILLIN/TAZO 2.25G/DEX-IS 50 ML IV SCH ×4 (06:00→18:22)
[2022-03-28] MEDS: metFORMIN HCL 500 MG TABLET PO SCH ×3 (07:40→18:22)
[2022-03-28 08:08] LABS: BASOPHILS % (AUTO) 0.2 % (0.0-2.0); HEMATOCRIT 23.6 % (36-48); HEMOGLOBIN 7.8 g/dL (12.0-16.0); LYMPHOCYTES # (AUTO) 0.5 K/uL (1.0-5.5); LYMPHOCYTES % (AUTO) 3.2 % (20.5-51.5); MEAN CORPUSCULAR HEMOGLOBIN 29 pg (27-31); MEAN CORPUSCULAR HGB CONC 33 % (32-36); MEAN CORPUSCULAR VOLUME 87 fL (79.0-98.0); MONOCYTES # (AUTO) 0.2 K/uL (0.0-1.0); MONOCYTES % (AUTO) 1.2 % (1.7-9.3); NEUTROPHILS # (AUTO) 15.9 K/uL (1.8-7.7); NEUTROPHILS % (AUTO) 95.4 % (40.0-70.0); PLATELET COUNT (AUTO) 386 K/uL (130-430); RED BLOOD CELL COUNT(AUTO) 2.71 MIL/uL (4.2-6.2); RED CELL DISTRIBUTION WIDTH 16.9 % (9.0-15.0); WHITE BLOOD COUNT (AUTO) 16.7 K/uL (4.8-10.8)
[2022-03-28] MEDS ORDERED: PROPOFOL DRIP 100 ML IV PRN (09:15)
[2022-03-28] MEDS ORDERED: LORazepam 2 MG/ML VIAL IVP PRN (09:15)
[2022-03-28 09:24] LABS: ALANINE AMINOTRANSFERASE 0 U/L (12-78); ANION GAP 11 (5-15); ASPARTATE AMINOTRANSFERASE 13 U/L (10-37); CALCIUM 9.4 mg/dL (8.4-11.0); CHLORIDE 116 mmol/L (98-107); CREATININE 1.14 mg/dL (0.55-1.30); GLUCOSE 168 mg/dL (70-99); SODIUM SERUM 149 mmol/L (136-145); TOTAL BILIRUBIN 0.3 mg/dL (0.0-1.0); UREA NITROGEN, BLOOD 35 mg/dL (8-21)
[2022-03-28 09:36] LABS: POTASSIUM 2.6 mmol/L (3.5-5.1)
[2022-03-28] MEDS: LANSOPRAZOLE 30 MG CAPSULE.DR GT SCH (10:20)
[2022-03-28] MEDS: CARBIDOPA/LEVODOPA 25/100 MG TABLET PO SCH ×3 (10:21→21:00)
[2022-03-28] MEDS: levETIRAcetam 500 MG in NS 100 ML IV SCH ×2 (10:21→21:00)
[2022-03-28] MEDS: DOCUSATE SODIUM 100 MG/10 ML UDC PO SCH ×2 (10:21→21:00)
[2022-03-28] MEDS: CHOLECALCIFEROL (VITAMIN D3) 2,000 UNIT TABLET PO SCH (10:22)
[2022-03-28] MEDS: ASCORBIC ACID 500 MG TABLET PO SCH ×2 (10:22→21:00)
[2022-03-28] MEDS: METOPROLOL TARTRATE 25 MG TABLET GT SCH ×2 (10:23→21:00)
[2022-03-28] MEDS: hydrALAZINE HCL 25 MG TABLET PO SCH ×2 (10:23→21:00)
[2022-03-28] MEDS ORDERED: KCL 40 mEq in 100 mL (PREMIX) 100 ML IV ONE ×2 (11:15→11:42)
[2022-03-28] MEDS ORDERED: POTASSIUM CHLORIDE 40 MEQ in NS 250 ML IV ONE (12:00)
[2022-03-28] MEDS ORDERED: MAGNESIUM SULFATE 50 ML IV ONE (18:58)
[2022-03-28] MEDS: ENOXAPARIN SODIUM 30 MG/0.3 ML SYRINGE SUBCUT SCH (21:00)
[2022-03-28] MEDS: METHYLPREDNISOLONE SOD SUCC 40 MG/ML VIAL IVP SCH (22:00)
--- NOTE | 2022-03-28 22:18 | NUR ---
CONSULTATION PAGED/CALLED Reason for Consultation: TRACHEOSTOMY PLACEMENT Person Who was Notified: DR. DELGADILLO Consulting Physician: DR. DELGADILLO [employer] Director Specialty: SURGERY Ordering Physician: DR. ZAMUDIO
[2022-03-28] MEDS: D5/0.45 NS 1,000 ML IV SCH (23:15)
[2022-03-29] VITALS (34 sets, daily range): BP systolic 102–131
[2022-03-29 01:12] LABS: ANION GAP 11 (5-15); CALCIUM 9.1 mg/dL (8.4-11.0); CHLORIDE 117 mmol/L (98-107); CREATININE 1.21 mg/dL (0.55-1.30); GLUCOSE 195 mg/dL (70-99); POTASSIUM 3.4 mmol/L (3.5-5.1); SODIUM SERUM 149 mmol/L (136-145); UREA NITROGEN, BLOOD 34 mg/dL (8-21)
[2022-03-29] MEDS: IPRATROPIUM/ALBUTEROL SULFATE 3 ML AMPUL.NEB (DUONEB) INH SCH ×4 (01:20→20:20)
[2022-03-29] MEDS: ACETAMINOPHEN 325 MG TABLET PO PRN (02:29)
[2022-03-29] MEDS: METHYLPREDNISOLONE SOD SUCC 40 MG/ML VIAL IVP SCH ×3 (06:20→21:20)
[2022-03-29] MEDS: PIPERACILLIN/TAZO 2.25G/DEX-IS 50 ML IV SCH ×2 (06:21)
[2022-03-29 06:46] LABS: BASOPHILS % (AUTO) 0.1 % (0.0-2.0); HEMOGLOBIN 7.1 g/dL (12.0-16.0); LYMPHOCYTES # (AUTO) 0.7 K/uL (1.0-5.5); MEAN CORPUSCULAR HEMOGLOBIN 30 pg (27-31); MEAN CORPUSCULAR HGB CONC 34 % (32-36); MEAN CORPUSCULAR VOLUME 88 fL (79.0-98.0); MONOCYTES # (AUTO) 0.3 K/uL (0.0-1.0); MONOCYTES % (AUTO) 2.8 % (1.7-9.3); NEUTROPHILS # (AUTO) 8.4 K/uL (1.8-7.7); NEUTROPHILS % (AUTO) 90.1 % (40.0-70.0); PLATELET COUNT (AUTO) 347 K/uL (130-430); RED BLOOD CELL COUNT(AUTO) 2.39 MIL/uL (4.2-6.2); RED CELL DISTRIBUTION WIDTH 17.3 % (9.0-15.0); WHITE BLOOD COUNT (AUTO) 9.4 K/uL (4.8-10.8)
[2022-03-29 07:38] LABS: ANION GAP 12 (5-15); CALCIUM 9.3 mg/dL (8.4-11.0); CHLORIDE 117 mmol/L (98-107); CREATININE 1.17 mg/dL (0.55-1.30); GLUCOSE 199 mg/dL (70-99); POTASSIUM 3.4 mmol/L (3.5-5.1); SODIUM SERUM 150 mmol/L (136-145); UREA NITROGEN, BLOOD 33 mg/dL (8-21)
--- NOTE | 2022-03-29 07:47 | NUR ---
RT NOTES Pt will undergo tracheostomy today, will hold off on cPAP trial. RN in agreement with RN.
[2022-03-29] MEDS: METOPROLOL TARTRATE 25 MG TABLET GT SCH ×2 (09:22→21:21)
[2022-03-29] MEDS: LANSOPRAZOLE 30 MG CAPSULE.DR GT SCH (09:22)
[2022-03-29] MEDS: levETIRAcetam 500 MG in NS 100 ML IV SCH ×2 (09:23→21:22)
[2022-03-29] MEDS: hydrALAZINE HCL 25 MG TABLET PO SCH ×2 (09:24→21:21)
[2022-03-29] MEDS: ASCORBIC ACID 500 MG TABLET PO SCH ×2 (09:24→21:21)
[2022-03-29] MEDS: CARBIDOPA/LEVODOPA 25/100 MG TABLET PO SCH ×3 (09:24→21:20)
[2022-03-29] MEDS: DOCUSATE SODIUM 100 MG/10 ML UDC PO SCH ×2 (09:24→21:20)
[2022-03-29] MEDS: CHOLECALCIFEROL (VITAMIN D3) 2,000 UNIT TABLET PO SCH (09:24)
[2022-03-29] MEDS: metFORMIN HCL 500 MG TABLET PO SCH ×2 (09:25→18:47)
[2022-03-29] MEDS ORDERED: CEFAZOLIN 1 GM IVPB PREMIX 50 ML IV ONE (12:00)
[2022-03-29] MEDS: INSULIN REGULAR, HUMAN 100 UNITS/ML, 10 ML VIAL (humuLIN R) SUBCUT PRN ×3 (12:51→23:46)
--- NOTE | 2022-03-29 19:10 | NUR ---
Received report from HARISH Swenson and assumed patient care.
--- NOTE | 2022-03-29 19:15 | NUR ---
Dr. Trejo at bedside, informed MD about the findings of the maggots from patient's mouth. MD made family aware, no new orders noted at the moment.
[2022-03-29] MEDS: D5/0.45 NS 1,000 ML IV SCH (19:30)
--- NOTE | 2022-03-29 19:45 | NUR ---
Patient's family at bedside, patient's daughter (Flory). Provided nursing updates, and Flory had no further questions noted at the moment. Will reinforce if needed throughout the shift.
--- NOTE | 2022-03-29 20:00 | NUR ---
Performed thorough oral care with hydrogen peroxide with RT at bedside, patient tolerated the oral cleaning, and no maggots noticed during the cleaning and the suctioning, will reinforce if needed throughout the shift.
[2022-03-29] MEDS: ENOXAPARIN SODIUM 30 MG/0.3 ML SYRINGE SUBCUT SCH (21:20)
[2022-03-30] VITALS (32 sets, daily range): BP systolic 105–167
--- NOTE | 2022-03-30 | NUR ---
Performed thorough oral care with hydrogen peroxide, patient tolerated the oral cleaning, and no maggots noticed during the cleaning and the suctioning, will reinforce if needed throughout the shift.
--- NOTE | 2022-03-30 | NUR ---
Followed up with lab regarding patient's type and cross result since it is still pending, according to Khloe from lab, still pending due to short staff. Will follow up again in my shift, studio operations engineer in charge (Cathy) is aware, no new orders noted at the moment.
[2022-03-30] MEDS: IPRATROPIUM/ALBUTEROL SULFATE 3 ML AMPUL.NEB (DUONEB) INH SCH ×4 (00:45→20:30)
--- NOTE | 2022-03-30 02:59 | NUR ---
Followed up with lab regarding patient's Type and Screen in order to give blood prior to patient's possible surgery tomorrow at 0900. Spoke to paula Boucher, she will follow up. Will reinforce if needed throughout the shift.
--- NOTE | 2022-03-30 03:40 | NUR ---
Performed CHG bath on patient, patient was able to tolerate the big turns and had no further complications noted at the moment. Will reinforce if needed throughout the shift.
--- NOTE | 2022-03-30 04:35 | NUR ---
Called Khloe, from lab and expressed the importance of getting the result in order to give PRBC before patient's possible surgery for tracheostomy in the morning, business systems technician is aware and battery charger tester (Cathy) is aware of the situation. No new orders noted at the moment, will reinforce if needed throughout the shift.
[2022-03-30] MEDS: METHYLPREDNISOLONE SOD SUCC 40 MG/ML VIAL IVP SCH ×3 (05:50→21:05)
--- NOTE | 2022-03-30 06:10 | NUR ---
Dr. Moreno called nursing supervisor cook house, Jordon whom was at bedside and was informed that surgery will be cancelled for today due to emergency, MD is ok with putting patient back on tube feeds until further notice. Will reinforce if needed throughout the shift. central processing tech (Cathy) is aware.
[2022-03-30 08:00] LABS: INR 1.1 (0.8-1.2); PROTHROMBIN TIME 11.6 SECS (9.5-12.5)
--- NOTE | 2022-03-30 08:08 | NUR ---
pt's daughter called and was informed that dr sanford cancelled tracheostomy today due some other medical emergency. Told her that as ordered we will resume feeding and give meds. called again dietary for the the tube feeding fomula.
--- NOTE | 2022-03-30 08:14 | NUR ---
pt's son here and demanding to talk to dr sanford re cancellation of the tracheostomy. dr sanford now being paged by unit sect.
[2022-03-30 08:17] LABS: ANION GAP 12 (5-15); CALCIUM 9.4 mg/dL (8.4-11.0); CHLORIDE 117 mmol/L (98-107); CREATININE 1.09 mg/dL (0.55-1.30); GLUCOSE 170 mg/dL (70-99); SODIUM SERUM 148 mmol/L (136-145); UREA NITROGEN, BLOOD 31 mg/dL (8-21)
--- NOTE | 2022-03-30 08:25 | NUR ---
PT CAME IN FROM SURGERY S/P TRACHEOSTOMY. PT ON STABLE CONDITON. VITAL WNL, NO FEVER. TEMP WAS 98 AXILLARY.
[2022-03-30 08:26] LABS: BASOPHILS % (AUTO) 0.4 % (0.0-2.0); EOSINOPHILS % (AUTO) 0.2 % (0.0-4.0); HEMOGLOBIN 7.1 g/dL (12.0-16.0); LYMPHOCYTES # (AUTO) 0.4 K/uL (1.0-5.5); LYMPHOCYTES % (AUTO) 5.6 % (20.5-51.5); MEAN CORPUSCULAR HEMOGLOBIN 30 pg (27-31); MEAN CORPUSCULAR HGB CONC 33 % (32-36); MEAN CORPUSCULAR VOLUME 89 fL (79.0-98.0); MONOCYTES # (AUTO) 0.3 K/uL (0.0-1.0); MONOCYTES % (AUTO) 3.5 % (1.7-9.3); NEUTROPHILS # (AUTO) 7.1 K/uL (1.8-7.7); NEUTROPHILS % (AUTO) 90.3 % (40.0-70.0); PLATELET COUNT (AUTO) 347 K/uL (130-430); RED BLOOD CELL COUNT(AUTO) 2.42 MIL/uL (4.2-6.2); RED CELL DISTRIBUTION WIDTH 17.4 % (9.0-15.0); WHITE BLOOD COUNT (AUTO) 7.9 K/uL (4.8-10.8)
[2022-03-30] MEDS: CARBIDOPA/LEVODOPA 25/100 MG TABLET PO SCH ×3 (08:33→20:53)
[2022-03-30] MEDS: LANSOPRAZOLE 30 MG CAPSULE.DR GT SCH (08:33)
[2022-03-30] MEDS: metFORMIN HCL 500 MG TABLET PO SCH ×2 (08:34→15:49)
[2022-03-30] MEDS: ASCORBIC ACID 500 MG TABLET PO SCH ×2 (08:34→20:54)
[2022-03-30] MEDS: CHOLECALCIFEROL (VITAMIN D3) 2,000 UNIT TABLET PO SCH (08:34)
[2022-03-30 08:35] LABS: HEMATOCRIT 21.4 % (36-48)
[2022-03-30] MEDS: hydrALAZINE HCL 25 MG TABLET PO SCH ×2 (08:35→20:53)
[2022-03-30] MEDS: METOPROLOL TARTRATE 25 MG TABLET GT SCH ×2 (08:35→20:54)
[2022-03-30] MEDS: levETIRAcetam 500 MG in NS 100 ML IV SCH ×2 (08:36→20:57)
[2022-03-30] MEDS: DOCUSATE SODIUM 100 MG/10 ML UDC PO SCH ×2 (08:36→20:52)
[2022-03-30 09:09] LABS: POTASSIUM 2.8 mmol/L (3.5-5.1)
--- NOTE | 2022-03-30 09:44 | NUR ---
pt's son spoke with dr loya on the phone.
--- NOTE | 2022-03-30 09:50 | NUR ---
RT NOTES Per RN, tracheostomy was postponed. Per stading order, vent to CPAP 5 PS 10. No adverse reactions noted. will monitor pt. Son and Dtr at bedside
--- NOTE | 2022-03-30 10:19 | NUR ---
pt's daughter talking to dr arias re blood transfusion.
[2022-03-30] MEDS ORDERED: POTASSIUM CHLORIDE 40 MEQ in NS 250 ML IV ONE (10:30)
--- NOTE | 2022-03-30 10:30 | NUR ---
Spoke to Dr DELGADILLO and updated MD regarding latest labs and findings. I was told that the tracheostomy placement will be done between 5 and 6pm today. I will also update family about the plans and procedures lined up for today.
--- NOTE | 2022-03-30 11:05 | NUR ---
supervisor in charge liv informed pt's daughter at bedside about surgery today at bet 5-[address] liv spoke with dr sanford .
[2022-03-30] MEDS: D5/0.45 NS 1,000 ML IV SCH ×2 (15:15→18:50)
--- NOTE | 2022-03-30 15:19 | NUR ---
Nutrition F/U Admitting Diagnosis COVID pneumonia Reviewed Pertinent Medical/Surgical Hx Medical Record ICU Rounds Medical History Comment: PMH: dementia, DM2, HTN, CVA, COPD, renal Dz, and seizures per physician notes SARS-CoV-2 Ag (Rapid) Positive 02/23 & 03/14; COVID-19 (JOSE) Positive 03/06 & 03/10 Subjective Information: Patient seen today during ICU rounds, pt is not awake nor alert. S/p g-tube placement 03/18. Per RT notes: pt has been on ventilator since 03/19. Per primary RN, the patient was scheduled to have tracheostomy at 9am but canceled surgery d/t an emergency elsewhere. Per chart review/RN notes 03/29: patient was found with maggots in her mouth, MDs and family aware, oral care being administered q 6h. Family wound like trach placed d/t improved safety/ protection for the patient. Visited ICU later in the day and TF was seen off, per RN and notes: patient is scheduled to have tracheostomy between 5-6pm today so is currently NPO. Per EMR, TF was running @ 10mL since 03/25 with residuals between 70-160. LBM 03/30 x 1. Patient is not meeting optimal nutritional needs. Patient/Significant Other Unable To Verbalize Education Provided Not Indicated Pertinent Medications: lovenox, levophed, insulin, glucophage, lopressor, SSI, colace, sinemet, VIT D3, VIT C, zinc Pertinent Labs: RBC 2.4 L, Na 148 H, K 1.8 L, H/H 7.1/21.4 L, Cl 117 H, BUN 31 H, glu/POC 170/141 H Height (Feet) 5 feet Height (Inches) 2.00 inches Weight (Pounds) 140 pounds -- bedscale wt 03/23 Patient Weight 64 kg Body Mass Index 25.6 kg/m2 %IBW 127 [place]/Adjusted Body Weight 110#/50 kg Recent Weight Change Unable to verify Weight Status Overweight (slightly) Food Allergies Unable to verify Usual Diet at Home Unable to verify Skin Integrity Comment: Michele scale 10 on 03/30: Kiln Firer Helper note 03/15 revealed -- 1. Anterior Forehead: Black scab from wound of unknown origin, present on admission. 2. Lower Lip: Black scabs from biting. 3. Anterior chin: Dark discolored area of skin. 4. Left Heel: Blanchable redness, present on admission. 5. Right Heel: Blanchable redness, present on admission. 6. Sacral area: Two brown skin areas with dry flaky skin, present on admission. 7. Left Upper Extremity: Pitting edema with copious serous drainage with yellow tint. 8. Right Upper Extremity: Pitting edema with copious serous drainage with yellow tint. --Per EMR review 03/30: Ruptured blister L-knee Estimated Energy Expenditure (kcals/day) 5518-3137 (25-30 kcal/kg d/t vent, overweight BMI) Estimated Protein Required (g/day) 64-96 (1-1.5 gm/kg d/t renal Dz, acute illness, vent) Estimated Fluid Required (l/day) Per physician d/t renal Dz Problem/Etiology/Signs/Symptoms * Inadequate oral intake r/t scheduled tracheostomy a/e/b TF not running (New) * Increased energy expenditure R/T vent-dependent AEB 25-30 kcal/kg nutrient recommendations. (Ongoing) Expected Outcomes/Goals * Monitor TF formula w/ goal of pt meeting >80% of estimated nutritional needs, monitor TF tolerance/ GRV, labs trending WNL, normal GI function, and skin integrity Dietitian Recommendations * When medically appropriate, Vital AF 1.2 at 50 ml/hr (goal rate), Edgardo BID, Banatrol BID, - Free Water Flush: pit and auxiliaries supervisor d/t renal Dz via GT - Provides: 1600 kcal/day, 95 gm protein/day, and 973 ml free water/day - Meets: 100% of lower end of estimated caloric needs and 94% of upper end of estimated protein needs * Monitor electrolytes, thiamine d/t risk of refeeding and/or malnutrition *Consider monitoring copper labs d/t extended zinc supplementation Follow Up High Risk: F/U in 2-3 days 04/01-04/03
--- NOTE | 2022-03-30 15:30 | NUR ---
Dietitian Recommendations * When medically appropriate, Vital AF 1.2 at 50 ml/hr (goal rate), Edgardo BID, Banatrol BID, - Free Water Flush: exhibit preparator d/t renal Dz via GT - Provides: 1600 kcal/day, 95 gm protein/day, and 973 ml free water/day - Meets: 100% of lower end of estimated caloric needs and 94% of upper end of estimated protein needs * Monitor electrolytes, thiamine d/t risk of refeeding and/or malnutrition *Consider monitoring copper labs d/t extended zinc supplementation Please see Nutrition F/U assessment for details, thanks! CC, MPH, RDN
--- NOTE | 2022-03-30 17:25 | NUR ---
RT NOTES Transported pt to O.R with charge nurse Ignacio and Surgery Charge nurse Kel Tello. Pt was bagged with 100% O2 via BMV to ETT. A/w remains secure, Once in the unit Dr Boland took over ventilation.
[2022-03-30] MEDS ORDERED: SEVOFLURANE 15 MIN GAS INH ONE (17:36)
[2022-03-30] MEDS ORDERED: 0.45% NACL 1,000 ML BAG IV ONE (17:36)
[2022-03-30] MEDS ORDERED: NS IRRIG SOLN 1000 ML IR ONE (17:36)
[2022-03-30] MEDS ORDERED: CEFAZOLIN 2 GM IVPB PREMIX 50 ML IV ONE (17:36)
[2022-03-30] MEDS ORDERED: LIDOCAINE 1% 10 MG/ML, 20 ML MDV ONE (17:36)
[2022-03-30] MEDS ORDERED: 0.45% NACL 1,000 ML IV SCH (18:30)
--- NOTE | 2022-03-30 18:30 | NUR ---
TRACHEOSTOMY: PORTEX 7.
--- NOTE | 2022-03-30 19:05 | NUR ---
Received report from HARISH Orozco and assumed patient care, will reinforce if needed throughout the shift. Family at bedside, explained to family member and provided nursing updates no additional questions noted at the moment will reinforce if needed throughout the shift.
--- NOTE | 2022-03-30 19:27 | NUR ---
PT S/P TRACHEOSTOMY BY DR DELGADILLO. PT ON STABLE CONDITION, FAMILY AT BEDSIDE. ENDORSED TO NIGHT RN.
--- NOTE | 2022-03-30 20:00 | NUR ---
Performed thoroughly oral cleansing with oral hydrogen peroxide, no complications note at the moment. Will reinforce if needed throughout the shift.
[2022-03-30] MEDS: ENOXAPARIN SODIUM 30 MG/0.3 ML SYRINGE SUBCUT SCH (20:55)
--- NOTE | 2022-03-30 23:15 | NUR ---
Dr. Trejo at bedside, MD is aware of patient's success on the placement of tracheostomy and no further complications noted during the surgery. MD is aware of no more Maggots found in the mouth area, MD is aware of family wanting medical updates and per MD will call family in the morning when he's able to call family. No additional orders noted and will reinforce if needed throughout the shift.
[2022-03-31] VITALS (22 sets, daily range): BP systolic 113–152
--- NOTE | 2022-03-31 | NUR ---
Performed thoroughly oral cleansing with oral hydrogen peroxide, no complications note at the moment. Will reinforce if needed throughout the shift.
--- NOTE | 2022-03-31 00:25 | NUR ---
Dr. Zuniga at bedside, MD is aware of the maggots found in patient's mouth (unknown amount of days ago), informed MD there was no more maggots found from the mouth as of right now. No additional orders noted at the moment, will reinforce if needed throughout the shift.
[2022-03-31] MEDS: IPRATROPIUM/ALBUTEROL SULFATE 3 ML AMPUL.NEB (DUONEB) INH SCH ×4 (01:27→19:39)
--- NOTE | 2022-03-31 02:12 | NUR ---
CHG bath performed, patient tolerated the big turns and had no complications noted during the turns. Will reinforce if needed throughout the shift.
--- NOTE | 2022-03-31 04:00 | NUR ---
Performed thoroughly oral cleansing with oral hydrogen peroxide, no complications note at the moment. Will reinforce if needed throughout the shift.
[2022-03-31] MEDS: METHYLPREDNISOLONE SOD SUCC 40 MG/ML VIAL IVP SCH ×2 (05:17→14:16)
[2022-03-31 06:53] LABS: ALANINE AMINOTRANSFERASE 5 U/L (12-78); ANION GAP 10 (5-15); ASPARTATE AMINOTRANSFERASE 10 U/L (10-37); CALCIUM 8.8 mg/dL (8.4-11.0); CHLORIDE 115 mmol/L (98-107); CREATININE 0.87 mg/dL (0.55-1.30); GLUCOSE 188 mg/dL (70-99); PHOSPHORUS 2.5 mg/dL (2.7-4.5); SODIUM SERUM 144 mmol/L (136-145); TOTAL BILIRUBIN 0.2 mg/dL (0.0-1.0); UREA NITROGEN, BLOOD 26 mg/dL (8-21)
[2022-03-31 07:19] LABS: BASOPHILS % (AUTO) 0.4 % (0.0-2.0); EOSINOPHILS % (AUTO) 0.1 % (0.0-4.0); HEMATOCRIT 29.1 % (36-48); LYMPHOCYTES # (AUTO) 0.6 K/uL (1.0-5.5); LYMPHOCYTES % (AUTO) 5.2 % (20.5-51.5); MEAN CORPUSCULAR HEMOGLOBIN 30 pg (27-31); MEAN CORPUSCULAR HGB CONC 34 % (32-36); MEAN CORPUSCULAR VOLUME 88 fL (79.0-98.0); MONOCYTES # (AUTO) 0.3 K/uL (0.0-1.0); MONOCYTES % (AUTO) 2.6 % (1.7-9.3); NEUTROPHILS # (AUTO) 9.7 K/uL (1.8-7.7); NEUTROPHILS % (AUTO) 91.7 % (40.0-70.0); PLATELET COUNT (AUTO) 354 K/uL (130-430); RED BLOOD CELL COUNT(AUTO) 3.32 MIL/uL (4.2-6.2); RED CELL DISTRIBUTION WIDTH 16.1 % (9.0-15.0); WHITE BLOOD COUNT (AUTO) 10.6 K/uL (4.8-10.8)
[2022-03-31] MEDS: metFORMIN HCL 500 MG TABLET PO SCH (08:37)
[2022-03-31] MEDS: LANSOPRAZOLE 30 MG CAPSULE.DR GT SCH (08:45)
[2022-03-31] MEDS: ASCORBIC ACID 500 MG TABLET PO SCH (08:48)
[2022-03-31] MEDS: CHOLECALCIFEROL (VITAMIN D3) 2,000 UNIT TABLET PO SCH (08:49)
[2022-03-31] MEDS: CARBIDOPA/LEVODOPA 25/100 MG TABLET PO SCH ×2 (08:49→14:32)
[2022-03-31] MEDS: DOCUSATE SODIUM 100 MG/10 ML UDC PO SCH ×2 (08:49→21:00)
[2022-03-31] MEDS: hydrALAZINE HCL 25 MG TABLET PO SCH (08:50)
[2022-03-31] MEDS: METOPROLOL TARTRATE 25 MG TABLET GT SCH (08:52)
[2022-03-31] MEDS: levETIRAcetam 500 MG in NS 100 ML IV SCH (08:54)
--- NOTE | 2022-03-31 12:03 | NUR ---
0730 RECEIVED PATIENT REPORT AND SEEN PATIENT OBTUNDED ON BED NO DISTRESS NO FOLLOWING COMMANDS. FAMILY T BEDSIDE UPDATED. 1200 REPORT GIVEN TO NEXT ONCOMING RN FOR CONTINUE CARE.
[2022-03-31] MEDS: INSULIN REGULAR, HUMAN 100 UNITS/ML, 10 ML VIAL (humuLIN R) SUBCUT PRN ×2 (12:55→17:47)
--- NOTE | 2022-03-31 13:09 | NUR ---
LORI ANGEL REG NURSE IS NOW IN CHARGE OF THIS PATIENT/PT TOLERATING CPAP GREAT, VS STABLE RESP RATE GOOD/MW
--- NOTE | 2022-03-31 16:18 | NUR ---
CLEANED PT WELL, FOUND ZERO BREAKDOWN AND ZERO FLEXISEAL LEAK/PT TOLERATED WELL/ORAL CARE GIVEN//NO ISSUES//MW
--- NOTE | 2022-03-31 18:00 | NUR ---
Admission Note Received patient from ICU with diagnosis of SOB, END STAGE DEMENTIA. Initial Plan of Care discussed-patient's family and they verbalized understanding. Family at bedside. Oriented to room, call light, pain management and safety.
--- NOTE | 2022-03-31 18:22 | NUR ---
TRANSFERRED PT TO TELEMETRY IN ZERO DISTRESS//MW
[2022-03-31] MEDS ORDERED: K PHOS 30 MM in NS 250 ML IV ONE (20:00)
[2022-04-01] MEDS: CARBIDOPA/LEVODOPA 25/100 MG TABLET PO SCH ×3 (00:13→15:04)
[2022-04-01] MEDS: ASCORBIC ACID 500 MG TABLET PO SCH ×3 (00:13→23:55)
[2022-04-01] MEDS: METOPROLOL TARTRATE 25 MG TABLET GT SCH ×3 (00:15→23:56)
[2022-04-01] MEDS: hydrALAZINE HCL 25 MG TABLET PO SCH ×3 (00:16→23:55)
[2022-04-01] MEDS: ENOXAPARIN SODIUM 30 MG/0.3 ML SYRINGE SUBCUT SCH ×2 (00:17→23:52)
[2022-04-01] MEDS: METHYLPREDNISOLONE SOD SUCC 40 MG/ML VIAL IVP SCH ×4 (00:19→23:58)
[2022-04-01 00:55] VITALS: BP_SYST 124
[2022-04-01] MEDS: IPRATROPIUM/ALBUTEROL SULFATE 3 ML AMPUL.NEB (DUONEB) INH SCH ×4 (01:20→20:16)
[2022-04-01] MEDS: INSULIN REGULAR, HUMAN 100 UNITS/ML, 10 ML VIAL (humuLIN R) SUBCUT PRN ×4 (02:16→18:27)
[2022-04-01] MEDS: levETIRAcetam 500 MG in NS 100 ML IV SCH ×2 (02:30→08:48)
--- NOTE | 2022-04-01 07:30 | NUR ---
RN OPENING NOTE REPORT WAS ENDORSED BY NIGHT NURSE. PATIENT IS AWAKE WITH EYES OPEN ALL SAFETY PRECAUTIONS IN PLACE. PATIENT SHOWS NO SIGNS OF ANY DISTRESS. UNABLE TO EDUCATED PATIENT MAINTENANCE MECHANIC MILLWRIGHT LIGHT. PATIENT HAS NO OTHER NEEDS AT THIS TIME.
[2022-04-01 07:40] LABS: BASOPHILS # (AUTO) 0.2 K/uL (0.0-0.2); BASOPHILS % (AUTO) 1.1 % (0.0-2.0); HEMATOCRIT 28.2 % (36-48); HEMOGLOBIN 9.6 g/dL (12.0-16.0); LYMPHOCYTES # (AUTO) 0.7 K/uL (1.0-5.5); LYMPHOCYTES % (AUTO) 4.9 % (20.5-51.5); MEAN CORPUSCULAR HEMOGLOBIN 30 pg (27-31); MEAN CORPUSCULAR HGB CONC 34 % (32-36); MEAN CORPUSCULAR VOLUME 87 fL (79.0-98.0); MONOCYTES # (AUTO) 0.3 K/uL (0.0-1.0); MONOCYTES % (AUTO) 2.4 % (1.7-9.3); NEUTROPHILS % (AUTO) 91.6 % (40.0-70.0); PLATELET COUNT (AUTO) 301 K/uL (130-430); RED BLOOD CELL COUNT(AUTO) 3.24 MIL/uL (4.2-6.2); RED CELL DISTRIBUTION WIDTH 16.3 % (9.0-15.0); WHITE BLOOD COUNT (AUTO) 14.2 K/uL (4.8-10.8)
[2022-04-01] MEDS: LANSOPRAZOLE 30 MG CAPSULE.DR GT SCH (08:45)
[2022-04-01] MEDS: metFORMIN HCL 500 MG TABLET PO SCH ×2 (08:45→18:24)
[2022-04-01] MEDS: CHOLECALCIFEROL (VITAMIN D3) 2,000 UNIT TABLET PO SCH (08:46)
[2022-04-01] MEDS: DOCUSATE SODIUM 100 MG/10 ML UDC PO SCH ×2 (08:47→21:00)
[2022-04-01] MEDS: D5/0.45 NS 1,000 ML IV SCH (08:49)
--- NOTE | 2022-04-01 09:26 | NUR ---
medication Addendum: 04/01/22 at 1051 by Guerda Townsend RN TUBE FEEDING STOP DUE TO ELEVATED RESIDUAL OF 205ML. MEDICATION GIVEN ORDERED. PATIENT SHOWS NO SIGNS OF ANY DISTRESS, ON VENT. MONSIVAIS CATHETER DRAINING TO GRAVITY. PATIENT HAS FAMILY AT BED SIDE. DR. GARCIA AT BEDSIDE. PATIENT PROVIDED WITH ORAL CARE. EDUCATED FAMILY FOREIGN SERVICE TEACHER LIGHT FOR ASSISTANCE. CALL LIGHT IS WITH PATIENT. RT CALLED FOR CPAP MODE WILL CHANGE AT 1100 PER RT. PATIENT HAS NO OTHER NEEDS AT THIS TIME.
[2022-04-01 09:39] LABS: ANION GAP 12 (5-15); CALCIUM 9.2 mg/dL (8.4-11.0); CHLORIDE 113 mmol/L (98-107); CREATININE 0.93 mg/dL (0.55-1.30); GLUCOSE 302 mg/dL (70-99); PHOSPHORUS 3.9 mg/dL (2.7-4.5); POTASSIUM 3.5 mmol/L (3.5-5.1); SODIUM SERUM 142 mmol/L (136-145); UREA NITROGEN, BLOOD 27 mg/dL (8-21)
--- NOTE | 2022-04-01 10:30 | NUR ---
RESIDUAL REASSESSED PATIENT'S RESIDUAL IS 220ML WILL CONTINUE TO HAVE TUBE FEEDING OFF.
--- NOTE | 2022-04-01 10:46 | NUR ---
per [facility] liason officer, Ms Tram Marr's request, , faxed the covid result on admission (02/23/22).
[2022-04-01 12:00] VITALS: BP_SYST 135
--- NOTE | 2022-04-01 12:50 | NUR ---
reassess residual 180ml residual in g tube. tube feeding is still off. Accu check done coverage getting per order. patient shows no signs of any distress family at bedside. incontinences care provided. no other needs at this time.
--- NOTE | 2022-04-01 15:00 | NUR ---
CM: per [facility]: the pt is accepted and is pending bed at [facility] location. She will be calling back to CN once there is bed assigned. DC package place in nursing station. In case that there is bed tonight, nursing is to arrange the CCT transportation.
--- NOTE | 2022-04-01 15:05 | NUR ---
medication patients residual is 170ml.tube feeding is still off. patients scheduled medication given per order. patient shows no signs of any distress, breathing is equal and non labored. all safety precautions in place. will continue to monitor.
--- NOTE | 2022-04-01 16:30 | NUR ---
INCONTINENCE CARE/ TUBE FEEDING PATIENTS INCONTINENCE CARE PROVIDED NEEDED. PATIENTS RESIDUAL IS 70ML TUBE FEEDING STARTED AT A RATE OF 20ML/HR WITH A GOAL OF 50ML /HR. PATIENT SHOWS NO SIGNS OF ANY DISTRESS, BREATHING IS EQUAL AND NON LABORED. ALL SAFETY PRECAUTIONS IN PLACE.
[2022-04-01 16:42] VITALS: BP_SYST 146
--- NOTE | 2022-04-01 18:33 | NUR ---
rn closing note patient is tolerating her tube feeding well, with only 50 ml residual. patient's tube feeding increased to 30ml to get to goal of 50. patient has family at bedside. patient's accu check done, coverage given as needed. all safety precautions in place. no other needs at this time. educated family to use call light for assistance.
[2022-04-02 00:11] VITALS: BP_SYST 128
[2022-04-02] MEDS: IPRATROPIUM/ALBUTEROL SULFATE 3 ML AMPUL.NEB (DUONEB) INH SCH ×4 (01:25→19:25)
[2022-04-02] MEDS: CARBIDOPA/LEVODOPA 25/100 MG TABLET PO SCH ×4 (02:48→20:57)
[2022-04-02] MEDS: D5/0.45 NS 1,000 ML IV SCH ×2 (04:30→23:45)
[2022-04-02] MEDS: METHYLPREDNISOLONE SOD SUCC 40 MG/ML VIAL IVP SCH ×3 (06:52→22:27)
[2022-04-02 08:33] LABS: ALBUMIN 0.7 g/dL (3.4-4.8); ANION GAP 12 (5-15); ASPARTATE AMINOTRANSFERASE 13 U/L (10-37); CHLORIDE 108 mmol/L (98-107); CREATININE 0.75 mg/dL (0.55-1.30); GLUCOSE 230 mg/dL (70-99); POTASSIUM 3.9 mmol/L (3.5-5.1); SODIUM SERUM 136 mmol/L (136-145); TOTAL BILIRUBIN 0.3 mg/dL (0.0-1.0); UREA NITROGEN, BLOOD 24 mg/dL (8-21)
[2022-04-02] MEDS: levETIRAcetam 500 MG in NS 100 ML IV SCH ×4 (09:00→20:57)
[2022-04-02 09:30] VITALS: BP_SYST 138
[2022-04-02] MEDS: DOCUSATE SODIUM 100 MG/10 ML UDC PO SCH ×2 (09:30→20:56)
[2022-04-02] MEDS: CHOLECALCIFEROL (VITAMIN D3) 2,000 UNIT TABLET PO SCH (09:31)
[2022-04-02] MEDS: ASCORBIC ACID 500 MG TABLET PO SCH ×2 (09:31→20:57)
[2022-04-02] MEDS: hydrALAZINE HCL 25 MG TABLET PO SCH ×2 (09:31→20:59)
[2022-04-02] MEDS: LANSOPRAZOLE 30 MG CAPSULE.DR GT SCH (09:32)
[2022-04-02] MEDS: METOPROLOL TARTRATE 25 MG TABLET GT SCH ×2 (09:32→20:59)
[2022-04-02] MEDS: metFORMIN HCL 500 MG TABLET PO SCH ×2 (09:34→17:38)
--- NOTE | 2022-04-02 10:00 | NUR ---
turn q 2h, frequent oral care provided, tolerated well
--- NOTE | 2022-04-02 11:00 | NUR ---
CM: Per Tram:unable to take the transfer today due to no bed available and other staffing issue.
--- NOTE | 2022-04-02 11:31 | NUR ---
ORAL CARE MOUTH CARE RENDERED WITH CHLORHEXIDINE. SUCTIONED SECRETIONS
[2022-04-02 12:44] VITALS: BP_SYST 118
[2022-04-02 13:23] LABS: ALANINE AMINOTRANSFERASE 7 U/L (12-78)
--- NOTE | 2022-04-02 13:35 | NUR ---
Nutrition F/U Admitting Diagnosis COVID pneumonia Reviewed Pertinent Medical/Surgical Hx Medical Record Patient Son Medical History Comment: PMH: dementia, DM2, HTN, CVA, COPD, renal Dz, and seizures per physician notes Per EMR review, pt is s/p GT placement 03/18; s/p trach placement 03/30 SARS-CoV-2 Ag (Rapid) Positive 02/23 & 03/14, Negative 03/29; COVID-19 (JOSE) Positive 03/06 & 03/10 Subjective Information: RD rounded to pt's bedside, son present. Witnessed TF infusing as per physician order. Flexiseal w/ moderate amount of stool output noted. Primary RN was busy during RD rounds to unit. Per EMR review, pt has been tolerating TF. Pt may benefit from re-implementation of Edgardo BID and Banatrol BID modulars to help w/ wound healing and loose stools, respectively. Current Diet Order/Nutrition Support: Vital AF 1.2 at 50 ml/hr (goal), Free Water Flush: 0 via NGT x3 days Patient/Significant Other Unable To Verbalize Education Provided Not Indicated Pertinent Medications: Reviewed Pertinent Labs: Reviewed Height (Feet) 5 feet Height (Inches) 2.00 inches Weight (Pounds) 105 pounds -- per EMR 03/31 Patient Weight 47.5 kg (03/31) NEW Body Mass Index 18 kg/m2 (03/31) NEW %IBW 88 (03/31) NEW [place]/Adjusted Body Weight 120#/54.5 kg (03/31) Recent Weight Change Unable to verify NEW Weight Status Underweight UBW 105-110# per son report 04/02 Food Allergies Unable to verify Usual Diet at Home Unable to verify Skin Integrity Comment: Michele scale 11 on 03/30: Deputy Clerk Of Superior Court note 03/15 revealed -- 1. Anterior Forehead: Black scab from wound of unknown origin, present on admission. 2. Lower Lip: Black scabs from biting. 3. Anterior chin: Dark discolored area of skin. 4. Left Heel: Blanchable redness, present on admission. 5. Right Heel: Blanchable redness, present on admission. 6. Sacral area: Two brown skin areas with dry flaky skin, present on admission. 7. Left Upper Extremity: Pitting edema with copious serous drainage with yellow tint. 8. Right Upper Extremity: Pitting edema with copious serous drainage with yellow tint. --Per EMR review 03/30: Ruptured blister L-knee NEW Estimated Energy Expenditure (kcals/day) 6597-0159 (30-35 kcal/kg IBW d/t vent, underwt status, wt gain) NEW Estimated Protein Required (g/day) 55-82 (1-1.5 gm/kg IBW d/t renal Dz, vent, underwt status, wt gain) Estimated Fluid Required (l/day) Per physician d/t renal Dz Problem/Etiology/Signs/Symptoms *MODIFIED* * Inadequate oral intake r/t scheduled tracheostomy a/e/b TF not running (*No longer applicable) * Increased energy expenditure R/T vent-dependent AEB 30-35 kcal/kg nutrient recommendations. (Ongoing) Expected Outcomes/Goals * Monitor TF formula w/ goal of pt meeting >80% of estimated nutritional needs, monitor TF tolerance/ GRV, labs trending WNL, normal GI function, and skin integrity Dietitian Recommendations * Vital AF 1.2 at 50 ml/hr (goal rate), Edgardo BID, Banatrol BID, Free Water Flush: occupational medicine physician d/t renal Dz via GT Provides: 1600 kcal/day, 95 gm protein/day, and 973 ml free water/day Meets: 98% of lower end of estimated caloric needs and 116% of upper end of estimated protein needs * Monitor electrolytes, thiamine d/t risk of refeeding and/or malnutrition * Consider monitoring copper labs d/t extended zinc supplementation Follow Up High Risk: F/U in 2-3 days
--- NOTE | 2022-04-02 13:44 | NUR ---
Dietitian Recommendations * Vital AF 1.2 at 50 ml/hr (goal rate), Edgardo BID, Banatrol BID, Free Water Flush: conduit installer d/t renal Dz via GT Provides: 1600 kcal/day, 95 gm protein/day, and 973 ml free water/day Meets: 98% of lower end of estimated caloric needs and 116% of upper end of estimated protein needs * Monitor electrolytes, thiamine d/t risk of refeeding and/or malnutrition * Consider monitoring copper labs d/t extended zinc supplementation LP, MS, RD Please refer to Nutrition F/U for details.
[2022-04-02 15:20] LABS: BASOPHILS # (AUTO) 0.1 K/uL (0.0-0.2); BASOPHILS % (AUTO) 0.8 % (0.0-2.0); EOSINOPHILS % (AUTO) 0.1 % (0.0-4.0); HEMATOCRIT 26.3 % (36-48); HEMOGLOBIN 8.7 g/dL (12.0-16.0); LYMPHOCYTES # (AUTO) 0.8 K/uL (1.0-5.5); LYMPHOCYTES % (AUTO) 6.7 % (20.5-51.5); MEAN CORPUSCULAR HEMOGLOBIN 30 pg (27-31); MEAN CORPUSCULAR HGB CONC 33 % (32-36); MEAN CORPUSCULAR VOLUME 90 fL (79.0-98.0); MONOCYTES # (AUTO) 0.4 K/uL (0.0-1.0); MONOCYTES % (AUTO) 3.1 % (1.7-9.3); NEUTROPHILS # (AUTO) 10.5 K/uL (1.8-7.7); NEUTROPHILS % (AUTO) 89.3 % (40.0-70.0); PLATELET COUNT (AUTO) 269 K/uL (130-430); RED BLOOD CELL COUNT(AUTO) 2.94 MIL/uL (4.2-6.2); RED CELL DISTRIBUTION WIDTH 17.3 % (9.0-15.0); WHITE BLOOD COUNT (AUTO) 11.7 K/uL (4.8-10.8)
[2022-04-02 16:31] VITALS: BP_SYST 118
[2022-04-02 16:50] VITALS: BP_SYST 114
[2022-04-02] MEDS ORDERED: ALBUMIN HUMAN 25% 100 ML IV ONE (18:30)
--- NOTE | 2022-04-02 19:25 | NUR ---
Opening note Received patient resting on [place] mattress. Daughter is visiting at bedside. Patient is on ventilator with settings as ordered. Non labored breathing, no distress. IVF infusing via PICC to ERIKA. Alexandra catheter drainage bag to gravity. She has flexiseal, presently patent, not leaking. Skin is warm, thin and weeping, generalized pitting edema noted. Bed is locked in lowest position, side rails up and bed alarm on.
[2022-04-02 20:00] VITALS: BP_SYST 103
[2022-04-02] MEDS: ENOXAPARIN SODIUM 30 MG/0.3 ML SYRINGE SUBCUT SCH (20:58)
[2022-04-03] MEDS: INSULIN REGULAR, HUMAN 100 UNITS/ML, 10 ML VIAL (humuLIN R) SUBCUT PRN ×3 (00:01→13:42)
[2022-04-03 00:19] VITALS: BP_SYST 125
[2022-04-03] MEDS: IPRATROPIUM/ALBUTEROL SULFATE 3 ML AMPUL.NEB (DUONEB) INH SCH ×4 (03:34→19:16)
[2022-04-03] MEDS: METHYLPREDNISOLONE SOD SUCC 40 MG/ML VIAL IVP SCH ×3 (05:50→21:41)
--- NOTE | 2022-04-03 07:35 | NUR ---
RT NOTE: 0735 Pt placed on CPAP at this time. Tx given inline, oral care done, and suctioned via trach. Tolerating mode well. Addendum: 04/03/22 at 1017 by Isamar Wing RT Amended: Links added.
--- NOTE | 2022-04-03 07:40 | NUR ---
CLOSING NOTE Endorsed care, patient stable. Needs met throughout shift. Safety, aspiration precautions maintained.
[2022-04-03 08:20] VITALS: BP_SYST 141
--- NOTE | 2022-04-03 08:20 | NUR ---
INITIAL ROUNDS Received pt awake, eyes open, not tracking, on vent via trach, vent settings verified. IVF infusing well at ordered rate to ERIKA PICC line with no s/s infiltration to site. Vital AF infusing well via g-tube with 10 ml residual noted. Alexandra draining to gravity with yellow urine with sediments noted. HOB elevated for aspiration precautions. Noted BUE edema, each arm elevated on pillow. Noted edema to BLE, each leg elevated on pillow with heels off-loaded for skin care. Pt repositioned with pillow support and on an air mattress for skin care. Noted multiple clean, dry and intact dressings on BLE. Side rails up x3, bed alarm on for safety.
[2022-04-03 08:56] LABS: ALBUMIN 1.6 g/dL (3.4-4.8); ANION GAP 9 (5-15); ASPARTATE AMINOTRANSFERASE 7 U/L (10-37); CALCIUM 9.4 mg/dL (8.4-11.0); CHLORIDE 112 mmol/L (98-107); CREATININE 0.71 mg/dL (0.55-1.30); GLUCOSE 314 mg/dL (70-99); PHOSPHORUS 2.2 mg/dL (2.7-4.5); POTASSIUM 3.6 mmol/L (3.5-5.1); SODIUM SERUM 140 mmol/L (136-145); TOTAL BILIRUBIN 0.3 mg/dL (0.0-1.0); UREA NITROGEN, BLOOD 25 mg/dL (8-21)
[2022-04-03] MEDS: CARBIDOPA/LEVODOPA 25/100 MG TABLET PO SCH ×3 (09:44→21:41)
[2022-04-03 09:45] LABS: ALANINE AMINOTRANSFERASE 2 U/L (12-78)
[2022-04-03] MEDS: LANSOPRAZOLE 30 MG CAPSULE.DR GT SCH (09:45)
[2022-04-03] MEDS: metFORMIN HCL 500 MG TABLET PO SCH ×2 (09:45→17:47)
[2022-04-03] MEDS: METOPROLOL TARTRATE 25 MG TABLET GT SCH ×2 (09:47→21:41)
[2022-04-03] MEDS: ASCORBIC ACID 500 MG TABLET PO SCH ×2 (09:48→21:41)
[2022-04-03] MEDS: CHOLECALCIFEROL (VITAMIN D3) 2,000 UNIT TABLET PO SCH (09:48)
[2022-04-03] MEDS: hydrALAZINE HCL 25 MG TABLET PO SCH ×2 (09:48→21:42)
[2022-04-03] MEDS: DOCUSATE SODIUM 100 MG/10 ML UDC PO SCH ×2 (09:48→23:16)
[2022-04-03] MEDS: levETIRAcetam 500 MG in NS 100 ML IV SCH ×2 (09:49→21:40)
--- NOTE | 2022-04-03 11:21 | NUR ---
CM: [facility]:unable to take the transfer again today due to staffing issues.
[2022-04-03 12:37] VITALS: BP_SYST 134
--- NOTE | 2022-04-03 13:35 | NUR ---
HIGH ALERT NOTE: Called Dr. Lopez back at [phone] identified within the medical roster to verify physician authenticity. For high alert medication Sodium Phosphate 15 mm IVPB.
[2022-04-03] MEDS ORDERED: NA PHOS 15 MM in NS 250 ML IV ONE (14:00)
[2022-04-03 16:55] VITALS: BP_SYST 130
--- NOTE | 2022-04-03 19:10 | NUR ---
CLOSING NOTE Pt resting quietly in bed with no s/s resp distress, no s/s pain or discomfort. Oral care provided throughout shift per protocol. IVF infusing well at ordered rate with no s/s infiltration to site. Vital AF infusing well at 40 ml/hr with 15 ml residual noted. Alexandra draining to gravity. Aspiration, skin and safety precautions remain in place. Family at bedside.
--- NOTE | 2022-04-03 19:40 | NUR ---
Opening note Received patient awake, no distress. Resting on [place] mattress. Patient is on ventilator with settings as ordered. Non labored breathing. IVF infusing via PICC to ERIKA. Alexandra catheter drainage bag to gravity. She has flexiseal, presently patent, not leaking. Skin is warm, thin and dry. Daughter is visiting with patient. Bed is locked in lowest position, side rails up and bed alarm on.
[2022-04-03] MEDS: ENOXAPARIN SODIUM 30 MG/0.3 ML SYRINGE SUBCUT SCH (21:42)
--- NOTE | 2022-04-03 21:50 | NUR ---
Meds GT was assessed for residual; 260 ml was noted and returned. GT meds given as ordered. Supplements, Prosource and Edgardo also given with FWF., WCTM
[2022-04-03] MEDS: D5/0.45 NS 1,000 ML IV SCH (23:15)
[2022-04-04 00:14] VITALS: BP_SYST 132
--- NOTE | 2022-04-04 00:45 | NUR ---
Residual Residual assessed and noted 500ml. Feeding has been stopped, wctm
[2022-04-04] MEDS: IPRATROPIUM/ALBUTEROL SULFATE 3 ML AMPUL.NEB (DUONEB) INH SCH ×4 (05:09→19:34)
--- NOTE | 2022-04-04 05:30 | NUR ---
Residual late entry Patient's residual assessed and at 300ml. Feeding remains off.
[2022-04-04] MEDS: METHYLPREDNISOLONE SOD SUCC 40 MG/ML VIAL IVP SCH ×2 (06:00→13:48)
--- NOTE | 2022-04-04 07:20 | NUR ---
closing note late entry endorsed care; patient stable
--- NOTE | 2022-04-04 07:31 | NUR ---
OPENING NOTE: REPORT RC'VD FROM OUTGOING NOC RN, ALL CARES ASSUMED.
--- NOTE | 2022-04-04 08:00 | NUR ---
RN ROUNDS: PATIENT REPOSITIONED WITH PILLOW SUPPORT, HEELS FLOATING, PATIENT REMAINS STABLE IN NO ACUTE DISTRESS AND OR DISCOMFORT. ORAL CARE PROVIDED WITH SUCTION, PATIENT TOLERATED WELL. HOB ELEVATED FOR ASPIRATION PRECAUTIONS. BED LOW AND LOCKED FOR SAFETY, ALL SAFETY PRECAUTIONS AND NEEDS MET AT THIS TIME.
[2022-04-04] MEDS: LANSOPRAZOLE 30 MG CAPSULE.DR GT SCH (08:24)
[2022-04-04] MEDS: metFORMIN HCL 500 MG TABLET PO SCH ×2 (08:24→18:34)
[2022-04-04] MEDS: CARBIDOPA/LEVODOPA 25/100 MG TABLET PO SCH ×2 (08:24→15:00)
[2022-04-04] MEDS: ASCORBIC ACID 500 MG TABLET PO SCH (08:24)
[2022-04-04] MEDS: DOCUSATE SODIUM 100 MG/10 ML UDC PO SCH (08:24)
[2022-04-04] MEDS: CHOLECALCIFEROL (VITAMIN D3) 2,000 UNIT TABLET PO SCH (08:24)
[2022-04-04] MEDS: levETIRAcetam 500 MG in NS 100 ML IV SCH (08:25)
[2022-04-04] MEDS: METOPROLOL TARTRATE 25 MG TABLET GT SCH (08:25)
[2022-04-04] MEDS: hydrALAZINE HCL 25 MG TABLET PO SCH (08:25)
--- NOTE | 2022-04-04 08:30 | NUR ---
RESIDUALS: <50, FEEDING RESTARTED
--- NOTE | 2022-04-04 09:30 | NUR ---
FAMILY AT BEDSIDE, UPDATES GIVEN AND ALL QUESTIONS ANSWERED.
--- NOTE | 2022-04-04 10:50 | NUR ---
PENDING BED PLACEMENT AT [facility], NO NEW UPDATES AT THIS TIME FROM CM.
--- NOTE | 2022-04-04 11:22 | NUR ---
CM: Per Tram, Pt is going to [facility] , bed # 303-C after 7 pm report to .
--- NOTE | 2022-04-04 11:25 | NUR ---
7PM DISTRICT ADMINISTRATOR TIME, PATIENT WILL BE TAKEN TO [facility] , SON HAS AGREED TO TRANSFER.
[2022-04-04 11:27] VITALS: BP_SYST 152
--- NOTE | 2022-04-04 11:38 | NUR ---
[facility] # [phone] to [facility] cloth at 7pm. I notified son/Sidney, agreed with the transfer today. HARISH anthony.
[2022-04-04 12:00] VITALS: BP_SYST 128
--- NOTE | 2022-04-04 13:00 | NUR ---
PATIENT REPOSITIONED WITH PILLOW SUPPORT, BED LOW AND LOCKED FOR SAFETY, FAMILY AT BEDSIDE.
--- NOTE | 2022-04-04 14:25 | NUR ---
SPOKE WITH DR. ZAMUDIO, PER MD PLACE ORDER FOR T-BAR TOLERATED.
--- NOTE | 2022-04-04 14:25 | NUR ---
RT MADE AWARE OF NEW T-BAR ORDER, FAMILY AT BEDSIDE AND AWARE.
[2022-04-04 14:38] VITALS: BP_SYST 131
--- NOTE | 2022-04-04 15:10 | NUR ---
OFF VENT AND PLACED ON T-BAR 5LPM, FIO2 28% PER VERMANI ORDER. SPO2 98%, HR 80. ABG FOLLOWS IN ONE HOUR.
[2022-04-04] MEDS: D5/0.45 NS 1,000 ML IV SCH (15:15)
[2022-04-04 16:00] VITALS: BP_SYST 142
--- NOTE | 2022-04-04 18:49 | NUR ---
PER [facility], CREW IS DELAYED, P/U AT APPROX [phone], FAMILY AWARE.
--- NOTE | 2022-04-04 18:55 | NUR ---
CLOSING NOTE: REPORT GIVEN TO INCOMING NOC RN, ALL CARES ASSUMED.
[2022-04-04 20:00] VITALS: BP_SYST 154
--- NOTE | 2022-04-04 22:53 | NUR ---
D/C Patient Patient given medication reconciliation form and D/C instructions. Patient in stable condition, ID band removed. VSS. .
--- NOTE | 2022-04-06 08:23 | NUR ---
Dispo code 02
== END 2022-04-04 22:55 | DRG 4 ==
LOC: SED 10:41 → STU 15:55 → SIC 03-02 21:10 → SMU 03-08 22:20 → STU 03-08 23:34 → SIC 03-09 18:16 → STU 03-12 17:28 → SIC 03-19 04:45 → STU 03-31 14:24
PROVIDERS: ADMIT Internal Medicine; ATTEND Internal Medicine
PROC: 30233N1 Transfusion of Nonautologous Red Blood Cells into Peripheral Vein, Percutaneous Approach (ICD-10-PCS; 2022-03-04)
PROC: 4A10X4Z Monitoring of Central Nervous Electrical Activity, External Approach (ICD-10-PCS; 2022-03-10)
PROC: 0DH63UZ Insertion of Feeding Device into Stomach, Percutaneous Approach (ICD-10-PCS; 2022-03-18)
PROC: 0DB78ZX Excision of Stomach, Pylorus, Via Natural or Artificial Opening Endoscopic, Diagnostic (ICD-10-PCS; 2022-03-18)
PROC: 5A1955Z Respiratory Ventilation, Greater than 96 Consecutive Hours (ICD-10-PCS; 2022-03-19)
PROC: 0BH17EZ Insertion of Endotracheal Airway into Trachea, Via Natural or Artificial Opening (ICD-10-PCS; 2022-03-19)
PROC: 4A10X4Z Monitoring of Central Nervous Electrical Activity, External Approach (ICD-10-PCS; 2022-03-27)
PROC: 0B110F4 Bypass Trachea to Cutaneous with Tracheostomy Device, Open Approach (ICD-10-PCS; principal; 2022-03-30 16:45)
DX: U07.1 COVID-19 (principal); J96.01 Acute respiratory failure with hypoxia; J12.82 Pneumonia due to coronavirus disease 2019; J69.0 Pneumonitis due to inhalation of food and vomit; K25.4 Chronic or unspecified gastric ulcer with hemorrhage; K29.71 Gastritis, unspecified, with bleeding; G92.8 Other toxic encephalopathy; E43 Unspecified severe protein-calorie malnutrition; J96.21 Acute and chronic respiratory failure with hypoxia; K94.23 Gastrostomy malfunction; G93.1 Anoxic brain damage, not elsewhere classified; E46 Unspecified protein-calorie malnutrition; Z68.1 Body mass index [BMI] 19.9 or less, adult; J44.0 Chronic obstructive pulmonary disease with (acute) lower respiratory infection; N39.0 Urinary tract infection, site not specified; Z99.11 Dependence on respirator [ventilator] status; N17.9 Acute kidney failure, unspecified; E87.0 Hyperosmolality and hypernatremia; I13.0 Hypertensive heart and chronic kidney disease with heart failure and stage 1 through stage 4 chronic kidney disease, or unspecified chronic kidney disease; F02.80 Dementia in other diseases classified elsewhere, unspecified severity, without behavioral disturbance, psychotic disturbance, mood disturbance, and anxiety; E86.0 Dehydration; G40.909 Epilepsy, unspecified, not intractable, without status epilepticus; G20 Parkinson's disease; R13.10 Dysphagia, unspecified; Z66 Do not resuscitate; D63.1 Anemia in chronic kidney disease; I50.9 Heart failure, unspecified; N18.30 Chronic kidney disease, stage 3 unspecified; E11.22 Type 2 diabetes mellitus with diabetic chronic kidney disease; E87.5 Hyperkalemia; E83.39 Other disorders of phosphorus metabolism; E11.65 Type 2 diabetes mellitus with hyperglycemia; D50.0 Iron deficiency anemia secondary to blood loss (chronic); B96.20 Unspecified Escherichia coli [E. coli] as the cause of diseases classified elsewhere; B96.1 Klebsiella pneumoniae [K. pneumoniae] as the cause of diseases classified elsewhere; B95.7 Other staphylococcus as the cause of diseases classified elsewhere; Z79.01 Long term (current) use of anticoagulants; Z86.73 Personal history of transient ischemic attack (TIA), and cerebral infarction without residual deficits; Z86.718 Personal history of other venous thrombosis and embolism
CPT/HCPCS: 0241U; 36415; 36600; 43239; 43246; 70450-TC; 71045; 76376; 76770; 80048; 80053; 80076; 80202; 81000; 82009; 82140; 82542; 82550; 82728; 82803-TC; 82962; 83605; 83615; 83735; 83880; 84100; 84132; 84311; 84484; 85007; 85025; 85027; 85379; 85384; 85610-TC; 85730-TC; 86140; 86886; 86900; 86901; 86920; 87040; 87070-TC; 87081; 87086; 87205-TC; 88305; 88312; 88313; 92610-GN; 93005; 93306; 93971; 94002; 94003; 94640; 94760; 95816; 99285; C9113; G0378; J0330; J0360; J0456; J0461; J0690; J0696; J1030; J1100; J1630; J1650; J1815; J1940; J1953; J2001; J2175; J2250; J2543; J2704; J2930; J3370; J3475; J3480; J3490; J7050; J7060; P9021; P9046; U0003